=== PATIENT | male | born 1950 | race Caucasian/White ===

== ENCOUNTER 2020-02-20 09:42 | Inpatient (IN) ==
[2020-02-20] MEDS ORDERED: DEXTROSE 50% 50 ML VIAL IV ONE (09:56)
[2020-02-20] MEDS ORDERED: 0.9 % SODIUM CHLORIDE 1,000 ML IV ONE ×2 (10:05→14:09)
--- NOTE | 2020-02-20 10:20 | Emergency Department Note ---
Weakness HPI General Chief complaint: Weakness Stated complaint: Low bp, not eating or drinking Time Seen by Provider: 02/20/20 10:04 Source: EMS Mode of arrival: EMS Limitations: physical limitation History of Present Illness HPI Narrative: Narrative: This 69-year-old gentleman is here accompanied by his , Meli, and was transported by EMS who found him to have a blood pressure 82/55 and a low blood sugar of 35 in route. Patient has had poor oral intake for several days, no appetite, and reports she was trying to get him to eat something. He has not really even drank. She did not believe he urinated at all yesterday and then became incontinent this morning. He was too weak to get out of his chair. He has been in the chair, recliner, for several days. His is the one who called EMS. He has had some chills and sweats beginning yesterday. He reports "I feel like crap" x2 to 3 days and this includes weakness, tiredness and some discomfort in his back and neck areas which are chronic as well. She reports that he last truly 8 5 days ago. She reports that he did some mcghee ucinating. He does not use oxygen at home. He has not had alcohol for a couple of days. He usually drinks 3-4 drinks of vodka per day. He has not had a history of withdrawals. No new shakiness. He always has a slight tremor. No previous low blood sugars. Has had some leg swelling but his legs have been down because of the reclining sitting position. Related Data Previous Rx's Medication Instructions Recorded acetaminophen 240 mg-codeine 24 7.5 ml PO QID PRN #120 ml 03/14/19 mg/10 mL (10 mL) oral solution doxycycline hyclate 100 mg tablet 100 mg PO BID #20 tab 03/14/19 amoxicillin 875 mg-potassium 1 tab PO BID 10 Days #20 tab 05/12/19 clavulanate 125 mg tablet amlodipine 10 mg tablet 10 mg PO QDAY #90 tab 08/15/19 atorvastatin 40 mg tablet 40 mg PO QDAY #90 tab 08/15/19 lansoprazole 30 mg capsule,delayed 30 mg PO QDAY #90 cap 08/15/19 release losartan 100 1 tab PO QDAY #90 tab 03/30/20 mg-hydrochlorothiazide 25 mg tablet nadolol 40 mg tablet 40 mg PO QDAY #90 tab 08/15/19 sertraline 50 mg tablet 50 mg PO QDAY #90 tab 08/15/19 Allergies Allergy/AdvReac Type Severity Reaction Status Date / Time No Known Drug Allergies Allergy Verified 02/20/20 09:42 Review of Systems ROS ROS Narrative: Narrative: No fevers at home but has had the chills and sweats yesterday Has had a little blurry vision no sore throat. Has some chronic runny nose. Has a mild no cough. Has some chronic phlegm. No abdominal pain, nausea, vomiting, diarrhea, constipation, hematochezia. No dysuria. Has the incontinence this morning. No headaches. Does feel generally quite weak. No anxiety or depression. Has some recent grief due to the loss of the past several days. Feels quite fatigued. He does feel cold quite a bit of the time but is not reactive. No bruising. PFS Narrative Patient History Narrative: Narrative: DENIES: Diabetes, coronary artery disease, [place], renal disease, COPD, DVT, PE, BAILEE, pneumonia, chronic narcotics (had been previously but off for 3 or 4 year s), CVA, TIA, anxiety, depression. Medical/Surgical/Family History All Active Problems (Updated 02/20/20 @ 15:09 by Frank Arrieta DO) Acute dehydration (Acute) Rhabdomyolysis (Acute) Acute renal failure (ARF) (Acute) Hypotension (Acute) Hyponatremia (Acute) Elevated brain natriuretic peptide (BNP) level (Acute) Hypocalcemia (Acute) Alcoholism, chronic (Acute) Hypoglycemia (Acute) High anion gap metabolic acidosis (Acute) Thrombocytopenia (Acute) Alcohol abuse, daily use (Chronic) Chronic low back pain without sciatica (Chronic) Arthritis of right acromioclavicular joint (Chronic) Essential (primary) hypertension (Chronic) Depression (Chronic) Joint pain (Chronic) Insomnia (Chronic) High cholesterol (Chronic) High blood pressure (Chronic) Arthritis (Chronic) Acid reflux (Chronic) Medical History (Updated 02/20/20 @ 15:09 by Frank Arrieta DO) Acid reflux (Chronic) Alcohol abuse, daily use (Chronic) Arthritis (Chronic) High blood pressure (Chronic) High cholesterol (Chronic) Insomnia (Chronic) Joint pain (Chronic) Surgical History (Updated 02/20/20 @ 10:13 by Frank Arrieta DO) History of colonoscopy (Chronic) No history of previous surgery (Inactive) Family History Migraines Mother Social History Smoking Status: Never smoker Alcohol Intake Frequency: 2+ drinks per day Substance Use: does not use Exam Narrative Narrative: Narrative: General Limitations: physical limitation General appearance: Present alert, anxious (And his general appearance/countenance although not acting so much.), in no apparent distress, nontoxic, obese and other (Wide-awake.) Head Head: Present atraumatic and normocephalic Eye Eye: Present normal appearance, PERRL (2-1/2 mm constricting mildly bilaterally.) and EOMI ENT ENT: Present mucous membranes dry (Very dry) and other (Midline tongue and uvula.) Neck Neck: Present trachea midline; Absent lymphadenopathy and thyromegaly Chest Chest: Present symmetric chest wall rise Respiratory Respiratory: Present wheezes (Rare), accessory muscle use (Slight), decreased breath sounds and other (Oximetry keeps dipping down to as low as 86% with good tracking on the pleth; oxygen added.); Absent respiratory distress, rales/crackles, stridor and prolonged expiratory phase Cardiovascular Cardiovascular: Present regular rate, normal rhythm and other (Quite distant.); Absent systolic murmur and diastolic murmur Adbominal Abdominal: Present soft, tenderness (Mild-moderate diffuse.) and other (Quite abdominally obese. Moderately tympanitic in the upper abdomen.); Absent distention, guarding, rebound, rigidity, organomegaly and mass Extremities Extremities: Present pedal edema (Trace bilateral), pretibial edema (Mild bilateral pitting. 1/4 in the ankles.) and other (Moderately cool in his hands.); Absent calf tenderness and cyanosis Back Back: Present tenderness (Generalized in the low back.); Absent CVA tenderness (R), CVA tenderness (L) and spinous process tenderness Neurological Neurological: Present alert, oriented X3 and other (Speech is a little slow.) Psychiatric Psychiatric: Present flat affect and serious; Absent depressed, agitated, anxious and poor eye contact Skin Skin: Present cool, dry and pallor (Mild.); Absent cyanosis Course Vital Signs Vital signs: Vital Signs Temperature 97.6 F 02/20/20 09:43 Pulse Rate 73 02/20/20 09:43 Respiratory Rate 20 02/20/20 09:43 Blood Pressure 124/105 02/20/20 09:43 Pulse Oximetry (%) 96 02/20/20 09:43 Temperature 97.6 F 02/20/20 09:43 Pulse Rate 80 02/20/20 14:58 Respiratory Rate 20 02/20/20 14:58 Blood Pressure 104/57 02/20/20 14:50 Pulse Oximetry (%) 99 02/20/20 14:58 MDM MDM Narrative Medical decision making narrative: No available old EKG.Narrative: 9:52 AM interviewed and examined. Weakness times several days. Poor oral intake x5 days. History of alcoholism chronic daily. We will do multiple labs and work-ups. With the hypoxia I am choosing to do an ABG and lactate. Will do alcohol level and chest x-ray as well. 10:21 AM - EKG demonstrates repolarization abnormality consider ischemia in the anterior leads. This per the interpretation. There is 1 mm to 1.5 mm depression in V3-V5. Flattening in 2 3 and aVF. Rate is somewhat irregular. Probable A. fib with some premature contractions. Repeat blood sugar initially was 95 or thereabouts. A follow-up 1 was 65. D10 NS ordered. 10:55 AM - ABG with a pH of 7.27, PCO2 of 29, PO2 of 75. Base excess low at - 12.2. Bicarb quite low also at 13.3. Plus a rather significant acidosis, metabolic, partially compensated. Lactic acid on the ABG 1.7. 11:26 AM chest x-ray borderline cardiomegaly but no evidence of CHF or infilt rate. Because of patient's significant metabolic acidosis, starvation related probably, recurring low blood sugars, likely will need to be admitted. Multiple labs still pending. 12:10 PM patient's blood pressures have crept downward even into the 70s. Additional fluids were given. Blood sugar at 122. Blood pressures did seem to come up with this but later crept back down. Additional history includes that he has had several episodes of diarrhea today. CBC comes back with 13.0/37.7 and this is not unusual for him it does not appear that as far as I can tell. Platelets low at 102. Alcohol level 0.010. CK elevated at 1967. Patient's blood sugars required additional D5 normal saline to be infused. He is given an additional liter of combination of D5 NS and NS due to persisting low blood pressures. And with this levo fed ordered. Blood pressures came up to 90s, map of 67. Levophed held but if it persists going well will be started. 2:54 PM I spoke with Dr. Nava regarding patient's metabolic acidosis with anion gap and his acute renal failure. He asks about if patient has ingested anything such as antifreeze. He is willing to follow-up on patient. 3:00 Call out to hospitalist for admission. 3:18 PM - I spoke with hospitalist, Dr. Bogdan Julien, and reviewed patient's circumstances and issues, and he is willing to accept patient's care. I believe patient will be going to ICU. Lab Data Result diagrams: 02/20/20 10:17 02/20/20 10:17 Labs: Lab Results 02/20/20 02/20/20 02/20/20 Range/Units 10:17 10:17 10:17 WBC 8.5 (4.5-11.0) K/mcL RBC 3.58 L (4.50-5.90) M/mcL Hgb 13.0 L (13.5-16.5) g/dL Hct 37.7 L (41.0-55.0) % MCV 105.3 H (80.0-100.0) fL MCH 36.3 H (26.0-34.0) pg MCHC 34.5 (31.0-36.0) g/dL RDW 13.2 (11.5-14.5) % Plt Count 102 L (140-440) K/mcL MPV 10.4 (7.4-10.4) fL Neut % (Auto) 87.8 H (38.0-78.0) % Lymph % (Auto) 3.5 L (15.0-49.0) % [place] % (Auto) 6.1 (1.0-12.0) % Eos % (Auto) 2.5 (0.0-7.0) % Baso % (Auto) 0.1 (0.0-2.0) % Lymph # (Auto) 0.30 L (1.50-4.80) K/mcL [place] # (Auto) 0.52 (0.10-0.90) K/mcL Eos # (Auto) 0.21 (0.00-0.70) K/mcL Baso # (Auto) 0.01 (0.00-0.20) K/mcL Sodium 129 L (133-145) mmol/L Potassium 3.3 (3.3-5.1) mmol/L Chloride 83 L (96-108) mmol/L Carbon Dioxide 11 L (22-30) mmol/L Anion Gap 35.0 H (8.0-16.0) BUN 44 H (8-23) mg/dL Creatinine 3.6 H (0.7-1.2) mg/dL GFR Calculation 16 Glucose 84 (70-105) mg/dL Calcium 8.0 L (8.6-10.4) mg/dL Magnesium 1.6 (1.6-2.5) mg/dL Total Bilirubin 1.4 H (0.1-1.0) mg/dL AST 167 H (<40) U/L ALT 107 H (<40) U/L Alkaline Phosphatase 130 H (39-117) U/L Total Creatine Kinase (24-195) U/L Troponin T 0.01 (<0.03) ng/mL NT-Pro-B Natriuret Pep 1596.0 H (<125.0) pg/mL Total Protein 6.2 (5.9-8.4) gm/dL Albumin 3.2 (3.2-5.2) gm/dL Globulin 3.0 (2.2-3.7) gm/dL Albumin/Globulin Ratio 1.1 (1.0-2.3) TSH 0.56 (0.27-5.01) uIU/mL Ethyl Alcohol (<0.010) gm/dL Abs Neutrophil Control 7.44 (1.80-8.00) K/mcL 02/20/20 02/20/20 Range/Units 10:17 10:17 WBC (4.5-11.0) K/mcL RBC (4.50-5.90) M/mcL Hgb (13.5-16.5) g/dL Hct (41.0-55.0) % MCV (80.0-100.0) fL MCH (26.0-34.0) pg MCHC (31.0-36.0) g/dL RDW (11.5-14.5) % Plt Count (140-440) K/mcL MPV (7.4-10.4) fL Neut % (Auto) (38.0-78.0) % Lymph % (Auto) (15.0-49.0) % Carroll % (Auto) (1.0-12.0) % Eos % (Auto) (0.0-7.0) % Baso % (Auto) (0.0-2.0) % Lymph # (Auto) (1.50-4.80) K/mcL [place] # (Auto) (0.10-0.90) K/mcL Eos # (Auto) (0.00-0.70) K/mcL Baso # (Auto) (0.00-0.20) K/mcL Sodium (133-145) mmol/L Potassium (3.3-5.1) mmol/L Chloride (96-108) mmol/L Carbon Dioxide (22-30) mmol/L Anion Gap (8.0-16.0) BUN (8-23) mg/dL Creatinine (0.7-1.2) mg/dL GFR Calculation Glucose (70-105) mg/dL Calcium (8.6-10.4) mg/dL Magnesium (1.6-2.5) mg/dL Total Bilirubin (0.1-1.0) mg/dL AST (<40) U/L ALT (<40) U/L Alkaline Phosphatase (39-117) U/L Total Creatine Kinase 1967 H (24-195) U/L Troponin T (<0.03) ng/mL NT-Pro-B Natriuret Pep (<125.0) pg/mL Total Protein (5.9-8.4) gm/dL Albumin (3.2-5.2) gm/dL Globulin (2.2-3.7) gm/dL Albumin/Globulin Ratio (1.0-2.3) TSH (0.27-5.01) uIU/mL Ethyl Alcohol 0.010 H (<0.010) gm/dL Abs Neutrophil Control (1.80-8.00) K/mcL Discharge Plan Patient/Caregiver Discharge Instructions Pt seen by CLINICAL RESEARCH DIRECTOR/PA only: No Clinical Impression: Acute dehydration, Rhabdomyolysis, Acute renal failure (ARF), Hypotension, Hyponatremia, Elevated brain natriuretic peptide (BNP) level, Hypocalcemia, Alcoholism, chronic, Hypoglycemia, High anion gap metabolic acidosis, Thrombocytopenia Patient Disposition: Xfer As Inpt ([facility]) Follow up with: Scott Jasso DO [Primary Care Provider] - Prescriptions: No Action amoxicillin-pot clavulanate [Augmentin] 875-125 mg tablet 1 tab PO BID 10 Days Qty: 20 RF: 0 amlodipine 10 mg tablet 10 mg PO QDAY Qty: 90 RF: 3 atorvastatin 40 mg tablet 40 mg PO QDAY Qty: 90 RF: 3 lansoprazole 30 mg capsule,delayed release(DR/EC) 30 mg PO QDAY Qty: 90 RF: 3 losartan-hydrochlorothiazide 100-25 mg tablet 1 tab PO QDAY Qty: 90 RF: 3 nadolol 40 mg tablet 40 mg PO QDAY Qty: 90 RF: 3 sertraline 50 mg tablet 50 mg PO QDAY Qty: 90 RF: 3 doxycycline hyclate 100 mg tablet 100 mg PO BID Qty: 20 RF: 0 acetaminophen 240 mg-codeine 24 mg/10 mL (10 mL) oral solution 240 mg-24 mg /1 0 mL (10 mL) solution 7.5 ml PO QID PRN (Reason: shortness of breath or wheezing) Qty: 120 RF: 0
--- NOTE | 2020-02-20 11:05 | XRay Report ---
HISTORY: Hypoxia, low blood pressure, weakness and cough FINDINGS: Heart appears mildly enlarged and is larger than it was on a prior two-view chest x-ray done on 03/14/19. However, current study was done portably which magnifies the heart size. There is no congestive heart failure or pleural effusion. The lungs are clear. The mediastinum and hilar normal. IMPRESSION: Borderline Cardiomegaly and no evidence of pneumonia or congestive heart failure Interpreted and Authenticated by: Tan Varghese 02/20/20
[2020-02-20] MEDS ORDERED: DEXTROSE 5%-NS 1,000 ML IV ONE (11:37)
[2020-02-20 12:19] LABS: Basophils # (Auto) 0.01 K/mcL (0.00-0.20); Basophils % (Auto) 0.1 % (0.0-2.0); Eosinophils # (Auto) 0.21 K/mcL (0.00-0.70); Eosinophils % (Auto) 2.5 % (0.0-7.0); Hematocrit 37.7 % (41.0-55.0); Lymphocytes % (Auto) 3.5 % (15.0-49.0); Mean Cell Volume 105.3 fL (80.0-100.0); Mean Corpuscular HGB Conc 34.5 g/dL (31.0-36.0); Mean Platelet Volume 10.4 fL (7.4-10.4); Monocytes # (Auto) 0.52 K/mcL (0.10-0.90); Monocytes % (Auto) 6.1 % (1.0-12.0); Neutrophils % (Auto) 87.8 % (38.0-78.0); Platelet Count 102 K/mcL (140-440); RBC 3.58 M/mcL (4.50-5.90); Red Cell Distribution Width 13.2 % (11.5-14.5); WBC 8.5 K/mcL (4.5-11.0)
[2020-02-20 12:27] LABS: Alcohol, Blood < 10.0 mg/dL
[2020-02-20 12:32] LABS: Creatine Kinase 1967 U/L (24-195)
[2020-02-20 14:44] LABS: ALT/SGPT 107 U/L (<40); AST/SGOT 167 U/L (<40); Albumin 3.2 gm/dL (3.2-5.2); Albumin/Globulin Ratio 1.1 (1.0-2.3); Alkaline Phosphatase 130 U/L (39-117); Bilirubin,Total 1.4 mg/dL (0.1-1.0); Blood Urea Nitrogen 44 mg/dL (8-23); Carbon Dioxide 11 mmol/L (22-30); Chloride 83 mmol/L (96-108); Glomerular Filtration Rate 16; Glucose 84 mg/dL (70-105)
[2020-02-20] MEDS ORDERED: NOREPINEPHRINE BITARTRATE 8 MG in 0.9 % SODIUM CHLORIDE 242 ML IV SCH (14:45)
[2020-02-20] MEDS ORDERED: 0.9 % SODIUM CHLORIDE 250 ML IV SCH (14:45)
[2020-02-20 14:46] LABS: Thyroid Stimulating Hormone 0.56 uIU/mL (0.27-5.01)
[2020-02-20] MEDS ORDERED: THIAMINE 100 MG in 0.9 % SODIUM CHLORIDE 50 ML IV ONE ×2 (15:15→16:32)
--- NOTE | 2020-02-20 15:27 | Nephrology Consult Note ---
HPI Data of Consult Primary Care Provider: Scott Jasso DO Consult Narrative Patient Information: Note initiated : 02/20/20 at 3:22 pm Service Date, if different from initiated Date: [] Patient: Sindhu Delgado 69 y/o M admitted on for Low BP, Not Eating/Drinking. Chief Complaint: [Sick] cc:: CC: I was asked to provide renal consultation on this 69-year-old woman who prese nted to the ER with multiple fluid and electrolyte abnormalities, hypotension refractory to 2-1/2 L of IV fluids, metabolic acidosis, elevated alcohol level, acute renal failure with prior serum creatinine normal in 2019. She also had some hypoglycemia requiring IV dextrose. While she is hypotensive now he has a history of hypertension being treated with a combination of calcium channel xavier, beta-xavier, NOLA inhibitors. Additional history provided by the patient's who is at the bedside includes that he has been retired for a number of years, consumes 4 or so alcoholic beverages a day, has no history of previous renal dysfunction, congestive heart failure, etc. No recent nausea or vomiting but he does report some diarrhea this morning. Not been eating or drinking much for over a week but has continued to take his medications which included amlodipine 10mg, losartan HCT 100/25, nadalol 40 mg. Laboratory Results - last 48 hr 02/20/20 02/20/20 02/20/20 10:17 10:17 10:17 WBC 8.5 RBC 3.58 L Hgb 13.0 L Hct 37.7 L MCV 105.3 H MCH 36.3 H MCHC 34.5 RDW 13.2 Plt Count 102 L MPV 10.4 Neut % (Auto) 87.8 H Lymph % (Auto) 3.5 L [place] % (Auto) 6.1 Eos % (Auto) 2.5 Baso % (Auto) 0.1 Lymph # (Auto) 0.30 L [place] # (Auto) 0.52 Eos # (Auto) 0.21 Baso # (Auto) 0.01 Sodium 129 L Potassium 3.3 Chloride 83 L Carbon Dioxide 11 L Anion Gap 35.0 H BUN 44 H Creatinine 3.6 H GFR Calculation 16 Glucose 84 Calcium 8.0 L Magnesium 1.6 Total Bilirubin 1.4 H AST 167 H ALT 107 H Alkaline Phosphatase 130 H Total Creatine Kinase 1967 Troponin T 0.01 NT-Pro-B Natriuret Pep 1596.0 H Total Protein 6.2 Albumin 3.2 Globulin 3.0 Albumin/Globulin Ratio 1.1 TSH 0.56 Ethyl Alcohol 0.1 Abs Neutrophil Control 7.44 Do not correct the acidosis until the potassium has improved as this will further decrease the serum K level. We need to see the PO4 level before giving much in the way of IV glucose to prevent rhabdomyolysis. Once ethylene glycol intoxication has been ruled out, the next best explanation for this constellation of lab abnormalities would be alcoholic ketoacidosis or sepsis with a huge lactic acidosis. Obstruction needs to be ruled out as well. The lisinopril effect could take 72 hrs to wear off but there is no acute need for dialysis at this juncture. Constitutional Constitutional: Present as per HPI, anorexia, fatigue, lethargy, malaise and we akness; Absent fever(s) EENT Eyes: Present as per HPI Cardiovascular Cardiovascular: Present as per HPI, dyspnea and edema Respiratory Respiratory: Present cough, dyspnea, wheezing and excessive phlegm production Gastrointestinal Gastrointestinal: Present diarrhea Musculoskeletal Musculoskeletal: Present other Additional comments: No walking for about the past week Integumentary Integumentary: Present as per HPI and other Additional comments: . Neurological Neurological: Present abnormal gait, confusion, disequilibrium, tremor(s) and weakness Psychiatric Psychiatric: Present as per HPI and behavioral changes Additional comments: Prescribed SSRI Endocrine Endocrine: Present fatigue Hematologic/Lymphatic Hematologic/Lymphatic: Present easy bruising Allergic/Immunologic Allergic/Immunologic: Present as per HPI PFSH PFSH All Active Problems (Updated 02/20/20 @ 17:01 by Stephane Nava MD) Electrolyte abnormality (Acute) Acute dehydration (Acute) Rhabdomyolysis (Acute) Acute renal failure (ARF) (Acute) Hypotension (Acute) Hyponatremia (Acute) Elevated brain natriuretic peptide (BNP) level (Acute) Hypocalcemia (Acute) Alcoholism, chronic (Acute) Hypoglycemia (Acute) High anion gap metabolic acidosis (Acute) Thrombocytopenia (Acute) Alcohol abuse, daily use (Chronic) Chronic low back pain without sciatica (Chronic) Arthritis of right acromioclavicular joint (Chronic) Essential (primary) hypertension (Chronic) Depression (Chronic) Joint pain (Chronic) Insomnia (Chronic) High cholesterol (Chronic) High blood pressure (Chronic) Arthritis (Chronic) Acid reflux (Chronic) Medical History (Updated 02/20/20 @ 17:01 by Stephane Nava MD) Acid reflux (Chronic) Alcohol abuse, daily use (Chronic) Arthritis (Chronic) High blood pressure (Chronic) High cholesterol (Chronic) Insomnia (Chronic) Joint pain (Chronic) Surgical History (Updated 02/20/20 @ 10:13 by Frank Arrieta DO) History of colonoscopy (Chronic) No history of previous surgery (Inactive) Family History Mother Migraines Social History (Updated 02/20/20 @ 15:56 by Bogdan Julien DO) marital status: occupational status: retired smoking status: Never smoker alcohol intake frequency: 2+ drinks per day substance use type: does not use additional history: States 3-4 drinks of vodka per day MEDS/ALLERGIES Home Medications and Allergies Home Medications Medication Instructions Recorded Confirmed Type amlodipine 10 mg tablet 10 mg PO QDAY #90 tab 08/15/19 02/20/20 Rx atorvastatin 40 mg tablet 40 mg PO QDAY #90 tab 08/15/19 02/20/20 Rx lansoprazole 30 mg capsule,delayed 30 mg PO QDAY #90 cap 08/15/19 02/20/20 Rx release losartan 100 1 tab PO QDAY #90 tab 08/15/19 02/20/20 Rx mg-hydrochlorothiazide 25 mg tablet nadolol 40 mg tablet 40 mg PO QDAY #90 tab 08/15/19 02/20/20 Rx sertraline 50 mg tablet 50 mg PO QDAY #90 tab 08/15/19 02/20/20 Rx Allergies Allergy/AdvReac Type Severity Reaction Status Date / Time No Known Drug Allergies Allergy Verified 02/20/20 09:42 Physical Examination Vital Signs Vital signs: Temp Pulse Resp BP Pulse Ox 36.4 C 80 20 104/57 99 02/20/20 09:43 02/20/20 14:58 02/20/20 14:58 02/20/20 14:50 02/20/20 14:58 General Appearance General appearance: obese and chronically ill Exam Narrative: Disheveled EENT EENT: ATNC, PERRL and mucous membranes dry Neck Neck: no JVD, no carotid bruit and supple Respiratory Respiratory: no kyphosis, scoliosis, wheezing, course breath sounds and rhonchi Cardiovascular Cardiology: no murmurs, no gallops, edema, regular rate and regular rhythm Gastrointestinal Gastrointestinal: normoactive bowel sounds, no tenderness and no guarding Integumentary Integumentary: no rash and cool/clammy Neurologic Neurologic: no focal deficit, asterixis, strength 5/5 (4 out of 5 strength bilaterally) and CN 3-12 intact (No lateral rectus weakness) Musculoskeletal Musculoskeletal: no erythema, no cyanosis and no clubbing Psychiatric Psychiatric: mood/affect appropriate (Flat affect, answers appropriately) Results Lab Results Result Diagrams: 02/20/20 10:17 02/20/20 10:17 Lab results: Most recent lab results Calcium 8.0 mg/dL (8.6-10.4) L 02/20/20 10:17 Magnesium 1.6 mg/dL (1.6-2.5) 02/20/20 10:17 A/P Assessment and plan (1) Acute renal failure (ARF): Assessment and plan: Easiest explanation would be dehydration in the setting of hypotension and continued NOLA inhibitor administration Unfortunately that will not explain the bulk of the electrolyte abnormalities nor will I did explain the metabolic acidosis Rhabdomyolysis is present but seems to be low-grade I suspect part of what is going on is alcoholic ketoacidosis Must rule out ethylene glycol intoxication given the large metabolic acidosis We will need to calculate his serum osmolar gap, fractional excretion of sodium, look for granular casts as well as calcium oxalate crystals as soon as the urine becomes available. Continue hydration with methodist of systolic blood pressure around 100 Status: Acute Comment: Last creatinine in 2019 was normal Qualifiers: Acute renal failure type: unspecified Qualified Code(s): N17.9 - Acute kidney failure, unspecified (2) High anion gap metabolic acidosis: Assessment and plan: Alcoholic ketoacidosis is my #1 choice With or without a component of lactic acidosis Need to rule out any need to rule out any methanol or ethylene glycol contributing though he denies drinking either of these Status: Acute (3) Alcoholism, chronic: Status: Acute Comment: reports 4-5 alcoholic beverages daily and he had a detectable alcohol level of 0.01 on admission. He has other hematologic signs of chronic alcohol use including high MCV and low platelet count (4) Hypotension: Status: Acute Comment: says his blood pressures been running running on the low side recently so could be due to his medications Qualifiers: Hypotension type: hypotension due to drug Qualified Code(s): I95.2 - Hypotension due to drugs (5) Electrolyte abnormality: Status: Acute Comment: Suspect alcohol related electrolyte abnormalities as acute renal failure from just dehydration and NOLA inhibitors tends to have a high potassium not low (6) Rhabdomyolysis: Assessment and plan: Suspect this is alcohol induced rhabdomyolysis need to check his phosphorus Status: Acute Comment: Suspect alcohol related Qualifiers: Encounter type: initial encounter Time Spent With Patient Time: Total time spent is greater than 50% in coordination of care (as documented) at patient's floor/unit and/or counseling patient:
[2020-02-20] MEDS ORDERED: [UNRECOGNIZED DRUG - REMARK] IV SCH (15:30)
[2020-02-20] MEDS ORDERED: [UNRECOGNIZED DRUG - REMARK] IV SCH (15:30)
--- NOTE | 2020-02-20 16:09 | Internal Med History&Physical ---
HPI History of Present Illness Patient information: Note initiated : 02/20/20 at 3:53 pm Service Date, if different from initiated Date: [] Patient: Sindhu Delgado a 69 y/o M admitted on for Low BP, Not Eating/Drinking. Chief Complaint: [] History of present illness: Mr. Delgado is a 69 year old M Presents the ED with weakness. History obtained from the patient as well as patient's . Patient is quite sedentary, sitting in chair most of the day, and does not eat very much typically a meal per day per his . About 5 days ago with adequate down their dog who is emotionally attached to and is quite devastating for him. That time he lost interest in eating. He has continued to drink for which he drinks 3-4 drinks of liquor per day although says he did have is much yesterday. Per the he acted a little confused this morning. Did have one episode of diarrhea in the ED. Denies chest pain or shortness of breath or abdominal pain. Denies headache fevers. Per he is always slightly tremulous but he seemed more shaky this morning. She called EMS who arrived and found that he was hypotensive and he had hypoglycemia and was given fluids and glucose. ED he was given almost 3 L of IV fluid. His says he looks better than when he arrived. Review of Systems: Pertinent positives as above. Denies headache/fevers/nausea/vomiting/chest or abdominal pain/cough/dyspnea. Remaining 10 point review of system reviewed negative PFSH PFSH All Active Problems (Updated 02/20/20 @ 15:09 by Frank Arrieta DO) Acute dehydration (Acute) Rhabdomyolysis (Acute) Acute renal failure (ARF) (Acute) Hypotension (Acute) Hyponatremia (Acute) Elevated brain natriuretic peptide (BNP) level (Acute) Hypocalcemia (Acute) Alcoholism, chronic (Acute) Hypoglycemia (Acute) High anion gap metabolic acidosis (Acute) Thrombocytopenia (Acute) Alcohol abuse, daily use (Chronic) Chronic low back pain without sciatica (Chronic) Arthritis of right acromioclavicular joint (Chronic) Essential (primary) hypertension (Chronic) Depression (Chronic) Joint pain (Chronic) Insomnia (Chronic) High cholesterol (Chronic) High blood pressure (Chronic) Arthritis (Chronic) Acid reflux (Chronic) Medical History (Updated 02/20/20 @ 15:09 by Frank Arrieta DO) Acid reflux (Chronic) Alcohol abuse, daily use (Chronic) Arthritis (Chronic) High blood pressure (Chronic) High cholesterol (Chronic) Insomnia (Chronic) Joint pain (Chronic) Surgical History (Updated 02/20/20 @ 10:13 by Frank Arrieta DO) History of colonoscopy (Chronic) No history of previous surgery (Inactive) Family History Mother Migraines Social History (Updated 02/20/20 @ 15:56 by Bogdan Julien DO) marital status: occupational status: retired smoking status: Never smoker alcohol intake frequency: 2+ drinks per day substance use type: does not use additional history: States 3-4 drinks of vodka per day MEDS/ALLERGIES Home Medications and Allergies Home Medications Medication Instructions Recorded Confirmed Type acetaminophen 240 mg-codeine 24 7.5 ml PO QID PRN #120 ml 03/14/19 05/09/19 Rx mg/10 mL (10 mL) oral solution doxycycline hyclate 100 mg tablet 100 mg PO BID #20 tab 03/14/19 05/09/19 Rx amoxicillin 875 mg-potassium 1 tab PO BID 10 Days #20 tab 05/12/19 Rx clavulanate 125 mg tablet amlodipine 10 mg tablet 10 mg PO QDAY #90 tab 08/15/19 Rx atorvastatin 40 mg tablet 40 mg PO QDAY #90 tab 08/15/19 Rx lansoprazole 30 mg capsule,delayed 30 mg PO QDAY #90 cap 08/15/19 Rx release losartan 100 1 tab PO QDAY #90 tab 08/15/19 Rx mg-hydrochlorothiazide 25 mg tablet nadolol 40 mg tablet 40 mg PO QDAY #90 tab 08/15/19 Rx sertraline 50 mg tablet 50 mg PO QDAY #90 tab 08/15/19 Rx Allergies Allergy/AdvReac Type Severity Reaction Status Date / Time No Known Drug Allergies Allergy Verified 02/20/20 09:42 EXAM Constitutional Vitals: Temp Pulse Resp BP Pulse Ox 97.6 F 80 20 104/57 99 02/20/20 09:43 02/20/20 14:58 02/20/20 14:58 02/20/20 14:50 02/20/20 14:58 Exam: General: Alert, Awake, No acute Distress Eyes/N/T: EOMI, PERRL, dry MM Head/Neck: neck supple, normocephalic atraumatic CV: RRR, No murmurs, normal s1/s2 Pulm: Mild expiratory wheeze b/l, no rhonchi Abd: soft, nontender, +BS x4 Ext: no clubbing/cyanosis 2+ b/l LE edema Neuro: Alert, no focal deficits, moves all extremities, CN 2-12 grossly intact, symmetrical strength b/l upper/lower, sensations intact b/l upper/lower Skin: warm/dry DATA Data Completed and Pending Labs: Labs from last 24 hours 02/20/20 02/20/20 02/20/20 10:17 10:17 10:17 WBC RBC Hgb Hct MCV MCH MCHC RDW Plt Count MPV Neut % (Auto) Lymph % (Auto) Mchenry % (Auto) Eos % (Auto) Baso % (Auto) Lymph # (Auto) Mchenry # (Auto) Eos # (Auto) Baso # (Auto) Sodium Potassium Chloride Carbon Dioxide Anion Gap BUN Creatinine GFR Calculation Glucose Osmolality Pending Calcium Phosphorus Magnesium Pending Total Bilirubin AST ALT Alkaline Phosphatase Total Creatine Kinase Troponin T NT-Pro-B Natriuret Pep Total Protein Albumin Globulin Albumin/Globulin Ratio TSH Salicylates Pending Ethylene Glycol Pending Ethyl Alcohol Abs Neutrophil Control 02/20/20 02/20/20 02/20/20 10:17 10:17 10:17 WBC RBC Hgb Hct MCV MCH MCHC RDW Plt Count MPV Neut % (Auto) Lymph % (Auto) Mchenry % (Auto) Eos % (Auto) Baso % (Auto) Lymph # (Auto) Mchenry # (Auto) Eos # (Auto) Baso # (Auto) Sodium Potassium Chloride Carbon Dioxide Anion Gap BUN Creatinine GFR Calculation Glucose Osmolality Calcium Phosphorus Pending Magnesium Total Bilirubin AST ALT Alkaline Phosphatase Total Creatine Kinase 1967 H Troponin T NT-Pro-B Natriuret Pep Total Protein Albumin Globulin Albumin/Globulin Ratio TSH Salicylates Ethylene Glycol Ethyl Alcohol 0.010 H Abs Neutrophil Control 02/20/20 02/20/20 02/20/20 10:17 10:17 10:17 WBC 8.5 RBC 3.58 L Hgb 13.0 L Hct 37.7 L MCV 105.3 H MCH 36.3 H MCHC 34.5 RDW 13.2 Plt Count 102 L MPV 10.4 Neut % (Auto) 87.8 H Lymph % (Auto) 3.5 L Mchenry % (Auto) 6.1 Eos % (Auto) 2.5 Baso % (Auto) 0.1 Lymph # (Auto) 0.30 L Mchenry # (Auto) 0.52 Eos # (Auto) 0.21 Baso # (Auto) 0.01 Sodium 129 L Potassium 3.3 Chloride 83 L Carbon Dioxide 11 L Anion Gap 35.0 H BUN 44 H Creatinine 3.6 H GFR Calculation 16 Glucose 84 Osmolality Calcium 8.0 L Phosphorus Magnesium 1.6 Total Bilirubin 1.4 H AST 167 H ALT 107 H Alkaline Phosphatase 130 H Total Creatine Kinase Troponin T 0.01 NT-Pro-B Natriuret Pep 1596.0 H Total Protein 6.2 Albumin 3.2 Globulin 3.0 Albumin/Globulin Ratio 1.1 TSH 0.56 Salicylates Ethylene Glycol Ethyl Alcohol Abs Neutrophil Control 7.44 A/P Narrative A/P Narrative: A: *Hypovolemic shock: *SULLY on likely CKD II: prerenal + possible ATN from above, doubt rhabdo *AG Met acidosis: 2/2 above + starvation ketosis + etoh *ETOH abuse with mild w/d: *Hypoglycemia: 2/2 poor diet + chronic etoh *Volume Depletion: *Hyponatremia/chloride: 2/2 beer potomania *Elevated CPK: 2/2 immobilization/etoh *Transaminitis, mild: 2/2 hypotension/?etoh component *HTN/HLD: *GERD: *FTT: 2/2 chronic alcoholism + recent life event P: -IVF, wean off vasopressors -monitor UOP, i/o -CIWA, prn Benzo, MVI/Thiamine/Folate -monitor BG -pending UA for casts and other metabolic studies -f/u CPK -Nephrology Consulted, further studies pending -check prealbumin -clarify home meds -hold home ARB/BB/CCB -cont home SSRI -pt/ot -ppx: heparin/home ppi DNR Time Spent With Patient Time: Total time spent is greater than 50% in coordination of care (as documented) at patient's floor/unit and/or counseling patient:
[2020-02-20] MEDS ORDERED: ACETAMINOPHEN 325 MG TABLET PO PRN (16:32)
[2020-02-20] MEDS ORDERED: ONDANSETRON 4 MG/2 ML VIAL IV PRN (16:32)
[2020-02-20] MEDS ORDERED: IPRATROPIUM/ALBUTEROL 3 ML AMPUL.NEB NEB PRN (16:32)
[2020-02-20] MEDS: 0.9 % SODIUM CHLORIDE 250 ML IV SCH (16:39)
[2020-02-20] MEDS: LACTATED RINGERS 1,000 ML IV SCH (16:46)
[2020-02-20 18:51] LABS: INR 1.1 (0.9-1.1); Prothrombin Time 14.3 sec (11.9-14.5)
[2020-02-20 19:18] LABS: Sodium, Urine Random 17 mmol/L
[2020-02-20 19:23] LABS: Appearance,Urine CLEAR (Clear); Bilirubin,Urine Negative (Negative); Color,Urine YELLOW; Culture Indicated,Urine No; Glucose,Urine (UA) Negative (Negative); Ketones,Urine 20 mg/dL (Negative); Leukocyte Esterase,Urine Negative /ug (Negative); Mucus,Urine FEW /hpf; Nitrate,Urine Negative (Negative); Protein,Urine 100 mg/dL (Negative); Specific Gravity,Urine 1.016 (1.000-1.035); Urine Blood >=1.0 mg/dL (Negative); Urine Hyaline Cast 3 /lph (0-2); Urine RBC 15 /hpf (0-1); Urine Squamous Epithelial Cell 1 /hpf (0-4); Urine WBC 2 /hpf (0-4)
[2020-02-20] MEDS: FAMOTIDINE/PF 20 MG/2 ML VIAL IV SCH (20:46)
[2020-02-20] MEDS: HEPARIN 5,000 UNIT/ML VIAL SQ SCH (20:46)
[2020-02-20] MEDS: 0.9 % SODIUM CHLORIDE 10 ML SYRINGE IV SCH (20:46)
[2020-02-20 23:00] LABS: Osmolality,Urine 370 mOSM/kg (80-1000)
[2020-02-21] MEDS: METOPROLOL TARTRATE 5 MG/5 ML VIAL IV SCH (00:55)
[2020-02-21] MEDS: LACTATED RINGERS 1,000 ML IV SCH ×3 (02:18→13:44)
[2020-02-21 03:26] LABS: Albumin 2.9 gm/dL (3.2-5.2); Blood Urea Nitrogen 38 mg/dL (8-23); Calcium 7.5 mg/dL (8.6-10.4); Carbon Dioxide 11 mmol/L (22-30); Chloride 93 mmol/L (96-108); Glomerular Filtration Rate 24; Glucose 75 mg/dL (70-105); Phosphorous 2.6 mg/dL (2.5-4.5)
[2020-02-21] MEDS: NOREPINEPHRINE BITARTRATE 8 MG in 0.9 % SODIUM CHLORIDE 242 ML IV SCH ×2 (05:42→16:58)
[2020-02-21] MEDS: 0.9 % SODIUM CHLORIDE 250 ML IV SCH ×2 (05:42→15:39)
[2020-02-21] MEDS: 0.9 % SODIUM CHLORIDE 10 ML SYRINGE IV SCH ×3 (05:43→20:14)
--- NOTE | 2020-02-21 07:16 | Internal Med Progress Note ---
SUBJECTIVE Subjective Patient information: Note initiated : 02/21/20 at 7:05 am Service Date, if different from initiated Date: [] Patient: Sindhu Delgado a 69 y/o M admitted on 02/20/20 for Low BP, Not Eating/Drinking. Chief Complaint: [] Interval history: History of present illness: Mr. Delgado is a 69 year old M Presents the ED with weakness. History obtained from the patient as well as patient's . Patient is quite sedentary, sitting in chair most of the day, and does not eat very much typically a meal per day per his . About 5 days ago with adequate down their dog who is emotionally attached to and is quite devastating for him. That time he lost interest in eating. He has continued to drink for which he drinks 3-4 drinks of liquor per day although says he did have is much yesterday. Per the he acted a little confused this morning. Did have one episode of diarrhea in the ED. Denies chest pain or shortness of breath or abdominal pain. Denies headache fevers. Per he is always slightly tremulous but he seemed more shaky this morning. She called EMS who arrived and found that he was hypotensive and he had hypoglycemia and was given fluids and glucose. ED he was given almost 3 L of IV fluid. His says he looks better than when he arrived. 02/20 Patient states he is feeling better. No overnight issues. However nurse does state that he has lots of oral secretions and appears that he has a hard time clearing them at times. Will get speech therapy evaluating. Vasopressors off last night. Awaiting follow-up labs. Good urine output. Review of Systems: denies headache/fever/chills/nausea/vomiting/chest or abdominal pain/cough/dyspnea/diarrhea. Otherwise see above. Constitutional Vitals: Vital Signs Temp Pulse Resp BP Pulse Ox 97.6 F 81 18 122/74 98 02/21/20 04:01 02/20/20 18:01 02/21/20 07:01 02/21/20 07:01 02/21/20 07:01 Period Temp Pulse Resp BP Sys/Lomeli Pulse Ox Last 24 Hr 97.6 F-99.2 F 63-86 13-28 60-142/37-120 87-100 Intake and Output 02/20/20 02/21/20 02/21/20 21:59 05:59 13:59 Intake Total 2166 2166 Output Total 509 1565 180 Balance 1657 601 -180 Weight 119.777 kg Intake & Output: Intake & Output 02/20/20 02/21/20 02/21/20 21:59 05:59 13:59 Intake Total 2166 2166 Output Total 509 1565 180 Balance 1657 601 -180 Weight 119.777 kg Intake: IV 2153 2166 Sodium Chloride 0.9% 1,000 ml @ 1000 Wide Open IV BOLUS ONE Rx#: [id number] Sodium Chloride 0.9% 250 ml @ 167 20 mls/hr IV .[id number] [facility] Rx#: [id number] Dextrose 5%-Ns IV Solution 1, 1000 000 ml @ 250 mls/hr IV .Q4H ONE Rx#:[id number] Lactated Ringers 1,000 ml @ 100 953 mls/hr IV .Q10H [facility] Rx#: [id number] Levophed 8 mg In Sodium 103 27 Chloride 0.9% 242 ml @ 10 MCG/ MIN 18.75 mls/hr IV Q14H [facility] Rx #:[id number] Potassium Chloride 10 Meq 1019 Magnesium Sulfate 16.24 Meq Infuvite Adult 10 ml In Sodium Chloride 0.9% 1,000 ml @ 250 mls/hr IV .Q4H5M [facility] Rx#: [id number] Vitamin B1 100 mg In Sodium 51 Chloride 0.9% 50 ml @ 50 mls/hr IV ONCE ONE Rx#:[id number] Oral 12 Output: Urine Catheter Amount 509 1565 180 Other: Urine Appearance Clear Clear Clear Uretheral (Sanchez) Clear Clear Urine Color Dark Yellow Light Rosa Dark Yellow Uretheral (Sanchez) Light Rosa Light Rosa Urine Odor Normal Normal Uretheral (Sanchez) Normal Stool Size Large Stool Color Brown Stool Consistency Liquid Watery # Bowel Movements 1 # of times incontinent of 1 Bowels Exam: General: Alert, Awake, No acute Distress Eyes/N/T: EOMI, Head/Neck: neck supple, CV: RRR, No murmurs, Pulm: Mild expiratory wheeze b/l, no rhonchi Abd: soft, nontender, +BS x4 Ext: no clubbing/cyanosis 2+ b/l LE edema imroved with BERYL's Neuro: Alert, no focal deficits, moves all extremities, Skin: warm/dry OBJ DATA Labs CBC & Chem 7: 02/20/20 10:17 02/20/20 22:19 Labs: Abnormal Lab Results 02/20/20 02/20/20 02/20/20 22:19 22:19 17:00 RBC Hgb Hct MCV MCH Plt Count Neut % (Auto) Lymph % (Auto) Lymph # (Auto) Sodium Potassium 3.0 L Chloride 93 L Carbon Dioxide 11 L Anion Gap 29.0 H BUN 38 H Creatinine 2.6 H Calcium 7.5 L Total Bilirubin AST ALT Alkaline Phosphatase Total Creatine Kinase NT-Pro-B Natriuret Pep Albumin 2.9 L Prealbumin Beta-Hydroxybutyrate 6.72 H Urine Protein 100 A Urine Ketones 20 A Urine Occult Blood >=1.0 A Urine Urobilinogen 4.0 A Urine RBC 15 H Hyaline Casts 3 H Urine Mucus Few A Ethyl Alcohol 02/20/20 02/20/20 02/20/20 10:17 10:17 10:17 RBC Hgb Hct MCV MCH Plt Count Neut % (Auto) Lymph % (Auto) Lymph # (Auto) Sodium Potassium Chloride Carbon Dioxide Anion Gap BUN Creatinine Calcium Total Bilirubin AST ALT Alkaline Phosphatase Total Creatine Kinase 1967 H NT-Pro-B Natriuret Pep Albumin Prealbumin 12.4 L Beta-Hydroxybutyrate Urine Protein Urine Ketones Urine Occult Blood Urine Urobilinogen Urine RBC Hyaline Casts Urine Mucus Ethyl Alcohol 0.010 H 02/20/20 02/20/20 10:17 10:17 RBC 3.58 L Hgb 13.0 L Hct 37.7 L MCV 105.3 H MCH 36.3 H Plt Count 102 L Neut % (Auto) 87.8 H Lymph % (Auto) 3.5 L Lymph # (Auto) 0.30 L Sodium 129 L Potassium Chloride 83 L Carbon Dioxide 11 L Anion Gap 35.0 H BUN 44 H Creatinine 3.6 H Calcium 8.0 L Total Bilirubin 1.4 H AST 167 H ALT 107 H Alkaline Phosphatase 130 H Total Creatine Kinase NT-Pro-B Natriuret Pep 1596.0 H Albumin Prealbumin Beta-Hydroxybutyrate Urine Protein Urine Ketones Urine Occult Blood Urine Urobilinogen Urine RBC Hyaline Casts Urine Mucus Ethyl Alcohol Meds: Medications Acetaminophen (Tylenol) 650 mg PO Q4-6HP PRN PRN Reason: PAIN/FEVER > 101 Albuterol/Ipratropium (Duoneb) 3 ml NEB Q4HRT PRN PRN Reason: dysnpea Atorvastatin Calcium (Lipitor) 40 mg PO QDAY [facility] Chlordiazepoxide HCl (Librium) 25 mg PO Q4HP PRN PRN Reason: Alcohol Withdrawal Famotidine (Pepcid) 20 mg IV HS [facility] Last Admin: 02/20/20 20:46 Dose: 20 mg Documented by: Folic Acid (Folic Acid) 1 mg PO DAILY [facility] Heparin Sodium (Porcine) (Heparin) 5,000 unit SQ Q12 [facility] Last Admin: 02/20/20 20:46 Dose: 5,000 unit Documented by: Norepinephrine Bitartrate 8 mg (/ Sodium Chloride) 250 mls @ 18.75 mls/hr IV Q14H [facility]; Protocol Last Admin: 02/21/20 05:42 Dose: Not Given Documented by: Lactated Ringer's (Lactated Ringers) 1,000 mls @ 100 mls/hr IV .Q10H [facility] Last Admin: 02/21/20 02:18 Dose: 100 mls/hr Documented by: Thiamine HCl 100 mg/ Sodium (Chloride) 51 mls @ 50 mls/hr IV DAILY [facility] Sodium Chloride (Sodium Chloride 0.9%) 250 mls @ 20 mls/hr IV .[id number] [facility] Last Admin: 02/21/20 05:42 Dose: Not Given Documented by: Iron Carb/Multivit/Launderette Attendant/Folic Acid (Multivitamin W/Minerals) 1 tab PO DAILY [facility] Lorazepam (Ativan) 0 mg IV Q4HP PRN; Protocol PRN Reason: Alcohol Withdrawal Ondansetron HCl (Zofran) 4 mg IV Q4-6HP PRN PRN Reason: Nausea And Vomiting Sertraline HCl (Zoloft) 50 mg PO QDAY [facility] Sodium Chloride (Saline Flush) 10 ml IV Q8 [facility] Last Admin: 02/21/20 05:43 Dose: 10 ml Documented by: A/P Narrative A/P Narrative: A: *Hypovolemic shock: poor oral intake + BP meds -off levophed *SULLY on likely CKD II: prerenal + possible ATN from above + ACEI, doubt from rhabdo -improving. no granular casts, hyaline present *AG Met acidosis: 2/2 above + starvation/alcohol ketosis *ETOH abuse with mild w/d: *Hypoglycemia: 2/2 poor diet + chronic etoh *Volume Depletion: *Hyponatremia/chloride: 2/2 beer potomania. improving *Elevated CPK: 2/2 immobilization/etoh -no granular *Transaminitis, mild: 2/2 hypotension/?etoh component *HTN/HLD: *GERD: *FTT/Malnutrition: 2/2 chronic alcoholism + recent life event. prealbumin 12 P: -IVF decrease, weaned off vasopressors -monitor UOP, i/o -CIWA, prn Benzo, MVI/Thiamine/Folate -monitor BG -f/u CPK -Nephrology following, further studies pending -hold home ARB/BB/CCB -cont home SSRI -pt/ot -ST -ppx: heparin/home ppi DNR Time Spent With Patient Time: Total time spent is greater than 50% in coordination of care (as documented) at patient's floor/unit and/or counseling patient: QUALITY VTE Deep Vein Thrombosis/Pulmonary Embolism Present on Admission: No
[2020-02-21] MEDS ORDERED: POTASSIUM CHLORIDE 40 MEQ in DEXTROSE 5% IN WATER 500 ML IV PRN (08:24)
[2020-02-21] MEDS ORDERED: POTASSIUM CHLORIDE 20 MEQ TABLET PO PRN ×2 (08:28→08:33)
[2020-02-21] MEDS ORDERED: MAGNESIUM SULFATE 2 GM/50 ML BAG IV PRN (08:35)
[2020-02-21 08:57] LABS: Hematocrit 33.9 % (41.0-55.0); Hemoglobin 11.7 g/dL (13.5-16.5); Mean Corpuscular HGB Conc 34.5 g/dL (31.0-36.0); Mean Platelet Volume 10.7 fL (7.4-10.4); Platelet Count 83 K/mcL (140-440); RBC 3.26 M/mcL (4.50-5.90); Red Cell Distribution Width 13.6 % (11.5-14.5); WBC 5.3 K/mcL (4.5-11.0)
[2020-02-21] MEDS: THIAMINE 100 MG in 0.9 % SODIUM CHLORIDE 50 ML IV SCH (08:58)
[2020-02-21] MEDS: ATORVASTATIN 40 MG TABLET PO SCH (08:59)
[2020-02-21] MEDS: HEPARIN 5,000 UNIT/ML VIAL SQ SCH ×2 (08:59→20:13)
[2020-02-21] MEDS: MULTIVIT,THER IRON,CA,FA & MIN 1 TABLET PO SCH (08:59)
[2020-02-21] MEDS: FOLIC ACID 1 MG TABLET PO SCH (08:59)
[2020-02-21] MEDS: SERTRALINE 50 MG TABLET PO SCH (08:59)
[2020-02-21 09:51] LABS: Creatine Kinase 1297 U/L (24-195)
--- NOTE | 2020-02-21 09:53 | Nephrology Progress Note ---
SUBJECTIVE Subjective Patient information: Note initiated : 02/21/20 at 9:47 am Service Date, if different from initiated Date: [] Patient: Sindhu Delgado 69 y/o M admitted on 02/20/20 for Low BP, Not Eating/Drinking. Chief Complaint: [not eating and weakness] This patient was admitted yesterday after a least a week history of loss of appetite not eating or drinking much, acute renal failure, hyponatremia and hypokalemia with a anion gap positive metabolic acidosis. Previously he had hypertension requiring amlodipine, beta-xavier and RAASI therapy. reports that his blood pressures been on the low side for quite some time but they continued on the 3 drug regimen. He is also a daily consumer of alcohol up to "4 drinks" a day with a concomitant elevated MCV and thrombocytopenia. He received 3-1/2 L of fluids in the emergency room and required norepinephrine overnight to maintain his systolic blood pressure over 100. This morning he is feeling better and the norepinephrine has been weaned off. He is received additional IV fluids thiamine and multivitamins but had no signs or symptoms of acute Wernicke-Korsakoff syndrome. Today's labs are as follows: Laboratory Tests 02/21/20 02/21/20 05:07 05:07 WBC 5.3 Hgb 11.7 L Hct 33.9 L MCV 104.0 H Plt Count 83 L Sodium 134 Potassium 2.8 L* Chloride 93 L Carbon Dioxide 12 L Anion Gap 29.0 H BUN 35 H Creatinine 2.3 H GFR Calculation 28 Glucose 86 Uric Acid 11.2 H Calcium 7.5 L Phosphorus 2.5 Magnesium 1.9 GGT 333 H AST 143 H ALT 20 Alkaline Phosphatase 126 H Lactate Dehydrogenase 10 L Total Creatine Kinase 1297 H Albumin 2.9 L 02/20/20 02/20/20 02/20/20 17:00 17:00 17:00 VBG Lactic Acid Osmolality 297 Total Creatine Kinase 1967 NT-Pro-B Natriuret Pep 1596 Beta-Hydroxybutyrate Urine pH Ur Specific [place] Urine Protein Urine Glucose (UA) Urine Ketones Urine Occult Blood Urine Nitrate Urine Urobilinogen Ur Leukocyte Esterase Urine RBC Urine WBC Hyaline Casts Urine Eosinophils TNP Urine Myoglobin Pending Urine Osmolality 370 Ur Random Creatinine U Random Total Protein 158 Ur Random Sodium 17 Ur Random Potassium 39.0 Salicylates Ethylene Glycol pending Ethyl Alcohol 0.01 02/20/20 02/20/20 02/20/20 17:00 17:00 22:19 VBG Lactic Acid 0.7 Osmolality Total Creatine Kinase NT-Pro-B Natriuret Pep Beta-Hydroxybutyrate 6.72 H Urine pH 6.0 Ur Specific [place] 1.016 Urine Protein 100 A Urine Glucose (UA) Negative Urine Ketones 20 A Urine Occult Blood >=1.0 A Urine Nitrate Negative Urine Urobilinogen 4.0 A Ur Leukocyte Esterase Negative Urine RBC 15 H Urine WBC 2 Hyaline Casts 3 H Urine Eosinophils Urine Myoglobin Urine Osmolality Ur Random Creatinine 181.4 U Random Total Protein Ur Random Sodium Ur Random Potassium Salicylates Ethylene Glycol Ethyl Alcohol Osmolar GAP = 20 Constitutional Vitals: Vital Signs Temp Pulse Resp BP Pulse Ox 36.6 C 81 18 136/61 95 02/21/20 08:01 02/20/20 18:01 02/21/20 09:01 02/21/20 09:01 02/21/20 09:01 Period Temp Pulse Resp BP Sys/Lomeli Pulse Ox Last 24 Hr 36.4 C-37.3 C 63-86 13-28 60-142/37-120 87-100 Intake and Output 02/20/20 02/21/20 02/21/20 21:59 05:59 13:59 Intake Total 2166 2166 635 Output Total 509 1565 448 Balance 1657 601 187 Weight 119.777 kg Intake & Output: Intake & Output 02/20/20 02/21/20 02/21/20 21:59 05:59 13:59 Intake Total 2166 2166 635 Output Total 509 1565 448 Balance 1657 601 187 Weight 119.777 kg Intake: IV 2154 2166 635 Sodium Chloride 0.9% 1,000 ml @ 1000 Wide Open IV [facility] Rx#: [id number] Sodium Chloride 0.9% 250 ml @ 167 20 mls/hr IV .[id number] [facility] Rx#: [id number] Dextrose 5%-Ns IV Solution 1, 1000 000 ml @ 250 mls/hr IV .Q4H ONE Rx#:[id number] Lactated Ringers 1,000 ml @ 100 953 635 mls/hr IV .Q10H [facility] Rx#: [id number] Levophed 8 mg In Sodium 103 27 Chloride 0.9% 242 ml @ 10 MCG/ MIN 18.75 mls/hr IV Q14H [facility] Rx #:[id number] Potassium Chloride 10 Meq 1019 Magnesium Sulfate 16.24 Meq Infuvite Adult 10 ml In Sodium Chloride 0.9% 1,000 ml @ 250 mls/hr IV .Q4H5M [facility] Rx#: [id number] Vitamin B1 100 mg In Sodium 51 Chloride 0.9% 50 ml @ 50 mls/hr IV ONCE ONE Rx#:[id number] Oral 12 Output: Urine Catheter Amount 509 1565 448 Other: Urine Appearance Clear Clear Cloudy Uretheral (Sanchez) Clear Clear Urine Color Dark Yellow Light Rosa Light Rosa Uretheral (Sanchez) Light Rosa Light Rosa Urine Odor Normal Normal Uretheral (Sanchez) Normal Stool Size Large Stool Color Brown Stool Consistency Liquid Watery # Bowel Movements 1 # of times incontinent of 1 Bowels General appearance: cooperative, disheveled and mild distress Head Head exam: Present atraumatic and normocephalic Eye Eye exam: Present EOMI and PERRL Additional comments: No LR paralysis ENT ENT exam: Present mucous membranes dry Neck Neck exam: Present full ROM and normal inspection; Absent meningismus Respiratory Respiratory exam: Present rhonchi; Absent wheezes Cardiovascular Cardiovascular exam: Present normal rate and rhythm, +S1 and +S2; Absent gallop and rubs GI/Abdominal GI/Abdominal exam: Present soft and diminished bowel sounds; Absent bruit and guarding Extremities Exam Extremities exam: Present full ROM and pedal edema (trace); Absent calf tenderness Back Exam Back exam: Absent CVA tenderness (L) and CVA tenderness (R) Neurological Exam Neurological exam: Present alert, CN II-XII intact and oriented X3 Additional comments: Improved versus yesterday Psychiatric Psychiatric exam: Present normal affect; Absent manic Additional comments: No signs of impending DT's Skin Skin exam: Present abrasion and dry Additional comments: Scattered ecchymosis A/P Assessment and plan (1) Acute renal failure (ARF): Assessment and plan: Easiest explanation would be dehydration in the setting of hypotension and continued NOLA inhibitor administration Unfortunately that will not explain the bulk of the electrolyte abnormalities nor will I did explain the metabolic acidosis Rhabdomyolysis is present but seems to be low-grade I suspect part of what is going on is alcoholic ketoacidosis Must rule out ethylene glycol intoxication given the large metabolic acidosis We will need to calculate his serum osmolar gap, fractional excretion of sodium, look for granular casts as well as calcium oxalate crystals as soon as the urine becomes available. Continue hydration with adventism of systolic blood pressure around 100 Status: Acute Comment: Last creatinine in 2019 was normal Qualifiers: Acute renal failure type: unspecified Qualified Code(s): N17.9 - Acute kidney failure, unspecified (2) High anion gap metabolic acidosis: Assessment and plan: Alcoholic ketoacidosis is my #1 choice With or without a component of lactic acidosis Need to rule out any need to rule out any methanol or ethylene glycol contributing though he denies drinking either of these Status: Acute (3) Alcoholism, chronic: Status: Acute Comment: reports 4-5 alcoholic beverages daily and he had a detectable alcohol level of 0.01 on admission. He has other hematologic signs of chronic alcohol use including high MCV and low platelet count (4) Hypotension: Status: Acute Comment: says his blood pressures been running running on the low side recently so could be due to his medications Qualifiers: Hypotension type: hypotension due to drug Qualified Code(s): I95.2 - Hypotension due to drugs (5) Electrolyte abnormality: Status: Acute Comment: Suspect alcohol related electrolyte abnormalities as acute renal failure from just dehydration and NOLA inhibitors tends to have a high potassium not low (6) Rhabdomyolysis: Assessment and plan: Suspect this is alcohol induced rhabdomyolysis need to check his phosphorus Status: Acute Comment: Suspect alcohol related Qualifiers: Encounter type: subsequent encounter Narrative A/P Narrative: 1. So far, nothing to argue against alcoholic ketoacidosis with anion gap positive acidosis (elevated blood and urine ketones) and no elevation in lactate or salicilate. Had this been ethylene glycol intoxication, his GFR and acidosis would be worsening as the EtOH level declines allowing ADH to freely concert ethylene glycol to glycolic acid. 2. BP improved with volume 3. GFR improving with volume, better hemodynamics and as lisinopril wears off. 4. Replace KCl 5. Acidosis will self correct as ketone bodies are metabolized by his liver using up H+ and correcting acidosis without the rebound alkalosis and worsening K balance. 6. Monitor for refeeding hypokalemia, hypophosphatemia and hypomagnesemia seen in re-feed alcoholic patients 7. Continue thiamine and EtOH MVTs 8. Serial labs. Time Spent With Patient Time: Total time spent is greater than 50% in coordination of care (as documented) at patient's floor/unit and/or counseling patient: Total time spent with greater than 50% in coordination of care (as documented) at patient's floor/unit and/or counseling patient:: Greater than 35 minutes
--- NOTE | 2020-02-21 12:48 | Ultrasound Report ---
History: Acute renal failure, evaluate for hydronephrosis FINDINGS: Right kidney measures 6.6 x 7.3 x 14.6 cm and the left measures 6.3 x 6.5 x 14.0 cm. The cortex is normal in thickness and echogenicity bilaterally. There is no hydronephrosis. No cyst, mass or calculus are present. The urinary bladder is empty, except for a Sanchez catheter. Therefore we are unable to document flow of urine through either ureter into the bladder. IMPRESSION: Anatomically normal kidneys without evidence of obstruction Interpreted and Authenticated by: Tan Varghese 02/21/20
[2020-02-21 14:57] LABS: ALT/SGPT 20 U/L (<40); AST/SGOT 143 U/L (<40); Albumin 2.9 gm/dL (3.2-5.2); Albumin/Globulin Ratio 0 (1.0-2.3); Alkaline Phosphatase 126 U/L (39-117); Bilirubin,Direct < 0.2 mg/dL (<0.3); Bilirubin,Total 1.3 mg/dL (0.1-1.0); Blood Urea Nitrogen 35 mg/dL (8-23); Calcium 7.5 mg/dL (8.6-10.4); Carbon Dioxide 12 mmol/L (22-30); Chloride 93 mmol/L (96-108); Globulin 5.2 gm/dL (2.2-3.7); Glomerular Filtration Rate 28; Glucose 86 mg/dL (70-105); Lactate Dehydrogenase 10 U/L (135-225); Phosphorous 2.5 mg/dL (2.5-4.5); Triglycerides 332 mg/dL (<150); Uric Acid 11.2 mg/dL (2.5-8.0)
[2020-02-21] MEDS: FAMOTIDINE/PF 20 MG/2 ML VIAL IV SCH (20:13)
[2020-02-22] MEDS: METOPROLOL TARTRATE 5 MG/5 ML VIAL IV SCH ×3 (00:40→16:00)
[2020-02-22] MEDS ORDERED: METOPROLOL TARTRATE 5 MG/5 ML VIAL IV ONE ×5 (00:42→03:03)
[2020-02-22] MEDS ORDERED: DILTIAZEM 125 MG/25 ML VIAL IV ONE (01:15)
[2020-02-22] MEDS: DILTIAZEM 125 MG in DEXTROSE 5% IN WATER 100 ML IV SCH ×2 (01:27→13:53)
[2020-02-22] MEDS: 0.9 % SODIUM CHLORIDE 250 ML IV SCH ×3 (01:29→13:53)
[2020-02-22] MEDS: LACTATED RINGERS 1,000 ML IV SCH (01:31)
[2020-02-22] MEDS: 0.9 % SODIUM CHLORIDE 10 ML SYRINGE IV SCH ×3 (05:22→22:34)
[2020-02-22] MEDS: LORazepam 2 MG/ML VIAL IV PRN ×2 (06:32→21:08)
[2020-02-22] MEDS: NOREPINEPHRINE BITARTRATE 8 MG in 0.9 % SODIUM CHLORIDE 242 ML IV SCH ×2 (06:46→23:50)
[2020-02-22] MEDS ORDERED: SCOPOLAMINE 1 PATCH PATCH TOPICAL SCH (07:15)
--- NOTE | 2020-02-22 07:21 | Internal Med Progress Note ---
SUBJECTIVE Subjective Patient information: Note initiated : 02/22/20 at 7:11 am Service Date, if different from initiated Date: [] Patient: Sindhu Delgado a 69 y/o M admitted on 02/20/20 for Low BP, Not Eating/Drinking. Chief Complaint: [] Interval history: History of present illness: Mr. Delgado is a 69 year old M Presents the ED with weakness. History obtained from the patient as well as patient's . Patient is quite sedentary, sitting in chair most of the day, and does not eat very much typically a meal per day per his . About 5 days ago with adequate down their dog who is emotionally attached to and is quite devastating for him. That time he lost interest in eating. He has continued to drink for which he drinks 3-4 drinks of liquor per day although says he did have is much yesterday. Per the he acted a little confused this morning. Did have one episode of diarrhea in the ED. Denies chest pain or shortness of breath or abdominal pain. Denies headache fevers. Per he is always slightly tremulous but he seemed more shaky this morning. She called EMS who arrived and found that he was hypotensive and he had hypoglycemia and was given fluids and glucose. ED he was given almost 3 L of IV fluid. His says he looks better than when he arrived. 02/20 Patient states he is feeling better. No overnight issues. However nurse does state that he has lots of oral secretions and appears that he has a hard time clearing them at times. Will get speech therapy evaluating. Vasopressors off last night. Awaiting follow-up labs. Good urine output. 02/21 Patient seem to have gone and alcohol withdrawal overnight shift. Also went into A. fib RVR and started on diltiazem drip. Additionally patient started the setting and noted to have thick secretions seen like at our time clearing secretions. Patient placed on BiPAP. Patient seems groggy but does awaken and answer questions. Review of Systems: denies headache/fever/chills/nausea/vomiting/chest or abdominal pain/cough/dyspnea/diarrhea. Otherwise see above. Constitutional Vitals: Vital Signs Temp Pulse Resp BP Pulse Ox 98.1 F 112 H 17 125/68 97 02/22/20 04:01 02/22/20 06:21 02/22/20 07:01 02/22/20 07:01 02/22/20 07:01 Period Temp Pulse Resp BP Sys/Lomeli Pulse Ox Last 24 Hr 97.9 F-99.2 F 93-112 12-30 87-149/55-134 82-100 Intake and Output 02/21/20 02/22/20 02/22/20 21:59 05:59 13:59 Intake Total 300 892 Output Total 2094 2200 155 Balance -1795 -1308 -155 Weight 117.679 kg Intake & Output: Intake & Output 02/21/20 02/22/20 02/22/20 21:59 05:59 13:59 Intake Total 300 892 Output Total 5 2200 155 Balance -1795 -1308 -155 Weight 117.679 kg Intake: IV 892 Cardizem 125 mg In Dextrose 5% 8 in Water 100 ml @ 5 MG/HR 5 mls /hr IV Q12H [facility] Rx#:[id number] Lactated Ringers 1,000 ml @ 75 884 mls/hr IV .[id number] [facility] Rx#: [id number] Oral 300 Output: Urine Catheter Amount 2094 2199 155 Other: Meal Dinner Percent of Meal Consumed 50% Feeding Ability Independent Urine Appearance Clear Clear Clear Uretheral (Sanchez) Clear Clear Urine Color Bright Yellow Light Rosa Dark Rosa Blood Tinged Uretheral (Sanchez) Light Rosa Light Rosa Blood Tinged Urine Odor Strong Uretheral (Sanchez) Normal Stool Size Moderate Moderate Stool Color Brown Brown Stool Consistency Liquid Liquid Watery Watery # Bowel Movements 1 # of times incontinent of 1 Bowels Exam: General: Awake, No acute Distress Eyes/N/T: EOMI, Head/Neck: neck supple, CV: irreg irreg, No murmurs, Pulm: Diminished b/l, no wheezing Abd: soft, nontender, +BS x4 Ext: no clubbing/cyanosis, b/l LE edema improved with BERYL's Neuro: Alert, no focal deficits, moves all extremities, Skin: warm/dry OBJ DATA Labs CBC & Chem 7: 02/21/20 05:07 02/21/20 05:07 Labs: Abnormal Lab Results 02/21/20 02/21/20 02/20/20 05:07 05:07 22:19 RBC 3.26 L Hgb 11.7 L Hct 33.9 L MCV 104.0 H MCH 35.9 H Plt Count 83 L MPV 10.7 H Neut % (Auto) Lymph % (Auto) Lymph # (Auto) Sodium Potassium 2.8 L* 3.0 L Chloride 93 L 93 L Carbon Dioxide 12 L 11 L Anion Gap 29.0 H 29.0 H BUN 35 H 38 H Creatinine 2.3 H 2.6 H Uric Acid 11.2 H Calcium 7.5 L 7.5 L Total Bilirubin 1.3 H GGT 333 H AST 143 H ALT Alkaline Phosphatase 126 H Lactate Dehydrogenase 10 L Total Creatine Kinase 1297 H NT-Pro-B Natriuret Pep Total Protein 5.4 L Albumin 2.9 L 2.9 L Globulin 5.2 H Albumin/Globulin Ratio 0 L Prealbumin Triglycerides 332 H Beta-Hydroxybutyrate Urine Protein Urine Ketones Urine Occult Blood Urine Urobilinogen Urine RBC Hyaline Casts Urine Mucus Ethyl Alcohol 02/20/20 02/20/20 02/20/20 22:19 17:00 10:17 RBC Hgb Hct MCV MCH Plt Count MPV Neut % (Auto) Lymph % (Auto) Lymph # (Auto) Sodium Potassium Chloride Carbon Dioxide Anion Gap BUN Creatinine Uric Acid Calcium Total Bilirubin GGT AST ALT Alkaline Phosphatase Lactate Dehydrogenase Total Creatine Kinase NT-Pro-B Natriuret Pep Total Protein Albumin Globulin Albumin/Globulin Ratio Prealbumin 12.4 L Triglycerides Beta-Hydroxybutyrate 6.72 H Urine Protein 100 A Urine Ketones 20 A Urine Occult Blood >=1.0 A Urine Urobilinogen 4.0 A Urine RBC 15 H Hyaline Casts 3 H Urine Mucus Few A Ethyl Alcohol 02/20/20 02/20/20 02/20/20 10:17 10:17 10:17 RBC Hgb Hct MCV MCH Plt Count MPV Neut % (Auto) Lymph % (Auto) Lymph # (Auto) Sodium 129 L Potassium Chloride 83 L Carbon Dioxide 11 L Anion Gap 35.0 H BUN 44 H Creatinine 3.6 H Uric Acid Calcium 8.0 L Total Bilirubin 1.4 H GGT AST 167 H ALT 107 H Alkaline Phosphatase 130 H Lactate Dehydrogenase Total Creatine Kinase 1967 H NT-Pro-B Natriuret Pep 1596.0 H Total Protein Albumin Globulin Albumin/Globulin Ratio Prealbumin Triglycerides Beta-Hydroxybutyrate Urine Protein Urine Ketones Urine Occult Blood Urine Urobilinogen Urine RBC Hyaline Casts Urine Mucus Ethyl Alcohol 0.010 H 02/20/20 10:17 RBC 3.58 L Hgb 13.0 L Hct 37.7 L MCV 105.3 H MCH 36.3 H Plt Count 102 L MPV Neut % (Auto) 87.8 H Lymph % (Auto) 3.5 L Lymph # (Auto) 0.30 L Sodium Potassium Chloride Carbon Dioxide Anion Gap BUN Creatinine Uric Acid Calcium Total Bilirubin GGT AST ALT Alkaline Phosphatase Lactate Dehydrogenase Total Creatine Kinase NT-Pro-B Natriuret Pep Total Protein Albumin Globulin Albumin/Globulin Ratio Prealbumin Triglycerides Beta-Hydroxybutyrate Urine Protein Urine Ketones Urine Occult Blood Urine Urobilinogen Urine RBC Hyaline Casts Urine Mucus Ethyl Alcohol Meds: Medications Acetaminophen (Tylenol) 650 mg PO Q4-6HP PRN PRN Reason: PAIN/FEVER > 101 Albuterol/Ipratropium (Duoneb) 3 ml NEB Q4HRT PRN PRN Reason: dysnpea Last Admin: 02/22/20 02:26 Dose: 3 ml Documented by: Atorvastatin Calcium (Lipitor) 40 mg PO QDAY [facility] Last Admin: 02/21/20 08:59 Dose: 40 mg Documented by: Chlordiazepoxide HCl (Librium) 25 mg PO Q4HP PRN PRN Reason: Alcohol Withdrawal Diagnostic Test (Pha) (Accu-Chek) 1 each FS Q4H [facility] Last Admin: 02/22/20 05:22 Dose: 1 each Documented by: Famotidine (Pepcid) 20 mg IV HS [facility] Last Admin: 02/21/20 20:13 Dose: 20 mg Documented by: Folic Acid (Folic Acid) 1 mg PO DAILY [facility] Last Admin: 02/21/20 08:59 Dose: 1 mg Documented by: Heparin Sodium (Porcine) (Heparin) 5,000 unit SQ Q12 [facility] Last Admin: 02/21/20 20:13 Dose: 5,000 unit Documented by: Norepinephrine Bitartrate 8 mg (/ Sodium Chloride) 250 mls @ 18.75 mls/hr IV Q14H [facility]; Protocol Last Admin: 02/22/20 06:46 Dose: Not Given Documented by: Thiamine HCl 100 mg/ Sodium (Chloride) 51 mls @ 50 mls/hr IV DAILY [facility] Last Infusion: 02/21/20 10:24 Dose: Infused Documented by: Sodium Chloride (Sodium Chloride 0.9%) 250 mls @ 20 mls/hr IV .[id number] [facility] Last Admin: 02/22/20 05:23 Dose: Not Given Documented by: Lactated Ringer's (Lactated Ringers) 1,000 mls @ 75 mls/hr IV .[id number] [facility] Last Admin: 02/22/20 01:31 Dose: 75 mls/hr Documented by: Potassium Chloride 40 meq/ (Dextrose) 520 mls @ 130 mls/hr IV PRN PRN PRN Reason: potassium less than 3.0 Magnesium Sulfate (Magnesium Sulfate) 2 gm in 50 mls @ 25 mls/hr IV PRN PRN PRN Reason: Magnesium < Or = 1.6 Diltiazem HCl 125 mg/ Dextrose 125 mls @ 5 mls/hr IV Q12H [facility]; Protocol Last Titration: 02/22/20 02:30 Dose: 15 mg/hr, 15 mls/hr Documented by: Sodium Chloride (Sodium Chloride 0.9%) 250 mls @ 20 mls/hr IV .[id number] [facility] Last Admin: 02/22/20 01:29 Dose: 20 mls/hr Documented by: Iron Carb/Multivit/Fire Equipment Inspector/Folic Acid (Multivitamin W/Minerals) 1 tab PO DAILY [facility] Last Admin: 02/21/20 08:59 Dose: 1 tab Documented by: Lorazepam (Ativan) 0 mg IV Q4HP PRN; Protocol PRN Reason: Alcohol Withdrawal Last Admin: 02/22/20 06:32 Dose: 2 mg Documented by: Ondansetron HCl (Zofran) 4 mg IV Q4-6HP PRN PRN Reason: Nausea And Vomiting Potassium Chloride (Kdur) 40 meq PO UD PRN PRN Reason: Potassium 3-3.5 Last Admin: 02/21/20 15:02 Dose: 40 meq Documented by: Potassium Chloride (Kdur) 40 meq PO UD PRN PRN Reason: Potassium less than 3.0 Sertraline HCl (Zoloft) 50 mg PO QDAY [facility] Last Admin: 02/21/20 08:59 Dose: 50 mg Documented by: Sodium Chloride (Saline Flush) 10 ml IV Q8 [facility] Last Admin: 02/22/20 05:22 Dose: 10 ml Documented by: A/P Narrative A/P Narrative: A: *Hypovolemic shock: poor oral intake + BP meds -off levophed *SULLY on likely CKD II: prerenal + possible ATN from above + ACEI, doubt from rhabdo -improving. no granular casts, hyaline present *AG Met acidosis: 2/2 above + starvation/alcohol ketosis *Acute hypoxic respite failure: 2/2 etoh w/d, thick oral secretions with diffi culty clearing *Aspiration: pt likely aspirating on his excessive mucus production. scopolomine patch *ETOH abuse with W/D: *thrombocytopenia: 2/2 etoh *Hypoglycemia: 2/2 poor diet + chronic etoh *Volume Depletion: resolved *Hyponatremia/chloride: 2/2 beer potomania. improving *hypomag/phos/potassium: *Elevated CPK: 2/2 immobilization/etoh -no granular *Transaminitis, mild: 2/2 hypotension/?etoh component *HTN/HLD: *GERD: *FTT/Malnutrition: 2/2 chronic alcoholism + recent life event. prealbumin 12 *Afib RVR: started last night. likely precipitated by etoh w/d and acute illness/metabolic derangements -chadsvasc=2 *ICU Delerium: given chronic alcoholism I suspect there is some underlying c erebral damage *Poor long-term prognosis in chronic etoh P: -awaiting AM labs -wean off Dilt gtt to PO BB, echo pending, -monitor UOP, i/o -CIWA, prn Benzo, MVI/Thiamine/Folate -monitor BG -f/u CPK -Electrolyte replacement -Nephrology following, -hold home ARB/CCB -cont home SSRI -pt/ot -ST -ppx: heparin/home ppi DNR Time Spent With Patient Time: Total time spent is greater than 50% in coordination of care (as grzegorz pickering) at patient's floor/unit and/or counseling patient: QUALITY VTE Deep Vein Thrombosis/Pulmonary Embolism Present on Admission: No
[2020-02-22 07:26] LABS: Beta Hydroxybutyrate 3.64 mmol/L (<0.27); Phosphorous 0.8 mg/dL (2.5-4.5)
[2020-02-22] MEDS ORDERED: LACTATED RINGERS 1,000 ML IV SCH (07:30)
--- NOTE | 2020-02-22 08:26 | Nephrology Progress Note ---
SUBJECTIVE Subjective Patient information: Note initiated : 02/22/20 at 8:24 am Service Date, if different from initiated Date: [] Patient: Sindhu Delgado 69 y/o M admitted on 02/20/20 for Low BP, Not Eating/Drinking. Chief Complaint: [Weakness loss of appetite] Patient was seen and evaluated on morning rounds. He is resting comfortably on BiPAP 02/19. He still has peripheral edema with BERYL hose. He is on 15 mg/h of IV diltiazem for A. fib with RVR Lactated Ringer's at 75 cc an hour. RUPESH's have been negative for the past 24 hours which I find hard to believe Chest x-ray February 22, 2020 Laboratory Tests 02/22/20 05:06 Phosphorus 0.8 L Magnesium 1.3 L Beta-Hydroxybutyrate 3.64 H Slowly improving ketoacidosis, will add D5 to his IV fluids to accelerate ketone body metabolism. As feared he is developed significant hypophosphatemia in the past 24 hours and will treat with IV K-Phos total of 80 mEq today. Potassium is not back but I am sure that will be low as well so in addition I would give him 1 potassium chloride rider for total of 120 mEq of potassium during the course of the day. Constitutional Vitals: Vital Signs Temp Pulse Resp BP Pulse Ox 36.7 C 112 H 23 H 99/72 96 02/22/20 08:01 02/22/20 06:21 02/22/20 08:01 02/22/20 08:01 02/22/20 08:01 Period Temp Pulse Resp BP Sys/Lomeli Pulse Ox Last 24 Hr 36.7 C-37.3 C 93-112 12-30 87-149/55-134 82-100 Intake and Output 02/21/20 02/22/20 02/22/20 21:59 05:59 13:59 Intake Total 300 892 Output Total 20940 310 Balance -1795 -1308 -310 Weight 117.679 kg Intake & Output: Intake & Output 02/21/20 02/22/20 02/22/20 21:59 05:59 13:59 Intake Total 300 892 Output Total 20940 310 Balance -1795 -1308 -310 Weight 117.679 kg Intake: IV 892 Cardizem 125 mg In Dextrose 5% 8 in Water 100 ml @ 5 MG/HR 5 mls /hr IV Q12H [facility] Rx#:[id number] Lactated Ringers 1,000 ml @ 75 884 mls/hr IV .[id number] [facility] Rx#: [id number] Oral 300 Output: Urine Catheter Amount 2094 2199 310 Other: Meal Dinner Percent of Meal Consumed 50% Feeding Ability Independent Urine Appearance Clear Clear Clear Uretheral (Sanchez) Clear Clear Urine Color Bright Yellow Light Rosa Dark Rosa Blood Tinged Uretheral (Sanchez) Light Rosa Light Rosa Blood Tinged Urine Odor Strong Normal Uretheral (Sanchez) Normal Stool Size Moderate Moderate Stool Color Brown Brown Stool Consistency Liquid Liquid Watery Watery # Bowel Movements 1 # of times incontinent of 1 Bowels Physical Exam: General appearance: Sleeping, on BiPAP, diltiazem drip, disheveled and no distress Head exam: Present atraumatic and normocephalic Eye exam: Present EOMI and PERRL Additional comments: No LR paralysis ENT exam: Present mucous membranes dry Neck exam: Present full ROM and normal inspection; Absent meningismus Respiratory exam: Present rhonchi; Absent wheezes Cardiovascular exam: Present normal rate and irregularly irregular rhythm, +S1 and +S2; Absent gallop and rubs GI/Abdominal exam: Present soft and diminished bowel sounds; Absent bruit and guarding Extremities exam: Present full ROM and pedal edema (trace); Absent calf tenderness Back exam: Absent CVA tenderness (L) and CVA tenderness (R) Neurological exam: Present alert, CN II-XII intact and oriented X3 Additional comments: Improved versus yesterday Psychiatric exam: Present normal affect; Absent manic Additional comments: No signs of impending DT's Skin exam: Present abrasion and dry Additional comments: Scattered ecchymosis A/P Narrative A/P Narrative: 1) Acute renal failure (ARF): Assessment and plan: Easiest explanation would be dehydration in the setting of hypotension and continued NOLA inhibitor administration Unfortunately that will not explain the bulk of the electrolyte abnormalities nor will I did explain the metabolic acidosis Rhabdomyolysis is present but seems to be low-grade I suspect part of what is going on is alcoholic ketoacidosis Must rule out ethylene glycol intoxication given the large metabolic acidosis Calculate his serum osmolar gap was 2X nl at 20, fractional excretion of sodium, look for granular casts as well as calcium oxalate crystals -none reported Continue hydration with yazdanism of systolic blood pressure around 100 (2) High anion gap metabolic acidosis: Assessment and plan: Alcoholic ketoacidosis is my #1 choice Without a component of lactic acidosis Need to rule out any need to rule out any methanol or ethylene glycol contributing though he denies drinking either of these (3) Alcoholism, chronic: (4) Hypotension: (5) Electrolyte abnormality: (6) Rhabdomyolysis: Assessment and plan: Suspect this is alcohol induced rhabdomyolysis need to check his phosphorus -refeeding hypophosphatemia is present Potassium phosphate 80 mmol ordered for today (7) A. fib with RVR on diltiazem Sir Sg Preston would predict alcoholic cardiomyopathy echocardiogram pending Replace electrolytes Diltiazem blood pressure permitting Time Spent With Patient Time: Total time spent is greater than 50% in coordination of care (as docume nted) at patient's floor/unit and/or counseling patient: Total time spent with greater than 50% in coordination of care (as documented) at patient's floor/unit and/or counseling patient:: Greater than 35 minutes
[2020-02-22] MEDS ORDERED: MAGNESIUM SULFATE 2 GM/50 ML BAG IV PRN (08:34)
[2020-02-22] MEDS ORDERED: METOPROLOL TARTRATE 25 MG TABLET PO SCH ×2 (09:00→21:00)
[2020-02-22] MEDS: ATORVASTATIN 40 MG TABLET PO SCH (09:00)
[2020-02-22] MEDS ORDERED: NEUTRA PHOS 1 PACKET PO ONE (09:00)
[2020-02-22] MEDS: chlordiazePOXIDE 25 MG CAPSULE PO PRN ×2 (09:00→20:08)
[2020-02-22] MEDS: FOLIC ACID 1 MG TABLET PO SCH (09:00)
[2020-02-22] MEDS: HEPARIN 5,000 UNIT/ML VIAL SQ SCH ×2 (09:00→20:08)
[2020-02-22] MEDS: SERTRALINE 50 MG TABLET PO SCH (09:00)
[2020-02-22] MEDS: MULTIVIT,THER IRON,CA,FA & MIN 1 TABLET PO SCH (09:00)
[2020-02-22] MEDS: THIAMINE 100 MG in 0.9 % SODIUM CHLORIDE 50 ML IV SCH (09:01)
[2020-02-22] MEDS: DEXTROSE 5%-LR 1,000 ML IV SCH (09:11)
[2020-02-22] MEDS: POTASSIUM PHOSPHATE 40 MEQ in DEXTROSE 5% IN WATER 500 ML IV SCH ×2 (09:14→20:11)
[2020-02-22 09:16] LABS: ALT/SGPT 101 U/L (<40); AST/SGOT 120 U/L (<40); Albumin 2.9 gm/dL (3.2-5.2); Albumin/Globulin Ratio 1.1 (1.0-2.3); Alkaline Phosphatase 146 U/L (39-117); Bilirubin,Direct 0.8 mg/dL (<0.3); Bilirubin,Total 1.1 mg/dL (0.1-1.0); Blood Urea Nitrogen 20 mg/dL (8-23); Calcium 8.2 mg/dL (8.6-10.4); Carbon Dioxide 21 mmol/L (22-30); Chloride 97 mmol/L (96-108); Globulin 2.6 gm/dL (2.2-3.7); Glomerular Filtration Rate 51; Glucose 119 mg/dL (70-105); Lactate Dehydrogenase 1130 U/L (135-225); Phosphorous 0.9 mg/dL (2.5-4.5); Triglycerides 132 mg/dL (<150); Uric Acid 10.8 mg/dL (2.5-8.0)
[2020-02-22 09:16] LABS: POC Blood Urea Nitrogen 18 mg/dL (6-20); POC CO2 22 mmol/L (22-30); POC Chloride 97 mEq/L (96-108); POC Creatinine 1.2 mg/dL (0.6-1.2); POC Glucose, Random 128 mg/dL (70-105); POC Hematocrit 38 % (41-55); POC Potassium 2.5 mEql/L (3.3-5.1); POC Sodium 139 mEq/L (133-145)
--- NOTE | 2020-02-22 09:24 | XRay Report ---
HISTORY: Hypertension, possible aspiration FINDINGS: There is an ill-defined opacity around the left central and lower hilum. The remainder of the lung pagan are clear and normally expanded. The heart size is normal. Aorta is mildly tortuous. Comparison with the prior exam from 02/20/20 shows the vague opacity around the left hilum is new. IMPRESSION: Small left perihilar infiltrate which could be pneumonia or aspiration Interpreted and Authenticated by: Tan Varghese 02/22/20
[2020-02-22] MEDS ORDERED: MAGNESIUM SULFATE 2 GM/50 ML BAG IV ONE (13:00)
[2020-02-22] MEDS ORDERED: POTASSIUM CHLORIDE 40 MEQ in DEXTROSE 5% IN WATER 500 ML IV ONE (14:00)
[2020-02-22] MEDS ORDERED: METOPROLOL TARTRATE 25 MG TABLET PO ONE (15:15)
[2020-02-22] MEDS ORDERED: METOPROLOL TARTRATE 5 MG/5 ML VIAL IV PRN ×2 (15:56→15:59)
[2020-02-22] MEDS: FAMOTIDINE/PF 20 MG/2 ML VIAL IV SCH (20:08)
[2020-02-22] MEDS: METOPROLOL TARTRATE 5 MG/5 ML VIAL IV PRN (22:35)
[2020-02-23] MEDS: DILTIAZEM 125 MG in DEXTROSE 5% IN WATER 100 ML IV SCH (03:30)
[2020-02-23] MEDS: 0.9 % SODIUM CHLORIDE 250 ML IV SCH (03:30)
[2020-02-23] MEDS: DEXTROSE 5%-LR 1,000 ML IV SCH (04:37)
[2020-02-23] MEDS: METOPROLOL TARTRATE 5 MG/5 ML VIAL IV PRN ×5 (05:07→17:19)
[2020-02-23] MEDS: 0.9 % SODIUM CHLORIDE 10 ML SYRINGE IV SCH ×3 (05:39→22:48)
[2020-02-23 06:39] LABS: Basophils # (Auto) 0.02 K/mcL (0.00-0.20); Basophils % (Auto) 0.2 % (0.0-2.0); Eosinophils # (Auto) 0.08 K/mcL (0.00-0.70); Eosinophils % (Auto) 0.9 % (0.0-7.0); Hematocrit 33.3 % (41.0-55.0); Hemoglobin 11.8 g/dL (13.5-16.5); Lymphocytes # (Auto) 0.71 K/mcL (1.50-4.80); Lymphocytes % (Auto) 8.4 % (15.0-49.0); Mean Cell Volume 100.6 fL (80.0-100.0); Mean Corpuscular HGB Conc 35.4 g/dL (31.0-36.0); Mean Platelet Volume 10.3 fL (7.4-10.4); Monocytes # (Auto) 1.11 K/mcL (0.10-0.90); Monocytes % (Auto) 13.1 % (1.0-12.0); Neutrophils % (Auto) 77.4 % (38.0-78.0); Platelet Count 109 K/mcL (140-440); RBC 3.31 M/mcL (4.50-5.90); Red Cell Distribution Width 13.6 % (11.5-14.5); WBC 8.5 K/mcL (4.5-11.0)
[2020-02-23] MEDS: ATORVASTATIN 40 MG TABLET PO SCH (07:50)
[2020-02-23] MEDS: MULTIVIT,THER IRON,CA,FA & MIN 1 TABLET PO SCH (07:50)
[2020-02-23] MEDS: FOLIC ACID 1 MG TABLET PO SCH (07:50)
[2020-02-23] MEDS: METOPROLOL TARTRATE 25 MG TABLET PO SCH ×2 (07:50→21:06)
[2020-02-23] MEDS: SERTRALINE 50 MG TABLET PO SCH (07:50)
[2020-02-23] MEDS: chlordiazePOXIDE 25 MG CAPSULE PO PRN (08:26)
[2020-02-23] MEDS ORDERED: THIAMINE 100 MG in 0.9 % SODIUM CHLORIDE 50 ML IV SCH (09:00)
[2020-02-23 09:56] LABS: ALT/SGPT 104 U/L (<40); AST/SGOT 110 U/L (<40); Albumin 2.7 gm/dL (3.2-5.2); Albumin/Globulin Ratio 0.9 (1.0-2.3); Alkaline Phosphatase 162 U/L (39-117); Bilirubin,Direct 0.8 mg/dL (<0.3); Bilirubin,Total 1.2 mg/dL (0.1-1.0); Blood Urea Nitrogen 12 mg/dL (8-23); Calcium 8.2 mg/dL (8.6-10.4); Carbon Dioxide 28 mmol/L (22-30); Chloride 97 mmol/L (96-108); Globulin 2.9 gm/dL (2.2-3.7); Glomerular Filtration Rate 61; Glucose 137 mg/dL (70-105); Lactate Dehydrogenase 1096 U/L (135-225); Phosphorous 2.6 mg/dL (2.5-4.5); Triglycerides 128 mg/dL (<150); Uric Acid 8.9 mg/dL (2.5-8.0)
[2020-02-23] MEDS ORDERED: ESMOLOL 2,500 MG in PREMIX 1 BAG IV SCH (10:30)
[2020-02-23] MEDS ORDERED: 0.9 % SODIUM CHLORIDE 250 ML IV SCH (10:30)
[2020-02-23] MEDS ORDERED: 0.9 % SODIUM CHLORIDE 1,000 ML BAG IV SCH (10:30)
[2020-02-23] MEDS ORDERED: MAGNESIUM SULFATE 8.12 MEQ in DEXTROSE 5% IN WATER 50 ML IV ONE (11:00)
[2020-02-23] MEDS ORDERED: 0.9 % SODIUM CHLORIDE 200 ML IV ONE (11:00)
[2020-02-23] MEDS: HEPARIN 5,000 UNIT/ML VIAL SQ SCH ×2 (11:51→21:08)
[2020-02-23] MEDS: MIDODRINE 5 MG TABLET PO PRN ×2 (12:16→17:51)
--- NOTE | 2020-02-23 13:22 | Nephrology Progress Note ---
SUBJECTIVE Subjective Patient information: Note initiated : 02/23/20 at 1:15 pm Service Date, if different from initiated Date: [] Patient: Sindhu Delgado 69 y/o M admitted on 02/20/20 for Low BP, Not Eating/Drinking. Chief Complaint: [No appetite, dehydration, low blood pressure, acute renal failure] This patient has history of normal renal function and daily alcohol consumption (minimum of 4 drinks a day) who presented with at least a week history of no appetite minimal p.o. intake continued consumption of his antihypertensive medications and when examined in the emergency room was noted to have a metabolic acidosis, hypokalemia, and acute renal failure. He was treated as if he had alcoholic ketoacidosis and over the course of 3 days his acidosis and ketone bodies have abated, he has had the development of hypo-phosphatemia (refeeding) which has improved. His renal function has normalized. He remains hypokalemic and hypomagnesemic. Had some A. fib that required IV diltiazem, had appears that he has a decrement in his LVEF. Putting it altogether I did say this is chronic alcohol use, alcoholic cardiomyopathy, alcoholic ketoacidosis and multiple electrolyte abnormalities due to poor nutrition secondary to alcohol and refeeding hypophosphatemia and hypokalemia. From a renal and electrolyte point of view he is improving but he continues to have some obtundation but no impending DTs as far as I can tell. Labs for today are as follows 02/20/20 02/23/20 02/23/20 22:19 05:29 05:29 WBC 8.5 Hgb 11.8 L Hct 33.3 L MCV 100.6 H Plt Count 109 L VBG Lactic Acid 0.7 Sodium 136 Potassium 3.1 L Chloride 97 Carbon Dioxide 28 Anion Gap 11.0 BUN 12 Creatinine 1.2 GFR Calculation 61 Glucose 137 H Uric Acid 8.9 H Calcium 8.2 L Phosphorus 2.6 Magnesium 1.7 Total Bilirubin 1.2 H AST 110 H ALT 104 H Alkaline Phosphatase 162 H Lactate Dehydrogenase 1096 H Albumin 2.7 L Albumin/Globulin Ratio 0.9 L Salicylates Ethylene Glycol Ethyl Alcohol Laboratory Tests 02/20/20 02/20/20 02/20/20 10:17 10:17 10:17 NT-Pro-B Natriuret Pep 1596.0 H Salicylates <0.3 Ethylene Glycol Pending Ethyl Alcohol 0.010 H Constitutional Vitals: Vital Signs Temp Pulse Resp BP Pulse Ox 36.7 C 112 H 22 84/60 93 02/23/20 12:16 02/22/20 06:21 02/23/20 13:03 02/23/20 13:01 02/23/20 13:03 Period Temp Pulse Resp BP Sys/Lomeli Pulse Ox Last 24 Hr 36.2 C-36.7 C 16- 71-152/47-133 84-99 Intake and Output 02/22/20 02/23/20 02/23/20 21:59 05:59 13:59 Intake Total 1810 544 783.1852 Output Total 491 635 290 Balance 1319 446 481.7366 Weight 117.553 kg Intake & Output: Intake & Output 02/22/20 02/23/20 02/23/20 21:59 05:59 13:59 Intake Total 1810 489 090.2404 Output Total 491 635 290 Balance 1319 586 803.7860 Weight 117.553 kg Intake: Nourishment/Supplement quantity 240 (ml) IV 570 751 852.8487 Dextrose 5%-Lactated Ringers 1, 972 000 ml @ 50 mls/hr IV .Q20H [facility] Rx#:[id number] Brevibloc 2,500 mg In Premix 1 20 Bag @ 50 MCG/KG/MIN 35.266 mls/ hr IV .[id number] [facility] Rx#:[id number] Lactated Ringers 1,000 ml @ 75 0 mls/hr IV .[id number] [facility] Rx#: [id number] Levophed 8 mg In Sodium 0 Chloride 0.9% 242 ml @ 10 MCG/ MIN 18.75 mls/hr IV Q14H [facility] Rx #:[id number] Potassium Chloride 40 Meq In 520 Dextrose 5% in Water 500 ml @ 130 mls/hr IV ONCE ONE Rx#: [id number] Potassium Phosphate 40 Meq In 509.0909 Dextrose 5% in Water 500 ml @ 127.273 mls/hr IV Q12 [facility] Rx#: [id number] Oral 1000 Output: Urine Catheter Amount 491 635 290 Other: Nourishment/Supplement name nutritional shake Urine Appearance Clear Clear Clear Uretheral (Sanchez) Clear Clear Urine Color Light Rosa Light Rosa Light Rosa [place] Uretheral (Sanchez) Light Rosa Dark Yellow Blood Tinged Urine Odor Normal Normal Uretheral (Sanchez) Normal Stool Size Small Small Stool Color Brown Brown Stool Consistency Watery Watery # Bowel Movements 1 # of times incontinent of 1 Bowels Physical Exam: General appearance: Sleeping, facemask, esmolol drip, disheveled and minimal distress Head exam: Present atraumatic and normocephalic Eye exam: Present EOMI and PERRL Additional comments: No Lateral Rectus Muscle paralysis ENT exam: Present mucous membranes dry Neck exam: Present full ROM and normal inspection; Absent meningismus Respiratory exam: Present rhonchi; Absent wheezes Cardiovascular exam: Present normal rate and irregularly irregular rhythm, +S1 and +S2; Absent gallop and rubs GI/Abdominal exam: Present soft and diminished bowel sounds; Absent bruit and guarding Extremities exam: Present full ROM and pedal edema (trace); Absent calf tenderness Back exam: Absent CVA tenderness (L) and CVA tenderness (R) Neurological exam: Present alert, CN II-XII intact and oriented X3 Additional comments: Improved versus yesterday Psychiatric exam: Present normal affect; Absent manic Additional comments: No signs of impending DT's Skin exam: Present abrasion and dry Additional comments: Scattered ecchymosis General appearance: disheveled, mild distress and obese Exam: Arousable but sedated A/P Assessment and plan (1) Acute renal failure (ARF): Assessment and plan: Easiest explanation would be dehydration in the setting of hypotension and continued NOLA inhibitor administration Unfortunately that will not explain the bulk of the electrolyte abnormalities nor will I did explain the metabolic acidosis Rhabdomyolysis is present but seems to be low-grade I suspect part of what is going on is alcoholic ketoacidosis Must rule out ethylene glycol intoxication given the large metabolic acidosis We will need to calculate his serum osmolar gap, fractional excretion of sodium, look for granular casts as well as calcium oxalate crystals as soon as the urine becomes available. Continue hydration with mormon of systolic blood pressure around 100 Status: Acute Comment: Last creatinine in 2019 was normal Qualifiers: Acute renal failure type: unspecified Qualified Code(s): N17.9 - Acute kidney failure, unspecified (2) High anion gap metabolic acidosis: Assessment and plan: Alcoholic ketoacidosis is my #1 choice With or without a component of lactic acidosis Need to rule out any need to rule out any methanol or ethylene glycol contributing though he denies drinking either of these Status: Acute (3) Alcoholism, chronic: Status: Acute Comment: reports 4-5 alcoholic beverages daily and he had a detectable alcohol level of 0.01 on admission. He has other hematologic signs of chronic alcohol use including high MCV and low platelet count (4) Hypotension: Status: Acute Comment: says his blood pressures been running running on the low side recently so could be due to his medications Qualifiers: Hypotension type: hypotension due to drug Qualified Code(s): I95.2 - Hypotension due to drugs (5) Electrolyte abnormality: Status: Acute Comment: Suspect alcohol related electrolyte abnormalities as acute renal failure from just dehydration and NOLA inhibitors tends to have a high potassium not low (6) Rhabdomyolysis: Assessment and plan: Suspect this is alcohol induced rhabdomyolysis need to check his phosphorus Status: Acute Comment: Suspect alcohol related Qualifiers: Encounter type: subsequent encounter Narrative A/P Narrative: 1) Acute renal failure (ARF): IMPROVED Assessment and plan: Easiest explanation would be dehydration in the setting of hypotension and continued NOLA inhibitor administration Unfortunately that will not explain the bulk of the electrolyte abnormalities nor will I did explain the metabolic acidosis Rhabdomyolysis is present but seems to be low-grade I suspect part of what is going on is alcoholic ketoacidosis Must rule out ethylene glycol intoxication given the large metabolic acidosis Calculate his serum osmolar gap was 2X nl at 20, fractional excretion of sodium, look for granular casts as well as calcium oxalate crystals -none reported Continue hydration with mormon of systolic blood pressure around 100 (2) High anion gap metabolic acidosis: Resolving/resolved Assessment and plan: Alcoholic ketoacidosis is my #1 choice Without a component of lactic acidosis Need to rule out any need to rule out any methanol or ethylene glycol contributing though he denies drinking either of these. Improved without Tx of ethylene glycol so this was not the etiology (3) Alcoholism, chronic: Decrease benzo's due to mental status (4) Hypotension: (5) Electrolyte abnormality: Mg rider and KCl rider x 2 IV today due to poor po intake/obtundation (6) Rhabdomyolysis: Assessment and plan: Suspect this is alcohol induced rhabdomyolysis need to check his phosphorus -refeeding hypophosphatemia is present Potassium phosphate 80 mmol ordered for yesterday (7) A. fib with RVR on diltiazem / esmolol Sir Sg Preston would predict alcoholic cardiomyopathy echocardiogram pending with evidence of decreased EF Replace electrolytes Diltiazem /elmolol blood pressure permitting When awake, switch to po carvedilol and ACEi/ARB +/- furosemide...stop HCTZ Time Spent With Patient Time: Total time spent is greater than 50% in coordination of care (as documented) at patient's floor/unit and/or counseling patient: Total time spent with greater than 50% in coordination of care (as documented) at patient's floor/unit and/or counseling patient:: Greater than 35 minutes
[2020-02-23] MEDS: DEXTROSE 5%-NS W/20MEQ KCL 1,000 ML IV SCH (13:45)
[2020-02-23] MEDS ORDERED: chlordiazePOXIDE 25 MG CAPSULE PO PRN (14:19)
[2020-02-23] MEDS ORDERED: NOREPINEPHRINE BITARTRATE 8 MG in 0.9 % SODIUM CHLORIDE 242 ML IV PRN (15:00)
[2020-02-23] MEDS ORDERED: POTASSIUM CHLORIDE 40 MEQ in DEXTROSE 5% IN WATER 500 ML IV ONE ×2 (15:20→19:30)
[2020-02-23] MEDS: THIAMINE 100 MG TABLET PO SCH (15:44)
--- NOTE | 2020-02-23 15:53 | XRay Report ---
HISTORY: Pneumonia versus aspiration FINDINGS: The vague perihilar infiltrate seen on the left side on yesterday's chest x-ray has resolved. The lungs are now clear and normally expanded. The heart size is normal. There is no pleural effusion. IMPRESSION: Resolved small left perihilar infiltrate Interpreted and Authenticated by: Tan Varghese 02/23/20
[2020-02-23] MEDS: ESMOLOL 2,500 MG in PREMIX 1 BAG IV SCH (16:23)
[2020-02-23] MEDS: METOPROLOL TARTRATE 5 MG/5 ML VIAL IV SCH (16:23)
[2020-02-23] MEDS: THIAMINE 100 MG in 0.9 % SODIUM CHLORIDE 50 ML IV SCH (17:15)
[2020-02-23] MEDS: NOREPINEPHRINE BITARTRATE 8 MG in 0.9 % SODIUM CHLORIDE 242 ML IV SCH (17:15)
[2020-02-23 19:02] LABS: Appearance,Urine CLEAR (Clear); Bilirubin,Urine Negative (Negative); Color,Urine Yellow; Culture Indicated,Urine No; Glucose,Urine (UA) Negative (Negative); Ketones,Urine 5 mg/dL (Negative); Leukocyte Esterase,Urine 25 /ug (Negative); Mucus,Urine FEW /hpf; Nitrate,Urine Negative (Negative); Protein,Urine 30 mg/dL (Negative); Specific Gravity,Urine 1.016 (1.000-1.035); Urine Blood >=1.0 mg/dL (Negative); Urine RBC > 182 /hpf (0-1); Urine Squamous Epithelial Cell 0 /hpf (0-4); Urine WBC 9 /hpf (0-4)
[2020-02-23] MEDS ORDERED: DIAZEPAM 5 MG TABLET PO PRN (21:03)
[2020-02-23] MEDS: FAMOTIDINE/PF 20 MG/2 ML VIAL IV SCH (21:07)
--- NOTE | 2020-02-23 21:23 | Internal Med Progress Note ---
SUBJECTIVE Subjective Patient information: Note initiated : 02/23/20 at 9:08 pm Service Date, if different from initiated Date: [] Patient: Sindhu Delgado a 69 y/o M admitted on 02/20/20 for Low BP, Not Eating/Drinking. Chief Complaint: [] Mr. Delgado is a 69 year old M Presents the ED with weakness. History obtained from the patient as well as patient's . Patient is quite sedentary, sitting in chair most of the day, and does not eat very much typically a meal per day per his . About 5 days ago with adequate down their dog who is emotionally attached to and is quite devastating for him. That time he lost interest in eating. He has continued to drink for which he drinks 3-4 drinks of liquor per day although says he did have is much yesterday. Per the he acted a little confused this morning. Did have one episode of diarrhea in the ED. Denies chest pain or shortness of breath or abdominal pain. Denies headache fevers. Per he is always slightly tremulous but he seemed more shaky this morning. She called EMS who arrived and found that he was hypotensive and he had hypoglycemia and was given fluids and glucose. ED he was given almost 3 L of IV fluid. His says he looks better than when he arrived. 02/20 Patient states he is feeling better. No overnight issues. However nurse does state that he has lots of oral secretions and appears that he has a hard time clearing them at times. Will get speech therapy evaluating. Vasopressors off last night. Awaiting follow-up labs. Good urine output. 02/21 Patient seem to have gone and alcohol withdrawal overnight shift. Also went into A. fib RVR and started on diltiazem drip. Additionally patient started the setting and noted to have thick secretions seen like at our time clearing secretions. Patient placed on BiPAP. Patient seems groggy but does awaken and answer questions. 02/22 Patient does not have any new complaints. Blood pressure at times. Heart rate still not controlled. Metoprolol 2.5 IV push. Esmolol drip (on hold due to hypotension) Patient is on 2 L. Potassium was 3.1 AST 110, ALT 104 Review of Systems: denies headache/fever/chills/nausea/vomiting/chest or abdominal pain/cough/dyspnea/diarrhea. Otherwise see above. Constitutional Vitals: Vital Signs Temp Pulse Resp BP Pulse Ox 97.2 F 112 H 22 94/67 97 02/23/20 16:02 02/22/20 06:21 02/23/20 19:13 02/23/20 19:01 02/23/20 19:13 Period Temp Pulse Resp BP Sys/Lomeli Pulse Ox Last 24 Hr 97.2 F-98.1 F 16-29 71-133/47-117 83-100 Intake and Output 02/23/20 02/23/20 02/23/20 05:59 13:59 21:59 Intake Total 661 506.4078 Output Total 635 290 295 Balance 925 003.8781 -295 Intake & Output: Intake & Output 02/23/20 02/23/20 02/23/20 05:59 13:59 21:59 Intake Total 505 152.4621 Output Total 635 290 295 Balance 070 104.0128 -295 Intake: IV 975 219.1844 Dextrose 5%-Lactated Ringers 1, 972 000 ml @ 50 mls/hr IV .Q20H [facility] Rx#:[id number] Brevibloc 2,500 mg In Premix 1 20 Bag @ 50 MCG/KG/MIN 35.266 mls/ hr IV .Q7H6M [facility] Rx#:[id number] Levophed 8 mg In Sodium 0 Chloride 0.9% 242 ml @ 10 MCG/ MIN 18.75 mls/hr IV Q14H [facility] Rx #:[id number] Potassium Phosphate 40 Meq In 509.0909 Dextrose 5% in Water 500 ml @ 127.273 mls/hr IV Q12 [facility] Rx#: [id number] Output: Urine Catheter Amount 635 290 295 Other: Urine Appearance Clear Clear Clear Uretheral (Sanchez) Clear Clear Clear Urine Color Light Rosa Light Rosa [place] Uretheral (Sanchez) Dark Yellow Dark Yellow Dark Yellow Urine Odor Normal Stool Size Small Stool Color Brown Stool Consistency Watery Additional findings Additional findings: General: Awake, No acute Distress Eyes/N/T: EOMI, Head/Neck: neck supple, CV: irreg irreg, No murmurs, Pulm: Diminished b/l, no wheezing Abd: soft, nontender, +BS x4 Ext: no clubbing/cyanosis, b/l LE edema improved with BERYL's Neuro: Alert, no focal deficits, moves all extremities, Skin: warm/dry OBJ DATA Labs CBC & Chem 7: 02/23/20 05:29 02/23/20 05:29 Labs: Abnormal Lab Results 02/23/20 02/23/20 02/23/20 17:52 05:29 05:29 RBC 3.31 L Hgb 11.8 L Hct 33.3 L POC Hct MCV 100.6 H MCH 35.6 H Plt Count 109 L MPV Lymph % (Auto) 8.4 L [place] % (Auto) 13.1 H Lymph # (Auto) 0.71 L [place] # (Auto) 1.11 H POC Potassium Potassium 3.1 L Chloride Carbon Dioxide Anion Gap BUN Creatinine Glucose 137 H POC Glucose Uric Acid 8.9 H Calcium 8.2 L POC WB Ioniz Calcium Phosphorus Magnesium Total Bilirubin 1.2 H Direct Bilirubin 0.8 H GGT 471 H AST 110 H ALT 104 H Alkaline Phosphatase 162 H Lactate Dehydrogenase 1096 H Total Creatine Kinase Total Protein 5.6 L Albumin 2.7 L Globulin Albumin/Globulin Ratio 0.9 L Prealbumin Triglycerides Beta-Hydroxybutyrate Urine Protein 30 A Urine Ketones 5 A Urine Occult Blood >=1.0 A Urine Urobilinogen 4.0 A Ur Leukocyte Esterase 25 A Urine RBC > 182 H Urine WBC 9 H Urine Mucus Few A 02/22/20 02/22/20 02/22/20 09:03 05:06 05:06 RBC Hgb Hct POC Hct 38 L MCV MCH Plt Count MPV Lymph % (Auto) [place] % (Auto) Lymph # (Auto) [place] # (Auto) POC Potassium 2.5 L* Potassium 2.7 L* Chloride Carbon Dioxide 21 L Anion Gap 20.0 H BUN Creatinine 1.4 H Glucose 119 H POC Glucose 128 H Uric Acid 10.8 H Calcium 8.2 L POC WB Ioniz Calcium 1.10 L Phosphorus 0.8 L 0.9 L Magnesium 1.3 L 1.3 L Total Bilirubin 1.1 H Direct Bilirubin 0.8 H GGT 425 H AST 120 H ALT 101 H Alkaline Phosphatase 146 H Lactate Dehydrogenase 1130 H Total Creatine Kinase Total Protein 5.5 L Albumin 2.9 L Globulin Albumin/Globulin Ratio Prealbumin Triglycerides Beta-Hydroxybutyrate 3.64 H Urine Protein Urine Ketones Urine Occult Blood Urine Urobilinogen Ur Leukocyte Esterase Urine RBC Urine WBC Urine Mucus 02/22/20 02/21/20 02/21/20 05:06 05:07 05:07 RBC 3.26 L Hgb 11.7 L Hct 33.9 L POC Hct MCV 104.0 H MCH 35.9 H Plt Count 83 L MPV 10.7 H Lymph % (Auto) [place] % (Auto) Lymph # (Auto) [place] # (Auto) POC Potassium Potassium 2.8 L* Chloride 93 L Carbon Dioxide 12 L Anion Gap 29.0 H BUN 35 H Creatinine 2.3 H Glucose POC Glucose Uric Acid 11.2 H Calcium 7.5 L POC WB Ioniz Calcium Phosphorus Magnesium Total Bilirubin 1.3 H Direct Bilirubin GGT 333 H AST 143 H ALT Alkaline Phosphatase 126 H Lactate Dehydrogenase 10 L Total Creatine Kinase 632 H 1297 H Total Protein 5.4 L Albumin 2.9 L Globulin 5.2 H Albumin/Globulin Ratio 0 L Prealbumin Triglycerides 332 H Beta-Hydroxybutyrate Urine Protein Urine Ketones Urine Occult Blood Urine Urobilinogen Ur Leukocyte Esterase Urine RBC Urine WBC Urine Mucus 02/20/20 02/20/20 02/20/20 22:19 22:19 10:17 RBC Hgb Hct POC Hct MCV MCH Plt Count MPV Lymph % (Auto) [place] % (Auto) Lymph # (Auto) [place] # (Auto) POC Potassium Potassium 3.0 L Chloride 93 L Carbon Dioxide 11 L Anion Gap 29.0 H BUN 38 H Creatinine 2.6 H Glucose POC Glucose Uric Acid Calcium 7.5 L POC WB Ioniz Calcium Phosphorus Magnesium Total Bilirubin Direct Bilirubin GGT AST ALT Alkaline Phosphatase Lactate Dehydrogenase Total Creatine Kinase Total Protein Albumin 2.9 L Globulin Albumin/Globulin Ratio Prealbumin 12.4 L Triglycerides Beta-Hydroxybutyrate 6.72 H Urine Protein Urine Ketones Urine Occult Blood Urine Urobilinogen Ur Leukocyte Esterase Urine RBC Urine WBC Urine Mucus Meds: Medications Albuterol/Ipratropium (Duoneb) 3 ml NEB Q4HRT PRN PRN Reason: dysnpea Last Admin: 02/22/20 02:26 Dose: 3 ml Documented by: Atorvastatin Calcium (Lipitor) 40 mg PO QDAY [facility] Last Admin: 02/23/20 07:50 Dose: 40 mg Documented by: Diagnostic Test (Pha) (Accu-Chek) 1 each FS Q4H [facility] Last Admin: 02/23/20 17:55 Dose: 1 each Documented by: Diazepam (Valium) 5 mg PO Q8H PRN PRN Reason: Alcohol Withdrawal Famotidine (Pepcid) 20 mg IV HS [facility] Last Admin: 02/22/20 20:08 Dose: 20 mg Documented by: Folic Acid (Folic Acid) 1 mg PO DAILY [facility] Last Admin: 02/23/20 07:50 Dose: 1 mg Documented by: Heparin Sodium (Porcine) (Heparin) 5,000 unit SQ Q12 [facility] Last Admin: 02/23/20 11:51 Dose: 5,000 unit Documented by: Potassium Chloride 40 meq/ (Dextrose) 520 mls @ 130 mls/hr IV PRN PRN PRN Reason: potassium less than 3.0 Magnesium Sulfate (Magnesium Sulfate) 2 gm in 50 mls @ 25 mls/hr IV PRN PRN PRN Reason: Magnesium < Or = 1.8 Potassium Chloride/Dextrose/Sod Cl (Dextrose 5%-Ns W/20meq Kcl) 1,000 mls @ 50 mls/hr IV .Q20H [facility] Last Admin: 02/23/20 13:45 Dose: 50 mls/hr Documented by: Potassium Chloride 40 meq/ (Dextrose) 520 mls @ 130 mls/hr IV ONCE ONE Stop: 02/23/20 23:29 Esmolol HCl 2,500 mg/ Premix 250 mls @ 35.266 mls/hr IV .Q7H6M [facility]; Protocol Last Admin: 02/23/20 16:23 Dose: Not Given Documented by: Iron Carb/Multivit/[place]/Folic Acid (Multivitamin W/Minerals) 1 tab PO DAILY [facility] Last Admin: 02/23/20 07:50 Dose: 1 tab Documented by: Metoprolol Tartrate (Lopressor) 37.5 mg PO BID [facility] Last Admin: 02/23/20 07:50 Dose: 37.5 mg Documented by: Metoprolol Tartrate (Lopressor) 2.5 mg IV Q5M PRN PRN Reason: Tachyarrhythmias Last Admin: 02/23/20 17:19 Dose: 2.5 mg Documented by: Midodrine (Midodrine Hcl) 5 mg PO TID@0800,1200,1700 PRN PRN Reason: Hypotension Last Admin: 02/23/20 17:51 Dose: 5 mg Documented by: Ondansetron HCl (Zofran) 4 mg IV Q4-6HP PRN PRN Reason: Nausea And Vomiting Sertraline HCl (Zoloft) 50 mg PO QDAY [facility] Last Admin: 02/23/20 07:50 Dose: 50 mg Documented by: Sodium Chloride (Saline Flush) 10 ml IV Q8 [facility] Last Admin: 02/23/20 13:45 Dose: 10 ml Documented by: Thiamine HCl (Vitamin B1) 100 mg PO DAILY [facility] Last Admin: 02/23/20 15:44 Dose: 100 mg Documented by: A/P Narrative A/P Narrative: 1. Acute hypoxic respiratory failure -Pulse ox -Oxygen therapy, to keep oxygen saturation greater than 92% 2. Hypovolemic shock - off levophed Hypotension -As per wifer, his blood pressures been running on the low side -Gentle IV fluid -Midodrin as needed 3. SULLY 4. Alcoholic ketoacidosis 5. High anion gap metabolic acidosis 6. Multiple electrolyte abnormalities 7. Hypophosphatemia and hypokalemia - refeeding syndrome Conveyor Installer on board, really appreciate it 8. Aspiration: pt likely aspirating on his excessive mucus production. scopolomine patch 9. ETOH abuse with W/D: MVI/Thiamine/Folate CIWA protocol 10. thrombocytopenia: 2/2 etoh -Repeat CBC in morning 11. Hypoglycemia: 2/2 poor diet + chronic etoh D5+normal saline+ potassium chloride 12. Hyponatremia/chloride: 2/2 beer potomania. improving 13. Elevated CPK: 2/2 immobilization/etoh -no granular 14. Transaminitis, mild: 2/2 hypotension/?etoh component 15. FTT/Malnutrition: 2/2 chronic alcoholism + recent life event. prealbumin 12 16. Afib RVR -chadsvasc=2, I would not like to start anticoagulation at this moment based on his a current condition and hematuria. 17. UTI? Hematuria Ceftriaxone 18. ICU Delerium: given chronic alcoholism I suspect there is some underlying cerebral damage *Poor long-term prognosis in chronic etoh pt/ot/ST ppx: heparin/home ppi Time Spent With Patient Time: Total time spent is greater than 50% in coordination of care (as documented) at patient's floor/unit and/or counseling patient: QUALITY VTE Deep Vein Thrombosis/Pulmonary Embolism Present on Admission: No
[2020-02-23] MEDS: cefTRIAXone 1 GM VIAL IV SCH (22:35)
[2020-02-24] MEDS: ESMOLOL 2,500 MG in PREMIX 1 BAG IV SCH ×4 (02:33→15:45)
[2020-02-24] MEDS ORDERED: LORazepam 2 MG/ML VIAL IV PRN ×2 (02:34→15:15)
[2020-02-24 07:16] LABS: ALT/SGPT 102 U/L (<40); AST/SGOT 94 U/L (<40); Albumin 2.6 gm/dL (3.2-5.2); Albumin/Globulin Ratio 0.9 (1.0-2.3); Alkaline Phosphatase 160 U/L (39-117); Bilirubin,Total 0.8 mg/dL (0.1-1.0); Blood Urea Nitrogen 10 mg/dL (8-23); Calcium 8.3 mg/dL (8.6-10.4); Carbon Dioxide 25 mmol/L (22-30); Chloride 101 mmol/L (96-108); Creatine Kinase 159 U/L (24-195); Glomerular Filtration Rate 76; Glucose 108 mg/dL (70-105)
[2020-02-24] MEDS ORDERED: MAGNESIUM SULFATE 2 GM/50 ML BAG IV ONE (07:39)
[2020-02-24] MEDS: 0.9 % SODIUM CHLORIDE 10 ML SYRINGE IV SCH ×3 (07:45→21:50)
[2020-02-24 07:46] LABS: Basophils # (Auto) 0.02 K/mcL (0.00-0.20); Basophils % (Auto) 0.3 % (0.0-2.0); Eosinophils # (Auto) 0.14 K/mcL (0.00-0.70); Eosinophils % (Auto) 1.8 % (0.0-7.0); Hematocrit 35.3 % (41.0-55.0); Hemoglobin 11.7 g/dL (13.5-16.5); Lymphocytes # (Auto) 0.89 K/mcL (1.50-4.80); Lymphocytes % (Auto) 11.6 % (15.0-49.0); Mean Cell Volume 107.6 fL (80.0-100.0); Mean Corpuscular HGB Conc 33.1 g/dL (31.0-36.0); Mean Platelet Volume 10.1 fL (7.4-10.4); Monocytes # (Auto) 1.64 K/mcL (0.10-0.90); Monocytes % (Auto) 21.3 % (1.0-12.0); Platelet Count 134 K/mcL (140-440); RBC 3.28 M/mcL (4.50-5.90); Red Cell Distribution Width 14.4 % (11.5-14.5); WBC 7.7 K/mcL (4.5-11.0)
[2020-02-24] MEDS ORDERED: DIGOXIN 500 MCG/2 ML AMPUL IV ONE ×2 (07:46→14:00)
[2020-02-24] MEDS: HEPARIN 5,000 UNIT/ML VIAL SQ SCH ×2 (08:13→21:46)
[2020-02-24] MEDS: SERTRALINE 50 MG TABLET PO SCH (08:14)
[2020-02-24] MEDS: FOLIC ACID 1 MG TABLET PO SCH (08:14)
[2020-02-24] MEDS: METOPROLOL TARTRATE 25 MG TABLET PO SCH ×2 (08:14→21:49)
[2020-02-24] MEDS: MULTIVIT,THER IRON,CA,FA & MIN 1 TABLET PO SCH (08:14)
[2020-02-24] MEDS: ATORVASTATIN 40 MG TABLET PO SCH (08:14)
[2020-02-24] MEDS: THIAMINE 100 MG TABLET PO SCH (08:14)
[2020-02-24] MEDS: cefTRIAXone 1 GM VIAL IV SCH (09:51)
--- NOTE | 2020-02-24 10:57 | XRay Report ---
HISTORY: Constipation FINDINGS: There is relatively little air or stool in the colon. Small amount stool is seen in the rectum. Small bowel is decompressed. No mass is identified. Arthritis is present at L5. IMPRESSION: Normal exam, without evidence of fecal impaction Interpreted and Authenticated by: Tan Varghese 02/24/20
--- NOTE | 2020-02-24 13:07 | Nephrology Progress Note ---
SUBJECTIVE Subjective Patient information: Note initiated : 02/24/20 at 1:00 pm Service Date, if different from initiated Date: [] Patient: Sindhu Delgado 69 y/o M admitted on 02/20/20 for Low BP, Not Eating/Drinking. Chief Complaint: [Alcoholic ketoacidosis with electrolyte abnl and ARF] Patient was seen and evaluated on morning rounds. He is exhibited marked improvement in his GFR, metabolic acidosis with alcohol ketoacidosis, multiple electrolyte abnormalities, refeeding hypophosphatemia and low-grade rhabdomyolysis. He denies a history of alcohol withdrawal seizures or DTs and his alteration in mental status may have been related to toxic metabolic encephalopathy with acute renal failure electrolyte abnormalities acid-base disturbances plus the use of some sedatives out of concern for impending alcohol withdrawal syndrome. He remains tachycardic and occasionally hypotensive with an echocardiogram that does suggest a reduced LVEF consistent with an alcoholic cardiomyopathy. He also has low-grade thrombocytopenia and an elevated MCV to go along with chronic alcohol use. He did not exhibit any clinical signs or symptoms of Warnicke's [place] during this stay. On rounds this morning I strongly suggested that he seek a [facility]-based alcohol rehab due to the critical nature of cessation of alcohol intake in this gentleman. Finally displayed rather low blood pressure heart [place] treatment of his paroxysmal atrial fibrillation using digoxin for rate control and using tiny doses of captopril for what I believe is his alcoholic cardiomyopathy. Laboratory Tests 02/24/20 02/24/20 05:30 05:30 Sodium 139 Potassium 3.7 Chloride 101 Carbon Dioxide 25 Anion Gap 13.0 BUN 10 Creatinine 1.0 GFR Calculation 76 Glucose 108 H Calcium 8.3 L Magnesium 1.6 Total Bilirubin 0.8 AST 94 H ALT 102 H Alkaline Phosphatase 160 H Total Creatine Kinase 159 NT-Pro-B Natriuret Pep 3079.0 H Albumin 2.6 L Constitutional Vitals: Vital Signs Temp Pulse Resp BP Pulse Ox 36.6 C 112 H 22 92/62 90 02/24/20 10:02 02/22/20 06:21 02/24/20 11:08 02/24/20 11:08 02/24/20 11:08 Period Temp Pulse Resp BP Sys/Lomeli Pulse Ox Last 24 Hr 36.2 C-36.8 C 16-29 67-131/42-93 83-100 Intake and Output 02/23/20 02/24/20 02/24/20 21:59 05:59 13:59 Intake Total 658 520 340 Output Total 425 770 400 Balance 233 -250 -60 Weight 119 kg 119 kg Patient Weight 02/25/20 05:59 Weight 119 kg Intake & Output: Intake & Output 02/23/20 02/24/20 02/24/20 21:59 05:59 13:59 Intake Total 658 520 340 Output Total 425 770 400 Balance 233 -250 -60 Weight 119 kg 119 kg Intake: Nourishment/Supplement quantity 240 (ml) IV 658 520 Sodium Chloride 0.9% 250 ml @ 138 20 mls/hr IV .[id number] [facility] Rx#: [id number] Potassium Chloride 40 Meq In 520 520 Dextrose 5% in Water 500 ml @ 130 mls/hr IV ONCE ONE Rx#: [id number] Oral 100 Output: Urine Catheter Amount 425 770 400 Other: Meal Breakfast Percent of Meal Consumed Refused Refused Feeding Ability Independent Needs Supervision Nourishment/Supplement name Ensure Urine Appearance Sediment Sediment Clear Uretheral (Sanchez) Clear Sediment Clear Urine Color Ramsey Ramsey Dark Rosa Uretheral (Sanchez) Dark Yellow Ramsey Dark Rosa Urine Odor Normal Stool Size Small Stool Color Brown Stool Consistency Soft # Bowel Movements 1 General appearance: cooperative, disheveled, no acute distress and obese Head Head exam: Present atraumatic and normocephalic Eye Eye exam: Present EOMI and PERRL; Absent nystagmus and scleral icterus Pupils: Present PERRL Additional comments: Both eyes cross the midline ENT ENT exam: Present mucous membranes dry Neck Neck exam: Present full ROM; Absent meningismus Respiratory Respiratory exam: Present rhonchi Cardiovascular Cardiovascular exam: Present JVD, +S1, +S2 and tachycardia; Absent +S3 GI/Abdominal GI/Abdominal exam: Present normal bowel sounds and distended; Absent guarding, organomegaly and tenderness Extremities Exam Extremities exam: Present pedal edema (Trace bilaterally); Absent calf tenderness Back Exam Additional comments: No CVAT Neurological Exam Neurological exam: Present abnormal gait (Not tested), alert (Easily arousable), CN II-XII intact and oriented X3; Absent motor sensory deficit Psychiatric Psychiatric exam: Present flat affect and normal mood Skin Skin exam: Present abrasion Additional comments: Scattered ecchymoses A/P Assessment and plan (1) Acute renal failure (ARF): Assessment and plan: Easiest explanation would be dehydration in the setting of hypotension and continued NOLA inhibitor administration Unfortunately that will not explain the bulk of the electrolyte abnormalities nor will I did explain the metabolic acidosis Rhabdomyolysis is present but seems to be low-grade I suspect part of what is going on is alcoholic ketoacidosis Must rule out ethylene glycol intoxication given the large metabolic acidosis We will need to calculate his serum osmolar gap, fractional excretion of sodium, look for granular casts as well as calcium oxalate crystals as soon as the urine becomes available. Continue hydration with yazdanism of systolic blood pressure around 100 Status: Acute Comment: Last creatinine in 2019 was normal Qualifiers: Acute renal failure type: unspecified Qualified Code(s): N17.9 - Acute kidney failure, unspecified (2) High anion gap metabolic acidosis: Assessment and plan: Alcoholic ketoacidosis is my #1 choice With or without a component of lactic acidosis Need to rule out any need to rule out any methanol or ethylene glycol contributing though he denies drinking either of these Status: Acute (3) Alcoholism, chronic: Status: Acute Comment: reports 4-5 alcoholic beverages daily and he had a detectable alcohol level of 0.01 on admission. He has other hematologic signs of chronic alcohol use including high MCV and low platelet count (4) Hypotension: Status: Acute Comment: says his blood pressures been running running on the low side recently so could be due to his medications Qualifiers: Hypotension type: hypotension due to drug Qualified Code(s): I95.2 - Hypotension due to drugs (5) Electrolyte abnormality: Status: Acute Comment: Suspect alcohol related electrolyte abnormalities as acute renal failure from just dehydration and NOLA inhibitors tends to have a high potassium not low (6) Rhabdomyolysis: Assessment and plan: Suspect this is alcohol induced rhabdomyolysis need to check his phosphorus Status: Acute Comment: Suspect alcohol related. Resolved within 72 hours Qualifiers: Encounter type: subsequent encounter Narrative A/P Narrative: 1) Acute renal failure (ARF): IMPROVED Assessment and plan: Easiest explanation would be dehydration in the setting of hypotension and continued NOLA inhibitor administration Unfortunately that will not explain the bulk of the electrolyte abnormalities nor will I did explain the metabolic acidosis Rhabdomyolysis is present but seems to be low-grade I suspect part of what is going on is alcoholic ketoacidosis Must rule out ethylene glycol intoxication given the large metabolic acidosis Calculate his serum osmolar gap was 2X nl at 20, fractional excretion of sodium, look for granular casts as well as calcium oxalate crystals -none reported Continue hydration with yazdanism of systolic blood pressure around 100 (2) High anion gap metabolic acidosis: Resolving/resolved Assessment and plan: Alcoholic ketoacidosis is my #1 choice Without a component of lactic acidosis Need to rule out any need to rule out any methanol or ethylene glycol contributing though he denies drinking either of these. Improved without Tx of ethylene glycol so this was not the etiology (3) Alcoholism, chronic: Decrease benzo's due to mental status (4) Hypotension: (5) Electrolyte abnormality: Mg rider and KCl rider x 2 IV today due to poor po intake/obtundation (6) Rhabdomyolysis: Assessment and plan: Suspect this is alcohol induced rhabdomyolysis need to check his phosphorus -refeeding hypophosphatemia is present Potassium phosphate 80 mmol ordered for yesterday (7) A. fib with RVR on diltiazem / esmolol [facility] Sg [place] would predict alcoholic cardiomyopathy echocardiogram pend ing with evidence of decreased EF Replace electrolytes Diltiazem /elmolol blood pressure permitting When awake, switch to po carvedilol and ACEi/ARB +/- furosemide...stop HCTZ (3) suspected alcohol related cardiomyopathy with atrial fibrillation Agree with digoxin for rate control Start captopril 3.125 mg p.o. every 6 hours holding if blood pressure less than 100 systolic Monitor GFR and electrolytes particularly potassium (4) electrolyte abnormalities Oral magnesium and potassium replacement Continue regular diet with sodium restriction Absolutely no further ill alcohol intake (5) alcohol use and abuse I recommend [facility]-based rehab for without alcohol cessation there is no helping this gentleman. Time Spent With Patient Time: Total time spent is greater than 50% in coordination of care (as documented) at patient's floor/unit and/or counseling patient: Total time spent with greater than 50% in coordination of care (as documented) at patient's floor/unit and/or counseling patient:: Greater than 35 minutes
[2020-02-24] MEDS: MIDODRINE 5 MG TABLET PO PRN (14:24)
[2020-02-24] MEDS: DEXTROSE 5%-NS W/20MEQ KCL 1,000 ML IV SCH (14:56)
--- NOTE | 2020-02-24 14:59 | Internal Med Progress Note ---
SUBJECTIVE Subjective Patient information: Note initiated : 02/24/20 at 2:55 pm Service Date, if different from initiated Date: [] Patient: Sindhu Delgado a 69 y/o M admitted on 02/20/20 for Low BP, Not Eating/Drinking. Chief Complaint: [] Mr. Delgado is a 69 year old M Presents the ED with weakness. History obtained from the patient as well as patient's . Patient is quite sedentary, sitting in chair most of the day, and does not eat very much typically a meal per day per his . About 5 days ago with adequate down their dog who is emotionally attached to and is quite devastating for him. That time he lost interest in eating. He has continued to drink for which he drinks 3-4 drinks of liquor per day although says he did have is much yesterday. Per the he acted a little confused this morning. Did have one episode of diarrhea in the ED. Denies chest pain or shortness of breath or abdominal pain. Denies headache fevers. Per he is always slightly tremulous but he seemed more shaky this morning. She called EMS who arrived and found that he was hypotensive and he had hypoglycemia and was given fluids and glucose. ED he was given almost 3 L of IV fluid. His says he looks better than when he arrived. 02/20 Patient states he is feeling better. No overnight issues. However nurse does state that he has lots of oral secretions and appears that he has a hard time clearing them at times. Will get speech therapy evaluating. Vasopressors off last night. Awaiting follow-up labs. Good urine output. 02/21 Patient seem to have gone and alcohol withdrawal overnight shift. Also went into A. fib RVR and started on diltiazem drip. Additionally patient started the setting and noted to have thick secretions seen like at our time clearing secretions. Patient placed on BiPAP. Patient seems groggy but does awaken and answer questions. 02/22 Patient does not have any new complaints. Blood pressure at times. Heart rate still not controlled. Metoprolol 2.5 IV push. Esmolol drip (on hold due to hypotension) Patient is on 2 L. Potassium was 3.1 AST 110, ALT 104 02/23 Patient does not have any new complaints. Patient has not had a bowel movement for days. Heart rate is still not well controlled because he the blood pressure does not have tolerate metoprolol/esmolol drip. So I started digoxin. I will decrease metoprolol. Nephrology Dr. Nava recommended captopril 3.125mg po every 6 hours for his cardiomyopathy. I will start the med when his BP improved. Potassium was 3.7, BNP 3079 XRay abd -no evidence of fecal impaction. Review of Systems: denies headache/fever/chills/nausea/vomiting/chest or abdominal pain/cough/dyspnea/diarrhea. Otherwise see above. Constitutional Vitals: Vital Signs Temp Pulse Resp BP Pulse Ox 97.9 F 112 H 23 H 106/78 95 02/24/20 14:01 02/22/20 06:21 02/24/20 14:01 02/24/20 14:01 02/24/20 14:01 Period Temp Pulse Resp BP Sys/Lomeli Pulse Ox Last 24 Hr 97.2 F-98.3 F 15-29 67-131/42-93 83-99 Intake and Output 02/24/20 02/24/20 02/24/20 05:59 13:59 21:59 Intake Total 300 982 9112 Output Total 770 510 Balance -602 615 4178 Weight 119 kg Patient Weight 02/25/20 05:59 Weight 119 kg Intake & Output: Intake & Output 02/24/20 02/24/20 02/24/20 05:59 13:59 21:59 Intake Total 884 967 6394 Output Total 770 510 Balance -291 388 8440 Weight 119 kg Intake: Nourishment/Supplement quantity 480 (ml) IV 307 37 3005 Dextrose 5%-Ns W/20Meq KCl 1, 1000 000 ml @ 50 mls/hr IV .Q20H [facility] Rx#:[id number] Potassium Chloride 40 Meq In 520 Dextrose 5% in Water 500 ml @ 130 mls/hr IV ONCE ONE Rx#: [id number] Oral 340 Output: Urine Catheter Amount 770 510 Other: Meal Breakfast Percent of Meal Consumed 30% Feeding Ability Needs Supervision Nourishment/Supplement name Ensure Urine Appearance Sediment Clear Uretheral (Sanchez) Sediment Clear Urine Color Solon Dark Rosa Uretheral (Sanchez) Solon Dark Rosa Urine Odor Normal Stool Size Small Stool Color Brown Stool Consistency Soft # Bowel Movements 1 Additional findings Additional findings: General: Awake, No acute Distress Eyes/N/T: EOMI, Head/Neck: neck supple, CV: irreg irreg, No murmurs, Pulm: Diminished b/l, no wheezing Abd: soft, nontender, hypoactive BS Ext: no clubbing/cyanosis, b/l LE edema improved with BERYL's Neuro: Alert, no focal deficits, moves all extremities, Skin: warm/dry OBJ DATA Labs CBC & Chem 7: 02/24/20 05:30 02/24/20 05:30 Labs: Abnormal Lab Results 02/24/20 02/24/20 02/23/20 05:30 05:30 17:52 RBC 3.28 L Hgb 11.7 L Hct 35.3 L POC Hct MCV 107.6 H MCH 35.7 H Plt Count 134 L Lymph % (Auto) 11.6 L Richardson % (Auto) 21.3 H Lymph # (Auto) 0.89 L Richardson # (Auto) 1.64 H POC Potassium Potassium Chloride Carbon Dioxide Anion Gap BUN Creatinine Glucose 108 H POC Glucose Uric Acid Calcium 8.3 L POC WB Ioniz Calcium Phosphorus Magnesium Total Bilirubin Direct Bilirubin GGT AST 94 H ALT 102 H Alkaline Phosphatase 160 H Lactate Dehydrogenase Total Creatine Kinase NT-Pro-B Natriuret Pep 3079.0 H Total Protein 5.6 L Albumin 2.6 L Globulin Albumin/Globulin Ratio 0.9 L Triglycerides Beta-Hydroxybutyrate Urine Protein 30 A Urine Ketones 5 A Urine Occult Blood >=1.0 A Urine Urobilinogen 4.0 A Ur Leukocyte Esterase 25 A Urine RBC > 182 H Urine WBC 9 H Urine Mucus Few A 02/23/20 02/23/20 02/22/20 05:29 05:29 09:03 RBC 3.31 L Hgb 11.8 L Hct 33.3 L POC Hct 38 L MCV 100.6 H MCH 35.6 H Plt Count 109 L Lymph % (Auto) 8.4 L Richardson % (Auto) 13.1 H Lymph # (Auto) 0.71 L Richardson # (Auto) 1.11 H POC Potassium 2.5 L* Potassium 3.1 L Chloride Carbon Dioxide Anion Gap BUN Creatinine Glucose 137 H POC Glucose 128 H Uric Acid 8.9 H Calcium 8.2 L POC WB Ioniz Calcium 1.10 L Phosphorus Magnesium Total Bilirubin 1.2 H Direct Bilirubin 0.8 H GGT 471 H AST 110 H ALT 104 H Alkaline Phosphatase 162 H Lactate Dehydrogenase 1096 H Total Creatine Kinase NT-Pro-B Natriuret Pep Total Protein 5.6 L Albumin 2.7 L Globulin Albumin/Globulin Ratio 0.9 L Triglycerides Beta-Hydroxybutyrate Urine Protein Urine Ketones Urine Occult Blood Urine Urobilinogen Ur Leukocyte Esterase Urine RBC Urine WBC Urine Mucus 02/22/20 02/22/20 02/22/20 05:06 05:06 05:06 RBC Hgb Hct POC Hct MCV MCH Plt Count Lymph % (Auto) Richardson % (Auto) Lymph # (Auto) Richardson # (Auto) POC Potassium Potassium 2.7 L* Chloride Carbon Dioxide 21 L Anion Gap 20.0 H BUN Creatinine 1.4 H Glucose 119 H POC Glucose Uric Acid 10.8 H Calcium 8.2 L POC WB Ioniz Calcium Phosphorus 0.8 L 0.9 L Magnesium 1.3 L 1.3 L Total Bilirubin 1.1 H Direct Bilirubin 0.8 H GGT 425 H AST 120 H ALT 101 H Alkaline Phosphatase 146 H Lactate Dehydrogenase 1130 H Total Creatine Kinase 632 H NT-Pro-B Natriuret Pep Total Protein 5.5 L Albumin 2.9 L Globulin Albumin/Globulin Ratio Triglycerides Beta-Hydroxybutyrate 3.64 H Urine Protein Urine Ketones Urine Occult Blood Urine Urobilinogen Ur Leukocyte Esterase Urine RBC Urine WBC Urine Mucus 02/21/20 05:07 RBC Hgb Hct POC Hct MCV MCH Plt Count Lymph % (Auto) Richardson % (Auto) Lymph # (Auto) Richardson # (Auto) POC Potassium Potassium 2.8 L* Chloride 93 L Carbon Dioxide 12 L Anion Gap 29.0 H BUN 35 H Creatinine 2.3 H Glucose POC Glucose Uric Acid 11.2 H Calcium 7.5 L POC WB Ioniz Calcium Phosphorus Magnesium Total Bilirubin 1.3 H Direct Bilirubin GGT 333 H AST 143 H ALT Alkaline Phosphatase 126 H Lactate Dehydrogenase 10 L Total Creatine Kinase NT-Pro-B Natriuret Pep Total Protein 5.4 L Albumin 2.9 L Globulin 5.2 H Albumin/Globulin Ratio 0 L Triglycerides 332 H Beta-Hydroxybutyrate Urine Protein Urine Ketones Urine Occult Blood Urine Urobilinogen Ur Leukocyte Esterase Urine RBC Urine WBC Urine Mucus Meds: Medications Albuterol/Ipratropium (Duoneb) 3 ml NEB Q4HRT PRN PRN Reason: dysnpea Last Admin: 02/22/20 02:26 Dose: 3 ml Documented by: Atorvastatin Calcium (Lipitor) 40 mg PO QDAY [facility] Last Admin: 02/24/20 08:14 Dose: 40 mg Documented by: Captopril (Capoten) 3.125 mg PO TID [facility] Last Admin: 02/24/20 14:24 Dose: 3.125 mg Documented by: Ceftriaxone Sodium (Rocephin) 1 gm IV Q24H [facility]; Protocol Last Admin: 02/24/20 09:51 Dose: 1 gm Documented by: Diazepam (Valium) 5 mg PO Q8H PRN PRN Reason: Alcohol Withdrawal Last Admin: 02/23/20 21:55 Dose: 5 mg Documented by: Digoxin (Lanoxin) 125 mcg PO DAILY [facility] Famotidine (Pepcid) 20 mg IV HS [facility] Last Admin: 02/23/20 21:07 Dose: 20 mg Documented by: Folic Acid (Folic Acid) 1 mg PO DAILY [facility] Last Admin: 02/24/20 08:14 Dose: 1 mg Documented by: Heparin Sodium (Porcine) (Heparin) 5,000 unit SQ Q12 [facility] Last Admin: 02/24/20 08:13 Dose: 5,000 unit Documented by: Potassium Chloride 40 meq/ (Dextrose) 520 mls @ 130 mls/hr IV PRN PRN PRN Reason: potassium less than 3.0 Magnesium Sulfate (Magnesium Sulfate) 2 gm in 50 mls @ 25 mls/hr IV PRN PRN PRN Reason: Magnesium < Or = 1.8 Esmolol HCl 2,500 mg/ Premix 250 mls @ 35.266 mls/hr IV .Q7H6M [facility]; Protocol Last Admin: 02/24/20 13:07 Dose: Not Given Documented by: Iron Carb/Multivit/Armored Service Technician/Folic Acid (Multivitamin W/Minerals) 1 tab PO DAILY [facility] Last Admin: 02/24/20 08:14 Dose: 1 tab Documented by: Lorazepam (Ativan) 0.5 mg IV Q4HP PRN PRN Reason: ANXIETY/SEDATION Metoprolol Tartrate (Lopressor) 37.5 mg PO BID [facility] Last Admin: 02/24/20 08:14 Dose: 37.5 mg Documented by: Metoprolol Tartrate (Lopressor) 2.5 mg IV Q5M PRN PRN Reason: Tachyarrhythmias Last Admin: 02/23/20 17:19 Dose: 2.5 mg Documented by: Midodrine (Midodrine Hcl) 5 mg PO TID@0800,1200,1700 PRN PRN Reason: Hypotension Last Admin: 02/24/20 14:24 Dose: 5 mg Documented by: Ondansetron HCl (Zofran) 4 mg IV Q4-6HP PRN PRN Reason: Nausea And Vomiting Sertraline HCl (Zoloft) 50 mg PO QDAY [facility] Last Admin: 02/24/20 08:14 Dose: 50 mg Documented by: Sodium Chloride (Saline Flush) 10 ml IV Q8 [facility] Last Admin: 02/24/20 14:25 Dose: 10 ml Documented by: Thiamine HCl (Vitamin B1) 100 mg PO DAILY [facility] Last Admin: 02/24/20 08:14 Dose: 100 mg Documented by: A/P Narrative A/P Narrative: 1. Acute hypoxic respiratory failure -Pulse ox -Oxygen therapy, to keep oxygen saturation greater than 92% 2. Hypovolemic shock - off levophed Hypotension -As per , his blood pressures been running on the low side -Gentle IV fluid -Midodrin as needed -will decrease metoprolol 3. SULLY - resolved 4. Alcoholic ketoacidosis 5. High anion gap metabolic acidosis 6. Multiple electrolyte abnormalities 7. Hypophosphatemia and hypokalemia - refeeding syndrome Cell Stripper Final on board, really appreciate it 8. Aspiration: pt likely aspirating on his excessive mucus production. scopolomine patch 9. ETOH abuse with W/D: MVI/Thiamine/Folate CIWA protocol 10. thrombocytopenia: 2/2 etoh -Repeat CBC in morning 11. Hypoglycemia: 2/2 poor diet + chronic etoh D5+normal saline+ potassium chloride 12. Hyponatremia/chloride: 2/2 beer potomania. improving 13. Elevated CPK: 2/2 immobilization/etoh -no granular 14. Transaminitis, mild: 2/2 hypotension/?etoh component 15. FTT/Malnutrition: 2/2 chronic alcoholism + recent life event. prealbumin 12 16. Afib RVR -chadsvasc=2, I would not like to start anticoagulation at this moment based on his a current condition and hematuria. -Digoxin 500mcg x 1 today, 125mcg daily from tomorrow. Check digoxin level in the morning -With decrease metoprolol for hypotension 17. UTI? Hematuria Ceftriaxone 18. ICU Delerium: given chronic alcoholism I suspect there is some underlying cerebral damage *Poor long-term prognosis in chronic etoh pt/ot/ST ppx: heparin/home ppi Time Spent With Patient Time: Total time spent is greater than 50% in coordination of care (as documented) at patient's floor/unit and/or counseling patient: QUALITY VTE Deep Vein Thrombosis/Pulmonary Embolism Present on Admission: No
[2020-02-24] MEDS ORDERED: CAPTOPRIL 12.5 MG TABLET PO SCH (15:00)
[2020-02-24] MEDS ORDERED: LACTULOSE 20 GM/30 ML ORAL.SOL PO PRN ×2 (15:01→15:15)
[2020-02-24] MEDS ORDERED: IPRATROPIUM/ALBUTEROL 3 ML AMPUL.NEB NEB PRN (15:15)
[2020-02-24] MEDS ORDERED: POTASSIUM CHLORIDE 40 MEQ in DEXTROSE 5% IN WATER 500 ML IV PRN (15:15)
[2020-02-24] MEDS ORDERED: DIAZEPAM 5 MG TABLET PO PRN (15:15)
[2020-02-24] MEDS ORDERED: ONDANSETRON 4 MG/2 ML VIAL IV PRN (15:15)
[2020-02-24] MEDS ORDERED: MIDODRINE 5 MG TABLET PO PRN (15:15)
[2020-02-24] MEDS ORDERED: MAGNESIUM SULFATE 2 GM/50 ML BAG IV PRN (15:15)
[2020-02-24] MEDS ORDERED: METOPROLOL TARTRATE 5 MG/5 ML VIAL IV PRN (15:15)
[2020-02-24] MEDS: 0.9 % SODIUM CHLORIDE 250 ML IV SCH (16:41)
[2020-02-24] MEDS ORDERED: METOPROLOL TARTRATE 25 MG TABLET PO SCH (21:00)
[2020-02-24] MEDS: FAMOTIDINE/PF 20 MG/2 ML VIAL IV SCH (21:48)
[2020-02-24] MEDS: CAPTOPRIL 12.5 MG TABLET PO SCH (23:11)
[2020-02-25] MEDS: ESMOLOL 2,500 MG in PREMIX 1 BAG IV SCH ×3 (00:28→16:32)
[2020-02-25] MEDS: 0.9 % SODIUM CHLORIDE 250 ML IV SCH ×2 (05:54→16:32)
[2020-02-25 06:21] LABS: ALT/SGPT 87 U/L (<40); AST/SGOT 80 U/L (<40); Albumin 2.5 gm/dL (3.2-5.2); Albumin/Globulin Ratio 0.8 (1.0-2.3); Alkaline Phosphatase 152 U/L (39-117); Bilirubin,Total 0.7 mg/dL (0.1-1.0); Blood Urea Nitrogen 9 mg/dL (8-23); Calcium 8.5 mg/dL (8.6-10.4); Carbon Dioxide 27 mmol/L (22-30); Chloride 102 mmol/L (96-108); Glomerular Filtration Rate 86; Glucose 98 mg/dL (70-105)
[2020-02-25 06:22] LABS: Digoxin 0.6 ng/mL
[2020-02-25] MEDS ORDERED: DIGOXIN 125 MCG TABLET PO SCH ×2 (07:00)
[2020-02-25] MEDS: 0.9 % SODIUM CHLORIDE 10 ML SYRINGE IV SCH ×3 (07:16→21:19)
[2020-02-25] MEDS: DIGOXIN 125 MCG TABLET PO SCH ×2 (07:16→09:53)
[2020-02-25 08:07] LABS: Basophils # (Auto) 0.07 K/mcL (0.00-0.20); Basophils % (Auto) 0.9 % (0.0-2.0); Eosinophils # (Auto) 0.14 K/mcL (0.00-0.70); Eosinophils % (Auto) 1.9 % (0.0-7.0); Hematocrit 33.7 % (41.0-55.0); Hemoglobin 11.2 g/dL (13.5-16.5); Lymphocytes # (Auto) 0.77 K/mcL (1.50-4.80); Lymphocytes % (Auto) 10.2 % (15.0-49.0); Mean Cell Volume 107.7 fL (80.0-100.0); Mean Corpuscular HGB Conc 33.2 g/dL (31.0-36.0); Mean Platelet Volume 10.1 fL (7.4-10.4); Monocytes % (Auto) 23.9 % (1.0-12.0); Neutrophils % (Auto) 63.1 % (38.0-78.0); Platelet Count 150 K/mcL (140-440); RBC 3.13 M/mcL (4.50-5.90); Red Cell Distribution Width 14.6 % (11.5-14.5); WBC 7.5 K/mcL (4.5-11.0)
[2020-02-25] MEDS: THIAMINE 100 MG TABLET PO SCH (10:00)
[2020-02-25] MEDS: SERTRALINE 50 MG TABLET PO SCH (10:00)
[2020-02-25] MEDS: MULTIVIT,THER IRON,CA,FA & MIN 1 TABLET PO SCH (10:00)
[2020-02-25] MEDS: ATORVASTATIN 40 MG TABLET PO SCH (10:00)
[2020-02-25] MEDS: FOLIC ACID 1 MG TABLET PO SCH (10:00)
[2020-02-25] MEDS: HEPARIN 5,000 UNIT/ML VIAL SQ SCH ×2 (10:00→21:13)
[2020-02-25] MEDS: CAPTOPRIL 12.5 MG TABLET PO SCH ×3 (10:01→21:16)
[2020-02-25] MEDS: METOPROLOL TARTRATE 25 MG TABLET PO SCH ×3 (10:03→21:16)
[2020-02-25] MEDS: cefTRIAXone 1 GM VIAL IV SCH (10:13)
--- NOTE | 2020-02-25 10:40 | Nephrology Progress Note ---
SUBJECTIVE Subjective Patient information: Note initiated : 02/25/20 at 10:39 am Service Date, if different from initiated Date: [] Patient: Sindhu Delgado 69 y/o M admitted on 02/20/20 for Low BP, Not Eating/Drinking. Chief Complaint: [] Principal diagnosis: Alcoholic ketoacidosis with ARF Interval history: Patient was seen and evaluated on morning rounds. He is exhibited marked improvement in his GFR, metabolic acidosis with alcohol ketoacidosis, multiple electrolyte abnormalities, refeeding hypophosphatemia and low-grade rhabdomyolysis. He denies a history of alcohol withdrawal seizures or DTs and his alteration in mental status may have been related to toxic metabolic encephalopathy with acute renal failure electrolyte abnormalities acid-base disturbances plus the use of some sedatives out of concern for impending alcohol withdrawal syndrome. He remains tachycardic and occasionally hypotensive with an echocardiogram that does suggest a reduced LVEF consistent with an alcoholic cardiomyopathy. He also has low-grade thrombocytopenia and an elevated MCV to go along with chronic alcohol use. He did not exhibit any clinical signs or symptoms of Warnicke's Kors[place]off during this stay. On rounds this morning I strongly suggested that he seek a [facility]-based alcohol rehab due to the critical nature of cessation of alcohol intake in this gentleman. Finally displayed rather low blood pressure heart Maunie treatment of his paroxysmal atrial fibrillation using digoxin for rate control and using tiny dos es of captopril for what I believe is his alcoholic cardiomyopathy. Laboratory Tests 02/25/20 02/25/20 04:32 04:32 Sodium 142 Potassium 3.9 Chloride 102 Carbon Dioxide 27 BUN 9 Creatinine 0.9 GFR Calculation 86 Glucose 98 Calcium 8.5 L Magnesium 1.7 Digoxin 0.6 Pertinent ROS: N/A Additional PMFSH (Level 3 Only): N/A Constitutional Vitals: Vital Signs Temp Pulse Resp BP Pulse Ox 37.1 C 112 H 22 124/78 98 02/25/20 08:01 02/22/20 06:21 02/25/20 09:17 02/25/20 08:01 02/25/20 09:17 Period Temp Pulse Resp BP Sys/Lomeli Pulse Ox Last 24 Hr 36.6 C-37.1 C 12-34 56-137/18-116 85-99 Intake and Output 02/24/20 02/25/20 02/25/20 21:59 05:59 13:59 Intake Total 1480 60 Output Total 580 680 320 Balance 900 680 260 Weight 119.3 kg Intake & Output: Intake & Output 02/24/20 02/25/20 02/25/20 21:59 05:59 13:59 Intake Total 1480 60 Output Total 580 680 320 Balance 900 680 260 Weight 119.3 kg Intake: IV 1000 Dextrose 5%-Ns W/20Meq KCl 1, 1000 000 ml @ 50 mls/hr IV .Q20H [facility] Rx#:[id number] Oral 480 60 Output: Urine Catheter Amount 580 680 320 Uretheral (Sanchez) 250 340 Other: Meal 1 bite Nourishment/Supplement name Magic cup Urine Appearance Clear Clear Clear Uretheral (Sanchez) Clear Clear Urine Color Blood Tinged Blood Tinged Light Rosa Uretheral (Sanchez) Blood Tinged Blood Tinged Stool Size Small Stool Color Brown # of times incontinent of 1 Bowels General appearance: disheveled and obese Head Head exam: Present atraumatic and normocephalic Eye Eye exam: Present EOMI and normal appearance; Absent nystagmus Pupils: Present PERRL ENT ENT exam: Present mucous membranes moist Neck Neck exam: Present full ROM and normal inspection; Absent meningismus Respiratory Respiratory exam: Present rhonchi; Absent rales, stridor and wheezes Cardiovascular Cardiovascular exam: Present irregular rhythm (Irregularly irregular), +S1, +S2 and tachycardia; Absent rubs GI/Abdominal GI/Abdominal exam: Present normal bowel sounds and distended; Absent bruit Rectal Rectal exam: Present deferred Additional comments: Sanchez in place Back Exam Back exam: Absent CVA tenderness (L) and CVA tenderness (R) Neurological Exam Neurological exam: Present alert, CN II-XII intact, motor sensory deficit and oriented X3 Additional comments: Gait not tested Psychiatric Psychiatric exam: Present anxious Skin Skin exam: Present normal color; Absent cyanosis and diaphoretic A/P Narrative A/P Narrative: 1) Acute renal failure (ARF): IMPROVED Assessment and plan: Easiest explanation would be dehydration in the setting of hypotension and continued [place] inhibitor administration Unfortunately that will not explain the bulk of the electrolyte abnormalities nor will I did explain the metabolic acidosis Rhabdomyolysis is present but seems to be low-grade I suspect part of what is going on is alcoholic ketoacidosis Must rule out ethylene glycol intoxication given the large metabolic acidosis Calculate his serum osmolar gap was 2X nl at 20, fractional excretion of sodium, look for granular casts as well as calcium oxalate crystals -none reported Continue hydration with mosque of systolic blood pressure around 100 (2) High anion gap metabolic acidosis: Resolving/resolved Assessment and plan: Alcoholic ketoacidosis is my #1 choice Without a component of lactic acidosis Need to rule out any need to rule out any methanol or ethylene glycol contributing though he denies drinking either of these. Improved without Tx of ethylene glycol so this was not the etiology (3) Alcoholism, chronic: Decrease benzo's due to mental status (4) Hypotension: (5) Electrolyte abnormality: Mg rider and KCl rider x 2 IV today due to poor po intake/obtundation (6) Rhabdomyolysis: Assessment and plan: Suspect this is alcohol induced rhabdomyolysis need to check his phosphorus -refeeding hypophosphatemia is present Potassium phosphate 80 mmol ordered for yesterday (7) A. fib with RVR on diltiazem / esmolol Sir Sg Preston would predict alcoholic cardiomyopathy echocardiogram pending with evidence of decreased EF Replace electrolytes Diltiazem /elmolol blood pressure permitting When awake, switch to po carvedilol and ACEi/ARB +/- furosemide...stop HCTZ (3) suspected alcohol related cardiomyopathy with atrial fibrillation Agree with digoxin for rate control, may need full dose for rate control. Start captopril 3.125 mg p.o. every 6 hours holding if blood pressure less than 100 systolic Monitor GFR and electrolytes particularly potassium (4) electrolyte abnormalities Oral magnesium and potassium replacement Continue regular diet with sodium restriction Absolutely no further ill alcohol intake (5) alcohol use and abuse I recommend [facility]-based rehab for without alcohol cessation there is no helping this gentleman. Time Spent With Patient Time: Total time spent is greater than 50% in coordination of care (as documented) at patient's floor/unit and/or counseling patient: Total time spent with greater than 50% in coordination of care (as documented) at patient's floor/unit and/or counseling patient:: 25 - 35 minutes
--- NOTE | 2020-02-25 13:14 | Internal Med Progress Note ---
SUBJECTIVE Subjective Patient information: Note initiated : 02/25/20 at 1:10 pm Service Date, if different from initiated Date: [] Patient: Sindhu Delgado a 69 y/o M admitted on 02/20/20 for Low BP, Not Eating/Drinking. Chief Complaint: [] Mr. Dlegado is a 69 year old M Presents the ED with weakness. History obtained from the patient as well as patient's . Patient is quite sedentary, sitting in chair most of the day, and does not eat very much typically a meal per day per his . About 5 days ago with adequate down their dog who is emotionally attached to and is quite devastating for him. That time he lost interest in eating. He has continued to drink for which he drinks 3-4 drinks of liquor per day although says he did have is much yesterday. Per the he acted a little confused this morning. Did have one episode of diarrhea in the ED. Denies chest pain or shortness of breath or abdominal pain. Denies headache fevers. Per he is always slightly tremulous but he seemed more shaky this morning. She called EMS who arrived and found that he was hypotensive and he had hypoglycemia and was given fluids and glucose. ED he was given almost 3 L of IV fluid. His says he looks better than when he arrived. 02/20 Patient states he is feeling better. No overnight issues. However nurse does state that he has lots of oral secretions and appears that he has a hard time clearing them at times. Will get speech therapy evaluating. Vasopressors off last night. Awaiting follow-up labs. Good urine output. 02/21 Patient seem to have gone and alcohol withdrawal overnight shift. Also went into A. fib RVR and started on diltiazem drip. Additionally patient started the setting and noted to have thick secretions seen like at our time clearing secretions. Patient placed on BiPAP. Patient seems groggy but does awaken and answer questions. 02/22 Patient does not have any new complaints. Blood pressure at times. Heart rate still not controlled. Metoprolol 2.5 IV push. Esmolol drip (on hold due to hypotension) Patient is on 2 L. Potassium was 3.1 AST 110, ALT 104 02/23 Patient does not have any new complaints. Patient has not had a bowel movement for days. Heart rate is still not well controlled because he the blood pressure does not have tolerate metoprolol/esmolol drip. So I started digoxin. I will decrease metoprolol. Nephrology Dr. Nava recommended captopril 3.125mg po every 6 hours for his cardiomyopathy. I will start the med when his BP improved. Potassium was 3.7, BNP 3079 XRay abd -no evidence of fecal impaction. 02/24 The patient feels much better. Patient lines on bed comfortably. Blood pressure is improved, systolic blood pressure greater than 120. Patient still has tachycardia, greater than 110. Sodium 142, potassium 3.9 will increase metoprolol to 25mg bid and esomolol drip as needed. continue digoxin. Review of Systems: denies headache/fever/chills/nausea/vomiting/chest or abdominal pain/cough/dyspnea/diarrhea. Otherwise see above. Principal diagnosis: Alcoholic ketoacidosis with ARF Constitutional Vitals: Vital Signs Temp Pulse Resp BP Pulse Ox 98.7 F 112 H 19 125/93 98 02/25/20 08:01 02/22/20 06:21 02/25/20 11:04 02/25/20 11:01 02/25/20 11:04 Period Temp Pulse Resp BP Sys/Lomeli Pulse Ox Last 24 Hr 97.9 F-98.7 F 12-34 56-149/18-116 85-99 Intake and Output 02/24/20 02/25/20 02/25/20 21:59 05:59 13:59 Intake Total 1480 60 Output Total 580 680 320 Balance 900 -680 -260 Weight 119.3 kg Intake & Output: Intake & Output 02/24/20 02/25/20 02/25/20 21:59 05:59 13:59 Intake Total 1480 60 Output Total 580 680 320 Balance 900 -680 -260 Weight 119.3 kg Intake: IV 1000 Dextrose 5%-Ns W/20Meq KCl 1, 1000 000 ml @ 50 mls/hr IV .Q20H [facility] Rx#:[id number] Oral 480 60 Output: Urine Catheter Amount 580 680 320 Uretheral (Sanchez) 250 340 Other: Meal 1 bite Nourishment/Supplement name Magic cup Urine Appearance Clear Clear Clear Uretheral (Sanchez) Clear Clear Urine Color Blood Tinged Blood Tinged Light Rosa Uretheral (Sanchez) Blood Tinged Blood Tinged Stool Size Small Stool Color Brown # of times incontinent of 1 Bowels Additional findings Additional findings: General: Awake, No acute Distress Eyes/N/T: EOMI, Head/Neck: neck supple, CV: irreg irreg, No murmurs, Pulm: Diminished b/l, no wheezing Abd: soft, nontender, hypoactive BS Ext: no clubbing/cyanosis, b/l LE edema improved with BERYL's Neuro: Alert, no focal deficits, moves all extremities, Skin: warm/dry OBJ DATA Labs CBC & Chem 7: 02/25/20 04:32 02/25/20 04:32 Labs: Abnormal Lab Results 02/25/20 02/25/20 02/24/20 04:32 04:32 05:30 RBC 3.13 L 3.28 L Hgb 11.2 L 11.7 L Hct 33.7 L 35.3 L MCV 107.7 H 107.6 H MCH 35.8 H 35.7 H RDW 14.6 H Plt Count 134 L Lymph % (Auto) 10.2 L 11.6 L Fisher % (Auto) 23.9 H 21.3 H Lymph # (Auto) 0.77 L 0.89 L Fisher # (Auto) 1.80 H 1.64 H Potassium Glucose Uric Acid Calcium 8.5 L Total Bilirubin Direct Bilirubin GGT AST 80 H ALT 87 H Alkaline Phosphatase 152 H Lactate Dehydrogenase NT-Pro-B Natriuret Pep Total Protein 5.5 L Albumin 2.5 L Albumin/Globulin Ratio 0.8 L Urine Protein Urine Ketones Urine Occult Blood Urine Urobilinogen Ur Leukocyte Esterase Urine RBC Urine WBC Urine Mucus 02/24/20 02/23/20 02/23/20 05:30 17:52 05:29 RBC Hgb Hct MCV MCH RDW Plt Count Lymph % (Auto) Fisher % (Auto) Lymph # (Auto) Fisher # (Auto) Potassium 3.1 L Glucose 108 H 137 H Uric Acid 8.9 H Calcium 8.3 L 8.2 L Total Bilirubin 1.2 H Direct Bilirubin 0.8 H GGT 471 H AST 94 H 110 H ALT 102 H 104 H Alkaline Phosphatase 160 H 162 H Lactate Dehydrogenase 1096 H NT-Pro-B Natriuret Pep 3079.0 H Total Protein 5.6 L 5.6 L Albumin 2.6 L 2.7 L Albumin/Globulin Ratio 0.9 L 0.9 L Urine Protein 30 A Urine Ketones 5 A Urine Occult Blood >=1.0 A Urine Urobilinogen 4.0 A Ur Leukocyte Esterase 25 A Urine RBC > 182 H Urine WBC 9 H Urine Mucus Few A 02/23/20 05:29 RBC 3.31 L Hgb 11.8 L Hct 33.3 L MCV 100.6 H MCH 35.6 H RDW Plt Count 109 L Lymph % (Auto) 8.4 L Fisher % (Auto) 13.1 H Lymph # (Auto) 0.71 L Fisher # (Auto) 1.11 H Potassium Glucose Uric Acid Calcium Total Bilirubin Direct Bilirubin GGT AST ALT Alkaline Phosphatase Lactate Dehydrogenase NT-Pro-B Natriuret Pep Total Protein Albumin Albumin/Globulin Ratio Urine Protein Urine Ketones Urine Occult Blood Urine Urobilinogen Ur Leukocyte Esterase Urine RBC Urine WBC Urine Mucus Meds: Medications Albuterol/Ipratropium (Duoneb) 3 ml NEB Q4HRT PRN PRN Reason: dysnpea Atorvastatin Calcium (Lipitor) 40 mg PO QDAY [facility] Last Admin: 02/25/20 10:00 Dose: 40 mg Documented by: Captopril (Capoten) 3.125 mg PO TID [facility] Last Admin: 02/25/20 10:01 Dose: 3.125 mg Documented by: Ceftriaxone Sodium (Rocephin) 1 gm IV Q24H [facility]; Protocol Last Admin: 02/25/20 10:13 Dose: 1 gm Documented by: Diazepam (Valium) 5 mg PO Q8H PRN PRN Reason: Alcohol Withdrawal Last Admin: 02/24/20 16:46 Dose: 5 mg Documented by: Digoxin (Lanoxin) 125 mcg PO DAILY [facility] Last Admin: 02/25/20 09:53 Dose: Not Given Documented by: Famotidine (Pepcid) 20 mg IV HS [facility] Last Admin: 02/24/20 21:48 Dose: 20 mg Documented by: Folic Acid (Folic Acid) 1 mg PO DAILY [facility] Last Admin: 02/25/20 10:00 Dose: 1 mg Documented by: Heparin Sodium (Porcine) (Heparin) 5,000 unit SQ Q12 [facility] Last Admin: 02/25/20 10:00 Dose: 5,000 unit Documented by: Esmolol HCl 2,500 mg/ Premix 250 mls @ 35.266 mls/hr IV .Q7H6M [facility]; Protocol Last Admin: 02/25/20 05:54 Dose: Not Given Documented by: Magnesium Sulfate (Magnesium Sulfate) 2 gm in 50 mls @ 25 mls/hr IV PRN PRN PRN Reason: Magnesium < Or = 1.8 Potassium Chloride 40 meq/ (Dextrose) 520 mls @ 130 mls/hr IV PRN PRN PRN Reason: potassium less than 3.0 Sodium Chloride (Sodium Chloride 0.9%) 250 mls @ 20 mls/hr IV .[id number] [facility] Last Admin: 02/25/20 05:54 Dose: Not Given Documented by: Iron Carb/Multivit/Frontier/Folic Acid (Multivitamin W/Minerals) 1 tab PO DAILY [facility] Last Admin: 02/25/20 10:00 Dose: 1 tab Documented by: Lactulose (Cephulac) 10 gm PO DAILY PRN PRN Reason: Constipation Lorazepam (Ativan) 0.5 mg IV Q4HP PRN PRN Reason: ANXIETY/SEDATION Metoprolol Tartrate (Lopressor) 2.5 mg IV Q5M PRN PRN Reason: Tachyarrhythmias Metoprolol Tartrate (Lopressor) 25 mg PO BID [facility] Last Admin: 02/25/20 10:03 Dose: 25 mg Documented by: Midodrine (Midodrine Hcl) 5 mg PO TID@0800,1200,1700 PRN PRN Reason: Hypotension Ondansetron HCl (Zofran) 4 mg IV Q4-6HP PRN PRN Reason: Nausea And Vomiting Sertraline HCl (Zoloft) 50 mg PO QDAY [facility] Last Admin: 02/25/20 10:00 Dose: 50 mg Documented by: Sodium Chloride (Saline Flush) 10 ml IV Q8 [facility] Last Admin: 02/25/20 07:16 Dose: 10 ml Documented by: Thiamine HCl (Vitamin B1) 100 mg PO DAILY [facility] Last Admin: 02/25/20 10:00 Dose: 100 mg Documented by: A/P Narrative A/P Narrative: 1. Acute hypoxic respiratory failure -Pulse ox -Oxygen therapy, to keep oxygen saturation greater than 92% 2. Hypovolemic shock - off levophed Hypotension, impvoring -As per , his blood pressures been running on the low side -Gentle IV fluid -Discontinued Midodrin as needed -metoprolol 25mg bid 3. SULLY - resolved 4. Alcoholic ketoacidosis 5. High anion gap metabolic acidosis 6. Multiple electrolyte abnormalities 7. Hypophosphatemia and hypokalemia - refeeding syndrome [employer] Professor on board, really appreciate it 8. Aspiration: pt likely aspirating on his excessive mucus production. scopolomine patch 9. ETOH abuse with W/D: MVI/Thiamine/Folate CIWA protocol 10. thrombocytopenia: 2/2 etoh -Repeat CBC in morning 11. Hypoglycemia: 2/2 poor diet + chronic etoh D5+normal saline+ potassium chloride 12. Hyponatremia/chloride: 2/2 beer potomania. improving 13. Elevated CPK: 2/2 immobilization/etoh -no granular 14. Transaminitis, mild: 2/2 hypotension/?etoh component 15. FTT/Malnutrition: 2/2 chronic alcoholism + recent life event. prealbumin 12 16. Afib RVR -chadsvasc=2, I would not like to start anticoagulation at this moment based on his a current condition and hematuria. -Digoxin 125mcg daily. Check digoxin level in the morning -metoprolol 25 mg twice daily Esmolol drip-as needed 17. UTI? Hematuria Ceftriaxone 18. ICU Delerium: given chronic alcoholism I suspect there is some underlying cerebral damage *Poor long-term prognosis in chronic etoh pt/ot/ST ppx: heparin/home ppi Time Spent With Patient Time: Total time spent is greater than 50% in coordination of care (as docume nted) at patient's floor/unit and/or counseling patient: QUALITY VTE Deep Vein Thrombosis/Pulmonary Embolism Present on Admission: No
[2020-02-25] MEDS: FAMOTIDINE/PF 20 MG/2 ML VIAL IV SCH (21:15)
[2020-02-26] MEDS: ESMOLOL 2,500 MG in PREMIX 1 BAG IV SCH ×7 (00:46→23:53)
[2020-02-26] MEDS: 0.9 % SODIUM CHLORIDE 250 ML IV SCH ×3 (05:17→17:16)
[2020-02-26 06:39] LABS: Basophils # (Auto) 0.07 K/mcL (0.00-0.20); Basophils % (Auto) 0.9 % (0.0-2.0); Eosinophils # (Auto) 0.09 K/mcL (0.00-0.70); Eosinophils % (Auto) 1.2 % (0.0-7.0); Hematocrit 34.2 % (41.0-55.0); Hemoglobin 11.3 g/dL (13.5-16.5); Lymphocytes # (Auto) 0.78 K/mcL (1.50-4.80); Lymphocytes % (Auto) 10.3 % (15.0-49.0); Mean Cell Volume 107.9 fL (80.0-100.0); Mean Platelet Volume 10.2 fL (7.4-10.4); Monocytes # (Auto) 1.77 K/mcL (0.10-0.90); Monocytes % (Auto) 23.5 % (1.0-12.0); Neutrophils % (Auto) 64.1 % (38.0-78.0); Platelet Count 196 K/mcL (140-440); RBC 3.17 M/mcL (4.50-5.90); Red Cell Distribution Width 14.7 % (11.5-14.5); WBC 7.5 K/mcL (4.5-11.0)
[2020-02-26 07:01] LABS: ALT/SGPT 79 U/L (<40); AST/SGOT 73 U/L (<40); Albumin 2.7 gm/dL (3.2-5.2); Albumin/Globulin Ratio 0.9 (1.0-2.3); Alkaline Phosphatase 149 U/L (39-117); Bilirubin,Total 0.6 mg/dL (0.1-1.0); Blood Urea Nitrogen 8 mg/dL (8-23); Calcium 9.4 mg/dL (8.6-10.4); Carbon Dioxide 28 mmol/L (22-30); Chloride 99 mmol/L (96-108); Globulin 2.9 gm/dL (2.2-3.7); Glomerular Filtration Rate 86; Glucose 91 mg/dL (70-105)
[2020-02-26] MEDS: SERTRALINE 50 MG TABLET PO SCH (08:49)
[2020-02-26] MEDS: FOLIC ACID 1 MG TABLET PO SCH (08:49)
[2020-02-26] MEDS: MULTIVIT,THER IRON,CA,FA & MIN 1 TABLET PO SCH (08:49)
[2020-02-26] MEDS: METOPROLOL TARTRATE 50 MG TABLET PO SCH ×2 (08:49→21:44)
[2020-02-26] MEDS: THIAMINE 100 MG TABLET PO SCH (08:49)
[2020-02-26] MEDS: ENOXAPARIN 40 MG/0.4 ML SYRINGE SQ SCH (08:49)
[2020-02-26] MEDS: ATORVASTATIN 40 MG TABLET PO SCH (08:49)
[2020-02-26] MEDS: 0.9 % SODIUM CHLORIDE 10 ML SYRINGE IV SCH ×3 (08:50→21:50)
[2020-02-26] MEDS: cefTRIAXone 1 GM VIAL IV SCH (08:56)
[2020-02-26] MEDS: CAPTOPRIL 12.5 MG TABLET PO SCH ×2 (08:56→16:14)
--- NOTE | 2020-02-26 08:56 | Nephrology Progress Note ---
SUBJECTIVE Subjective Patient information: Note initiated : 02/26/20 at 8:53 am Service Date, if different from initiated Date: [] Patient: Sindhu Delgado 69 y/o M admitted on 02/20/20 for Low BP, Not Eating/Drinking. Chief Complaint: [not eating or drinking] Principal diagnosis: Alcoholic ketoacidosis with ARF Interval history: Interval history: Patient was seen and evaluated on morning rounds. He is exhibited marked improvement in his GFR, metabolic acidosis with alcohol ketoacidosis, multiple electrolyte abnormalities, refeeding hypophosphatemia and low-grade rhabdomyolysis. He denies a history of alcohol withdrawal seizures or DTs and his alteration in mental status may have been related to toxic metabolic encephalopathy with acute renal failure electrolyte abnormalities acid-base disturbances plus the use of some sedatives out of concern for impending alcohol withdrawal syndrome. He remains tachycardic and occasionally hypotensive with an echocardiogram that does suggest a reduced LVEF consistent with an alcoholic cardiomyopathy. He also has low-grade thrombocytopenia and an elevated MCV to go along with chronic alcohol use. He did not exhibit any clinical signs or symptoms of Warnicke's [place]ors[place]off during this stay. On rounds this morning I strongly suggested that he seek a [facility]-based alcohol rehab due to the critical nature of cessation of alcohol intake in this gentleman. BP elevated and tachycaric with elevated proBNP. Add furosemide 20 mg po BID, change captopril to lisinopril 10 mg po qHS and continue dig 0.25 mg and metoprolol, Avoid thiazides. Today's labs: Laboratory Tests 02/26/20 02/26/20 04:32 04:32 WBC 7.5 Hgb 11.3 L Hct 34.2 L MCV 107.9 H Plt Count 196 Sodium 141 Potassium 3.6 Chloride 99 Carbon Dioxide 28 Anion Gap 14.0 BUN 8 Creatinine 0.9 GFR Calculation 86 Glucose 91 Calcium 9.4 Total Bilirubin 0.6 AST 73 H ALT 79 H Alkaline Phosphatase 149 H NT-Pro-B Natriuret Pep 5843.0 H Total Protein 5.6 L Albumin 2.7 L Globulin 2.9 Albumin/Globulin Ratio 0.9 L Pertinent ROS: NTA Additional PMFSH (Level 3 Only): Reviewed NTA Constitutional Vitals: Vital Signs Temp Pulse Resp BP Pulse Ox 36.9 C 112 H 21 147/121 94 02/25/20 16:01 02/22/20 06:21 02/26/20 06:02 02/26/20 06:02 02/26/20 07:16 Period Temp Pulse Resp BP Sys/Lomeli Pulse Ox Last 24 Hr 36.9 C 15-29 98-202/55-183 80-100 Intake and Output 02/25/20 02/26/20 02/26/20 21:59 05:59 13:59 Intake Total 240 Output Total 200 950 0 Balance 40 -950 0 Weight 117 kg Intake & Output: Intake & Output 02/25/20 02/26/20 02/26/20 21:59 05:59 13:59 Intake Total 240 Output Total 200 950 0 Balance 40 -950 0 Weight 117 kg Intake: Oral 240 Output: Urine Catheter Amount 200 950 0 Other: Meal Dinner Percent of Meal Consumed 0% Urine Appearance Clear Clear Uretheral (Sanchez) Clear Clear Clear Urine Color Light Rosa Dark Yellow Uretheral (Sanchez) Dark Yellow Dark Yellow Dark Yellow Urine Odor Uretheral (Sanchez) Normal Stool Size Moderate Small Stool Color Brown Brown Stool Consistency Soft Soft # Bowel Movements 2 1 # of times incontinent of 2 1 Bowels General appearance: disheveled, no acute distress and obese Exam: Has been up in chair Head Head exam: Present atraumatic and normocephalic Eye Eye exam: Present EOMI, normal appearance and PERRL; Absent nystagmus and scleral icterus Pupils: Present PERRL ENT ENT exam: Present mucous membranes moist Neck Neck exam: Present full ROM and normal inspection; Absent meningismus Respiratory Respiratory exam: Present rhonchi; Absent rales, respiratory distress and stridor Cardiovascular Cardiovascular exam: Present irregular rhythm (irreg/irreg), +S1, +S2 and tachycardia; Absent gallop and JVD GI/Abdominal GI/Abdominal exam: Present normal bowel sounds and soft; Absent bruit, guarding and tenderness Rectal Rectal exam: Present deferred Additional comments: Sanchez removed Extremities Exam Extremities exam: Present pedal edema; Absent calf tenderness Back Exam Back exam: Absent CVA tenderness (L) and CVA tenderness (R) Neurological Exam Neurological exam: Present alert and CN II-XII intact Psychiatric Psychiatric exam: Present agitated and anxious Skin Skin exam: Present intact and pallor A/P Narrative A/P Narrative: 1) Acute renal failure (ARF): IMPROVED Assessment and plan: Easiest explanation would be dehydration in the setting of hypotension and continued [place] inhibitor administration Unfortunately that will not explain the bulk of the electrolyte abnormalities nor will I did explain the metabolic acidosis Rhabdomyolysis is present but seems to be low-grade I suspect part of what is going on is alcoholic ketoacidosis Must rule out ethylene glycol intoxication given the large metabolic acidosis Calculate his serum osmolar gap was 2X nl at 20, fractional excretion of sodium, look for granular casts as well as calcium oxalate crystals -none reported Continue hydration with holiness of systolic blood pressure around 100 (2) High anion gap metabolic acidosis: Resolving/resolved Assessment and plan: Alcoholic ketoacidosis is my #1 choice Without a component of lactic acidosis Need to rule out any need to rule out any methanol or ethylene glycol contributing though he denies drinking either of these. Improved without Tx of ethylene glycol so this was not the etiology (3) Alcoholism, chronic: Decrease benzo's due to mental status (4) Hypotension: (5) Electrolyte abnormality: Mg rider and KCl rider x 2 IV today due to poor po intake/obtundation (6) Rhabdomyolysis: Assessment and plan: Suspect this is alcohol induced rhabdomyolysis need to check his phosphorus -refeeding hypophosphatemia is present Potassium phosphate 80 mmol ordered for yesterday (7) A. fib with RVR on diltiazem / esmolol Sir Sg Preston would predict alcoholic cardiomyopathy echocardiogram pending with evidence of decreased EF Replace electrolytes Diltiazem /elmolol blood pressure permitting When awake, switch to po carvedilol and ACEi/ARB +/- furosemide...stop HCTZ (3) suspected alcohol related cardiomyopathy with atrial fibrillation Agree with digoxin for rate control, imcreased to full dose for rate control. Continue to titrate Metroprolol tartrate as tolerated. Currently 50 mg po BID Captopril 3.125 mg p.o. every 6 hours holding if blood pressure less than 100 systolic can now be changed to Lisinopril 10 mg po qHS and dose titreted as tolerated by BP, K level, GFR and proBNP. Lasix 20 mg po BID. Do not combine thiazide and loop diuretic. Monitor GFR and electrolytes particularly potassium (4) electrolyte abnormalities Oral magnesium and potassium replacement Continue regular diet with sodium restriction Absolutely no further ill alcohol intake (5) alcohol use and abuse I recommend [facility]-based rehab for without alcohol cessation there is no helping this gentleman. There are [facility] the [facility] NEPHROLOGY TO SIGN OFF FOR NOW. RECONSULT NEEDED Time Spent With Patient Time: Total time spent is greater than 50% in coordination of care (as documented) at patient's floor/unit and/or counseling patient: Total time spent with greater than 50% in coordination of care (as documented) at patient's floor/unit and/or counseling patient:: 25 - 35 minutes
[2020-02-26] MEDS: DIGOXIN 125 MCG TABLET PO SCH (12:56)
--- NOTE | 2020-02-26 14:14 | Internal Med Progress Note ---
SUBJECTIVE Subjective Patient information: Note initiated : 02/26/20 at 2:13 pm Service Date, if different from initiated Date: [] Patient: Sindhu Delgado a 69 y/o M admitted on 02/20/20 for Low BP, Not Eating/Drinking. Chief Complaint: [] Mr. Delgado is a 69 year old M Presents the ED with weakness. History obtained from the patient as well as patient's . Patient is quite sedentary, sitting in chair most of the day, and does not eat very much typically a meal per day per his . About 5 days ago with adequate down their dog who is emotionally attached to and is quite devastating for him. That time he lost interest in eating. He has continued to drink for which he drinks 3-4 drinks of liquor per day although says he did have is much yesterday. Per the he acted a little confused this morning. Did have one episode of diarrhea in the ED. Denies chest pain or shortness of breath or abdominal pain. Denies headache fevers. Per he is always slightly tremulous but he seemed more shaky this morning. She called EMS who arrived and found that he was hypotensive and he had hypoglycemia and was given fluids and glucose. ED he was given almost 3 L of IV fluid. His says he looks better than when he arrived. 02/20 Patient states he is feeling better. No overnight issues. However nurse does state that he has lots of oral secretions and appears that he has a hard time clearing them at times. Will get speech therapy evaluating. Vasopressors off last night. Awaiting follow-up labs. Good urine output. 02/21 Patient seem to have gone and alcohol withdrawal overnight shift. Also went into A. fib RVR and started on diltiazem drip. Additionally patient started the setting and noted to have thick secretions seen like at our time clearing secretions. Patient placed on BiPAP. Patient seems groggy but does awaken and answer questions. 02/22 Patient does not have any new complaints. Blood pressure at times. Heart rate still not controlled. Metoprolol 2.5 IV push. Esmolol drip (on hold due to hypotension) Patient is on 2 L. Potassium was 3.1 AST 110, ALT 104 02/23 Patient does not have any new complaints. Patient has not had a bowel movement for days. Heart rate is still not well controlled because he the blood pressure does not have tolerate metoprolol/esmolol drip. So I started digoxin. I will decrease metoprolol. Nephrology Dr. Nava recommended captopril 3.125mg po every 6 hours for his cardiomyopathy. I will start the med when his BP improved. Potassium was 3.7, BNP 3079 XRay abd -no evidence of fecal impaction. 02/24 The patient feels much better. Patient lines on bed comfortably. Blood pressure is improved, systolic blood pressure greater than 120. Patient still has tachycardia, greater than 110. Sodium 142, potassium 3.9 will increase metoprolol to 25mg bid and esomolol drip as needed. continue digoxin. 02/25 Patient feels better. Denies nausea, vomiting, fever, chills, headache, or chest pain. No longer has a hypotension. But patient heart rate still not controlled. Patient still needs oxygen BNP increased to 5843 from 3079. IV is on hold. Echo on 02/21/20 showed EF: calculated 46%, visual EF 55 to 60% Digoxin increased to 0.25 mg daily. Increase metoprolol to 50 mg twice daily. Esmolol drip as needed Review of Systems: denies headache/fever/chills/nausea/vomiting/chest or abdominal pain/cough/dys pnea/diarrhea. Otherwise see above. Principal diagnosis: Alcoholic ketoacidosis with ARF Constitutional Vitals: Vital Signs Temp Pulse Resp BP Pulse Ox 97.5 F 112 H 20 142/92 97 02/26/20 12:01 02/22/20 06:21 02/26/20 14:09 02/26/20 14:02 02/26/20 14:09 Period Temp Pulse Resp BP Sys/Lomeli Pulse Ox Last 24 Hr 97.5 F-98.5 F 15-29 107-202/55-183 80-100 Intake and Output 02/26/20 02/26/20 02/26/20 05:59 13:59 21:59 Output Total 950 0 Balance -950 0 Intake & Output: Intake & Output 02/26/20 02/26/20 02/26/20 05:59 13:59 21:59 Output Total 950 0 Balance -950 0 Output: Urine Catheter Amount 950 0 Other: Meal Breakfast Percent of Meal Consumed 25% Urine Appearance Clear Uretheral (Sanchez) Clear Clear Urine Color Dark Yellow Uretheral (Sanchez) Dark Yellow Dark Yellow Stool Size Moderate Small Stool Color Brown Brown Stool Consistency Soft Soft # Bowel Movements 2 1 # of times incontinent of 2 1 Bowels Additional findings Additional findings: General: Awake, No acute Distress Eyes/N/T: EOMI, Head/Neck: neck supple, CV: irreg irreg, No murmurs, Pulm: Diminished b/l, no wheezing Abd: soft, nontender, hypoactive BS Ext: no clubbing/cyanosis, b/l LE edema improved with BERYL's Neuro: Alert, no focal deficits, moves all extremities, Skin: warm/dry OBJ DATA Labs CBC & Chem 7: 02/26/20 04:32 02/26/20 04:32 Labs: Abnormal Lab Results 02/26/20 02/26/20 02/25/20 04:32 04:32 04:32 RBC 3.17 L Hgb 11.3 L Hct 34.2 L MCV 107.9 H MCH 35.6 H RDW 14.7 H Plt Count Lymph % (Auto) 10.3 L [place] % (Auto) 23.5 H Lymph # (Auto) 0.78 L [place] # (Auto) 1.77 H Glucose Calcium 8.5 L AST 73 H 80 H ALT 79 H 87 H Alkaline Phosphatase 149 H 152 H NT-Pro-B Natriuret Pep 5843.0 H Total Protein 5.6 L 5.5 L Albumin 2.7 L 2.5 L Albumin/Globulin Ratio 0.9 L 0.8 L Urine Protein Urine Ketones Urine Occult Blood Urine Urobilinogen Ur Leukocyte Esterase Urine RBC Urine WBC Urine Mucus 02/25/20 02/24/20 02/24/20 04:32 05:30 05:30 RBC 3.13 L 3.28 L Hgb 11.2 L 11.7 L Hct 33.7 L 35.3 L MCV 107.7 H 107.6 H MCH 35.8 H 35.7 H RDW 14.6 H Plt Count 134 L Lymph % (Auto) 10.2 L 11.6 L [place] % (Auto) 23.9 H 21.3 H Lymph # (Auto) 0.77 L 0.89 L [place] # (Auto) 1.80 H 1.64 H Glucose 108 H Calcium 8.3 L AST 94 H ALT 102 H Alkaline Phosphatase 160 H NT-Pro-B Natriuret Pep 3079.0 H Total Protein 5.6 L Albumin 2.6 L Albumin/Globulin Ratio 0.9 L Urine Protein Urine Ketones Urine Occult Blood Urine Urobilinogen Ur Leukocyte Esterase Urine RBC Urine WBC Urine Mucus 02/23/20 17:52 RBC Hgb Hct MCV MCH RDW Plt Count Lymph % (Auto) [place] % (Auto) Lymph # (Auto) [place] # (Auto) Glucose Calcium AST ALT Alkaline Phosphatase NT-Pro-B Natriuret Pep Total Protein Albumin Albumin/Globulin Ratio Urine Protein 30 A Urine Ketones 5 A Urine Occult Blood >=1.0 A Urine Urobilinogen 4.0 A Ur Leukocyte Esterase 25 A Urine RBC > 182 H Urine WBC 9 H Urine Mucus Few A Meds: Medications Albuterol/Ipratropium (Duoneb) 3 ml NEB Q4HRT PRN PRN Reason: dysnpea Atorvastatin Calcium (Lipitor) 40 mg PO QDAY [facility] Last Admin: 02/26/20 08:49 Dose: 40 mg Documented by: Captopril (Capoten) 3.125 mg PO TID [facility] Last Admin: 02/26/20 08:56 Dose: 3.125 mg Documented by: Ceftriaxone Sodium (Rocephin) 1 gm IV Q24H [facility]; Protocol Last Admin: 02/26/20 08:56 Dose: 1 gm Documented by: Diazepam (Valium) 5 mg PO Q8H PRN PRN Reason: Alcohol Withdrawal Last Admin: 02/24/20 16:46 Dose: 5 mg Documented by: Digoxin (Lanoxin) 250 mcg PO DAILY@1400 [facility] Last Admin: 02/26/20 12:56 Dose: 250 mcg Documented by: Enoxaparin Sodium (Lovenox) 40 mg SQ DAILY [facility] Last Admin: 02/26/20 08:49 Dose: 40 mg Documented by: Famotidine (Pepcid) 20 mg IV HS [facility] Last Admin: 02/25/20 21:15 Dose: 20 mg Documented by: Folic Acid (Folic Acid) 1 mg PO DAILY [facility] Last Admin: 02/26/20 08:49 Dose: 1 mg Documented by: Esmolol HCl 2,500 mg/ Premix 250 mls @ 35.266 mls/hr IV .Q7H6M [facility]; Protocol Last Admin: 02/26/20 13:03 Dose: Not Given Documented by: Magnesium Sulfate (Magnesium Sulfate) 2 gm in 50 mls @ 25 mls/hr IV PRN PRN PRN Reason: Magnesium < Or = 1.8 Potassium Chloride 40 meq/ (Dextrose) 520 mls @ 130 mls/hr IV PRN PRN PRN Reason: potassium less than 3.0 Sodium Chloride (Sodium Chloride 0.9%) 250 mls @ 20 mls/hr IV .[id number] [facility] Last Admin: 02/26/20 05:17 Dose: Not Given Documented by: Iron Carb/Multivit/[place]/Folic Acid (Multivitamin W/Minerals) 1 tab PO DAILY [facility] Last Admin: 02/26/20 08:49 Dose: 1 tab Documented by: Lactulose (Cephulac) 10 gm PO DAILY PRN PRN Reason: Constipation Lorazepam (Ativan) 0.5 mg IV Q4HP PRN PRN Reason: ANXIETY/SEDATION Metoprolol Tartrate (Lopressor) 2.5 mg IV Q5M PRN PRN Reason: Tachyarrhythmias Last Admin: 02/26/20 02:42 Dose: 2.5 mg Documented by: Metoprolol Tartrate (Lopressor) 50 mg PO BID [facility] Last Admin: 02/26/20 08:49 Dose: 50 mg Documented by: Ondansetron HCl (Zofran) 4 mg IV Q4-6HP PRN PRN Reason: Nausea And Vomiting Sertraline HCl (Zoloft) 50 mg PO QDAY [facility] Last Admin: 02/26/20 08:49 Dose: 50 mg Documented by: Sodium Chloride (Saline Flush) 10 ml IV Q8 [facility] Last Admin: 02/26/20 13:02 Dose: 10 ml Documented by: Thiamine HCl (Vitamin B1) 100 mg PO DAILY [facility] Last Admin: 02/26/20 08:49 Dose: 100 mg Documented by: A/P Narrative A/P Narrative: 1. Acute hypoxic respiratory failure -Pulse ox -Oxygen therapy, to keep oxygen saturation greater than 92% 2. Hypovolemic shock - off levophed Hypotension, resolved -As per , his blood pressures been running on the low side -IV fluid is on hold -Discontinued Midodrin as needed -Increased metoprolol 50 mg bid 3. SULLY - resolved 4. Alcoholic ketoacidosis 5. High anion gap metabolic acidosis 6. Multiple electrolyte abnormalities 7. Hypophosphatemia and hypokalemia - refeeding syndrome Gore Maker on board, really appreciate it 8. Aspiration: pt likely aspirating on his excessive mucus production. scopolomine patch 9. ETOH abuse with W/D: MVI/Thiamine/Folate CIWA protocol 10. thrombocytopenia: 2/2 etoh -Repeat CBC in morning 11. Hypoglycemia: 2/2 poor diet + chronic etoh Monitor 12. Hyponatremia/chloride: 2/2 beer potomania. Resolved 13. Elevated CPK: 2/2 immobilization/etoh -no granular 14. Transaminitis, mild: 2/2 hypotension/?etoh component 15. FTT/Malnutrition: 2/2 chronic alcoholism + recent life event. prealbumin 12 16. Afib RVR -chadsvasc=2, I would not like to start anticoagulation at this moment based on his a current condition and hematuria. -Digoxin 0.25mg daily. Check digoxin level in the morning -Increased metoprolol to 50 mg twice daily Esmolol drip-as needed 17. UTI? Hematuria Ceftriaxone 18. ICU Delerium: given chronic alcoholism I suspect there is some underlying cerebral damage *Poor long-term prognosis in chronic etoh pt/ot/ST ppx: heparin/home ppi Time Spent With Patient Time: Total time spent is greater than 50% in coordination of care (as documented) at patient's floor/unit and/or counseling patient: QUALITY VTE Deep Vein Thrombosis/Pulmonary Embolism Present on Admission: No
[2020-02-26] MEDS: FUROSEMIDE 20 MG TABLET PO SCH (17:50)
[2020-02-26] MEDS: LISINOPRIL 10 MG TABLET PO SCH (21:39)
[2020-02-26] MEDS: FAMOTIDINE/PF 20 MG/2 ML VIAL IV SCH (21:49)
[2020-02-27] MEDS: 0.9 % SODIUM CHLORIDE 10 ML SYRINGE IV SCH ×3 (05:49→21:05)
[2020-02-27 06:52] LABS: Basophils # (Auto) 0.03 K/mcL (0.00-0.20); Basophils % (Auto) 0.4 % (0.0-2.0); Eosinophils # (Auto) 0.11 K/mcL (0.00-0.70); Eosinophils % (Auto) 1.6 % (0.0-7.0); Hematocrit 35.2 % (41.0-55.0); Lymphocytes # (Auto) 0.83 K/mcL (1.50-4.80); Mean Cell Volume 113.9 fL (80.0-100.0); Mean Corpuscular HGB Conc 31.3 g/dL (31.0-36.0); Mean Platelet Volume 9.9 fL (7.4-10.4); Monocytes # (Auto) 1.45 K/mcL (0.10-0.90); Platelet Count 195 K/mcL (140-440); RBC 3.09 M/mcL (4.50-5.90); Red Cell Distribution Width 15.1 % (11.5-14.5); WBC 6.9 K/mcL (4.5-11.0)
[2020-02-27 07:36] LABS: ALT/SGPT 66 U/L (<40); AST/SGOT 67 U/L (<40); Albumin 2.4 gm/dL (3.2-5.2); Albumin/Globulin Ratio 0.8 (1.0-2.3); Alkaline Phosphatase 127 U/L (39-117); Bilirubin,Total 0.5 mg/dL (0.1-1.0); Blood Urea Nitrogen 8 mg/dL (8-23); Calcium 8.8 mg/dL (8.6-10.4); Carbon Dioxide 27 mmol/L (22-30); Chloride 99 mmol/L (96-108); Globulin 3.2 gm/dL (2.2-3.7); Glomerular Filtration Rate 91; Glucose 82 mg/dL (70-105)
[2020-02-27] MEDS ORDERED: MAGNESIUM SULFATE 8.12 MEQ in DEXTROSE 5% IN WATER 50 ML IV ONE (07:51)
[2020-02-27] MEDS: SERTRALINE 50 MG TABLET PO SCH (10:07)
[2020-02-27] MEDS: METOPROLOL TARTRATE 25 MG TABLET PO SCH ×2 (10:07→21:05)
[2020-02-27] MEDS: MULTIVIT,THER IRON,CA,FA & MIN 1 TABLET PO SCH (10:07)
[2020-02-27] MEDS: FUROSEMIDE 20 MG TABLET PO SCH ×2 (10:08→16:41)
[2020-02-27] MEDS: ATORVASTATIN 40 MG TABLET PO SCH (10:09)
[2020-02-27] MEDS: ENOXAPARIN 40 MG/0.4 ML SYRINGE SQ SCH (10:10)
[2020-02-27] MEDS: FOLIC ACID 1 MG TABLET PO SCH (10:10)
[2020-02-27] MEDS: THIAMINE 100 MG TABLET PO SCH (10:10)
[2020-02-27] MEDS: cefTRIAXone 1 GM VIAL IV SCH (10:22)
[2020-02-27] MEDS: 0.9 % SODIUM CHLORIDE 250 ML IV SCH ×2 (10:27→20:44)
[2020-02-27] MEDS: ESMOLOL 2,500 MG in PREMIX 1 BAG IV SCH ×2 (10:30→14:13)
--- NOTE | 2020-02-27 11:47 | Internal Med Progress Note ---
SUBJECTIVE Subjective Patient information: Note initiated : 02/27/20 at 11:46 am Service Date, if different from initiated Date: [] Patient: Sindhu Delgado a 69 y/o M admitted on 02/20/20 for Low BP, Not Eating/Drinking. Chief Complaint: [] Mr. Delgado is a 69 year old M Presents the ED with weakness. History obtained from the patient as well as patient's . Patient is quite sedentary, sitting in chair most of the day, and does not eat very much typically a meal per day per his . About 5 days ago with adequate down their dog who is emotionally attached to and is quite devastating for him. That time he lost interest in eating. He has continued to drink for which he drinks 3-4 drinks of liquor per day although says he did have is much yesterday. Per the he acted a little confused this morning. Did have one episode of diarrhea in the ED. Denies chest pain or shortness of breath or abdominal pain. Denies headache fevers. Per he is always slightly tremulous but he seemed more shaky this morning. She called EMS who arrived and found that he was hypotensive and he had hypoglycemia and was given fluids and glucose. ED he was given almost 3 L of IV fluid. His says he looks better than when he arrived. 02/20 Patient states he is feeling better. No overnight issues. However nurse does state that he has lots of oral secretions and appears that he has a hard time clearing them at times. Will get speech therapy evaluating. Vasopressors off last night. Awaiting follow-up labs. Good urine output. 02/21 Patient seem to have gone and alcohol withdrawal overnight shift. Also went into A. fib RVR and started on diltiazem drip. Additionally patient started the setting and noted to have thick secretions seen like at our time clearing secretions. Patient placed on BiPAP. Patient seems groggy but does awaken and answer questions. 02/22 Patient does not have any new complaints. Blood pressure at times. Heart rate still not controlled. Metoprolol 2.5 IV push. Esmolol drip (on hold due to hypotension) Patient is on 2 L. Potassium was 3.1 AST 110, ALT 104 02/23 Patient does not have any new complaints. Patient has not had a bowel movement for days. Heart rate is still not well controlled because he the blood pressure does not have tolerate metoprolol/esmolol drip. So I started digoxin. I will decrease metoprolol. Nephrology Dr. Nava recommended captopril 3.125mg po every 6 hours for his cardiomyopathy. I will start the med when his BP improved. Potassium was 3.7, BNP 3079 XRay abd -no evidence of fecal impaction. 02/24 The patient feels much better. Patient lines on bed comfortably. Blood pressure is improved, systolic blood pressure greater than 120. Patient still has tachycardia, greater than 110. Sodium 142, potassium 3.9 will increase metoprolol to 25mg bid and esomolol drip as needed. continue digoxin. 02/25 Patient feels better. Denies nausea, vomiting, fever, chills, headache, or chest pain. No longer has a hypotension. But patient heart rate still not controlled. Patient still needs oxygen BNP increased to 5843 from 3079. IV is on hold. Echo on 02/21/20 showed EF: calculated 46%, visual EF 55 to 60% Digoxin increased to 0.25 mg daily. Increase metoprolol to 50 mg twice daily. Esmolol drip as needed 02/26 He feels fine. Does not have any complaints. Denies nausea, vomiting, or abdominal pain. His appetite is still poor. When I saw this patient this morning, he did not touch his breakfast. I encouraged him to eat more. He he promised to me try. Heart rate is still higher than 110 On 2 L Sodium 140, potassium 3.8, creatinine 0.8, phosphorus of 2.6, magnesium 1.7 Liver enzymes went down from yesterday. BNP 5843. Echocardiogram on February 21, 2020 - calculated EF of 46%, visual EF 55 to 60% Review of Systems: denies headache/fever/chills/nausea/vomiting/chest or abdominal pain/cough/d yspnea/diarrhea. Otherwise see above. Principal diagnosis: Alcoholic ketoacidosis with ARF Constitutional Vitals: Vital Signs Temp Pulse Resp BP Pulse Ox 97.9 F 112 H 30 H 145/85 96 02/27/20 08:01 02/22/20 06:21 02/27/20 08:01 02/27/20 08:01 02/27/20 08:01 Period Temp Pulse Resp BP Sys/Lomeli Pulse Ox Last 24 Hr 97.5 F-98.4 F 14-31 86-155/51-105 85-100 Intake and Output 02/26/20 02/27/20 02/27/20 21:59 05:59 13:59 Intake Total 457 494 48 Output Total 103 105 5 Balance 354 389 43 Weight 114.5 kg Intake & Output: Intake & Output 02/26/20 02/27/20 02/27/20 21:59 05:59 13:59 Intake Total 457 494 48 Output Total 103 105 5 Balance 354 389 43 Weight 114.5 kg Intake: IV 207 494 Brevibloc 2,500 mg In Premix 1 207 494 Bag @ 50 MCG/KG/MIN 35.266 mls/ hr IV .Q7H6M [facility] Rx#:[id number] Oral 250 24 Lipid 12 GI Tube Flush 12 Output: Urine Catheter Amount 0 Void Amount 100 100 # of times incontinent of urine 3 5 5 Other: Meal Lunch Breakfast Percent of Meal Consumed 25% 0% Urine Appearance Clear Clear Urine Color Straw Pale Urine Odor Normal Stool Size Small Moderate Stool Color Brown Brown Stool Consistency Soft Soft # Voids 3 # Bowel Movements 1 # of times incontinent of 1 1 Bowels Additional findings Additional findings: General: Awake, No acute Distress Eyes/N/T: EOMI, Head/Neck: neck supple, CV: irreg irreg, No murmurs, Pulm: Diminished b/l, no wheezing Abd: soft, nontender, hypoactive BS Ext: no clubbing/cyanosis, b/l LE edema almost resolved. Neuro: Alert, no focal deficits, moves all extremities, Skin: warm/dry OBJ DATA Labs CBC & Chem 7: 02/27/20 05:19 02/27/20 05:19 Labs: Abnormal Lab Results 02/27/20 02/27/20 02/26/20 05:19 05:19 04:32 RBC 3.09 L Hgb 11.0 L Hct 35.2 L MCV 113.9 H MCH 35.6 H RDW 15.1 H Lymph % (Auto) 12.0 L [place] % (Auto) 21.0 H Lymph # (Auto) 0.83 L [place] # (Auto) 1.45 H Calcium AST 67 H 73 H ALT 66 H 79 H Alkaline Phosphatase 127 H 149 H NT-Pro-B Natriuret Pep 5843.0 H Total Protein 5.6 L 5.6 L Albumin 2.4 L 2.7 L Albumin/Globulin Ratio 0.8 L 0.9 L 02/26/20 02/25/20 02/25/20 04:32 04:32 04:32 RBC 3.17 L 3.13 L Hgb 11.3 L 11.2 L Hct 34.2 L 33.7 L MCV 107.9 H 107.7 H MCH 35.6 H 35.8 H RDW 14.7 H 14.6 H Lymph % (Auto) 10.3 L 10.2 L [place] % (Auto) 23.5 H 23.9 H Lymph # (Auto) 0.78 L 0.77 L [place] # (Auto) 1.77 H 1.80 H Calcium 8.5 L AST 80 H ALT 87 H Alkaline Phosphatase 152 H NT-Pro-B Natriuret Pep Total Protein 5.5 L Albumin 2.5 L Albumin/Globulin Ratio 0.8 L Meds: Medications Albuterol/Ipratropium (Duoneb) 3 ml NEB Q4HRT PRN PRN Reason: dysnpea Atorvastatin Calcium (Lipitor) 40 mg PO QDAY [facility] Last Admin: 02/27/20 10:09 Dose: 40 mg Documented by: Ceftriaxone Sodium (Rocephin) 1 gm IV Q24H [facility]; Protocol Last Admin: 02/27/20 10:22 Dose: 1 gm Documented by: Diazepam (Valium) 5 mg PO Q8H PRN PRN Reason: Alcohol Withdrawal Last Admin: 02/24/20 16:46 Dose: 5 mg Documented by: Digoxin (Lanoxin) 250 mcg PO DAILY@1400 [facility] Last Admin: 02/26/20 12:56 Dose: 250 mcg Documented by: Enoxaparin Sodium (Lovenox) 40 mg SQ DAILY [facility] Last Admin: 02/27/20 10:10 Dose: 40 mg Documented by: Famotidine (Pepcid) 20 mg IV HS [facility] Last Admin: 02/26/20 21:49 Dose: 20 mg Documented by: Folic Acid (Folic Acid) 1 mg PO DAILY [facility] Last Admin: 02/27/20 10:10 Dose: 1 mg Documented by: Furosemide (Lasix) 20 mg PO BIDD [facility] Last Admin: 02/27/20 10:08 Dose: 20 mg Documented by: Esmolol HCl 2,500 mg/ Premix 250 mls @ 35.266 mls/hr IV .Q7H6M [facility]; Protocol Last Admin: 02/27/20 10:30 Dose: Not Given Documented by: Magnesium Sulfate (Magnesium Sulfate) 2 gm in 50 mls @ 25 mls/hr IV PRN PRN PRN Reason: Magnesium < Or = 1.8 Potassium Chloride 40 meq/ (Dextrose) 520 mls @ 130 mls/hr IV PRN PRN PRN Reason: potassium less than 3.0 Sodium Chloride (Sodium Chloride 0.9%) 250 mls @ 20 mls/hr IV .[id number] [facility] Last Admin: 02/27/20 10:27 Dose: Not Given Documented by: Iron Carb/Multivit/Vending Machine Coin Collector/Folic Acid (Multivitamin W/Minerals) 1 tab PO DAILY [facility] Last Admin: 02/27/20 10:07 Dose: 1 tab Documented by: Lactulose (Cephulac) 10 gm PO DAILY PRN PRN Reason: Constipation Lisinopril (Zestril) 10 mg PO HS [facility] Last Admin: 02/26/20 21:39 Dose: Not Given Documented by: Lorazepam (Ativan) 0.5 mg IV Q4HP PRN PRN Reason: ANXIETY/SEDATION Metoprolol Tartrate (Lopressor) 2.5 mg IV Q5M PRN PRN Reason: Tachyarrhythmias Last Admin: 02/26/20 02:42 Dose: 2.5 mg Documented by: Metoprolol Tartrate (Lopressor) 75 mg PO BID [facility] Last Admin: 02/27/20 10:07 Dose: 75 mg Documented by: Ondansetron HCl (Zofran) 4 mg IV Q4-6HP PRN PRN Reason: Nausea And Vomiting Sertraline HCl (Zoloft) 50 mg PO QDAY [facility] Last Admin: 02/27/20 10:07 Dose: 50 mg Documented by: Sodium Chloride (Saline Flush) 10 ml IV Q8 [facility] Last Admin: 02/27/20 05:49 Dose: 10 ml Documented by: Thiamine HCl (Vitamin B1) 100 mg PO DAILY [facility] Last Admin: 02/27/20 10:10 Dose: 100 mg Documented by: A/P Narrative A/P Narrative: 1. Acute hypoxic respiratory failure -Pulse ox -Oxygen therapy, to keep oxygen saturation greater than 92% 2. Hypovolemic shock - off levophed Hypotension, resolved -As per , his blood pressures been running on the low side -IV fluid is on hold -Increased metoprolol 75 mg bid 3. SULLY - resolved 4. Alcoholic ketoacidosis 5. High anion gap metabolic acidosis 6. Multiple electrolyte abnormalities 7. Hypophosphatemia and hypokalemia - refeeding syndrome [employer] Installation Technician on board, really appreciate it 8. Aspiration: pt likely aspirating on his excessive mucus production. scopolomine patch 9. ETOH abuse with W/D: MVI/Thiamine/Folate CIWA protocol 10. thrombocytopenia: 2/2 etoh -Repeat CBC in morning 11. Hypoglycemia: 2/2 poor diet + chronic etoh Monitor 12. Hyponatremia/chloride: 2/2 beer potomania. Resolved 13. Elevated CPK: 2/2 immobilization/etoh -no granular 14. Transaminitis, mild: 2/2 hypotension/?etoh component 15. FTT/Malnutrition: 2/2 chronic alcoholism + recent life event. prealbumin 12 16. Afib RVR -chadsvasc=2, I would not like to start anticoagulation at this moment based on his a current condition and hematuria. -Digoxin 0.25mg daily. Check digoxin level in the morning -Increased metoprolol to 75 mg twice daily Esmolol drip-as needed 17. UTI? Hematuria completed 3day course of ceftriaxone 18. ICU Delerium: given chronic alcoholism I suspect there is some underlying cerebral damage *Poor long-term prognosis in chronic etoh pt/ot/ST ppx: heparin/home ppi Time Spent With Patient Time: Total time spent is greater than 50% in coordination of care (as documented) at patient's floor/unit and/or counseling patient: QUALITY VTE Deep Vein Thrombosis/Pulmonary Embolism Present on Admission: No
[2020-02-27] MEDS: DIGOXIN 125 MCG TABLET PO SCH (14:10)
[2020-02-27] MEDS: LISINOPRIL 10 MG TABLET PO SCH (20:59)
[2020-02-27] MEDS: FAMOTIDINE/PF 20 MG/2 ML VIAL IV SCH (21:05)
[2020-02-28] MEDS: ESMOLOL 2,500 MG in PREMIX 1 BAG IV SCH ×2 (01:42→04:28)
[2020-02-28] MEDS: 0.9 % SODIUM CHLORIDE 10 ML SYRINGE IV SCH ×3 (05:48→20:49)
[2020-02-28 06:25] LABS: Basophils # (Auto) 0.04 K/mcL (0.00-0.20); Basophils % (Auto) 0.6 % (0.0-2.0); Eosinophils # (Auto) 0.12 K/mcL (0.00-0.70); Eosinophils % (Auto) 1.8 % (0.0-7.0); Hematocrit 32.6 % (41.0-55.0); Hemoglobin 10.9 g/dL (13.5-16.5); Lymphocytes # (Auto) 0.84 K/mcL (1.50-4.80); Lymphocytes % (Auto) 12.5 % (15.0-49.0); Mean Cell Volume 106.9 fL (80.0-100.0); Mean Corpuscular HGB Conc 33.4 g/dL (31.0-36.0); Mean Platelet Volume 10.2 fL (7.4-10.4); Monocytes # (Auto) 1.16 K/mcL (0.10-0.90); Monocytes % (Auto) 17.2 % (1.0-12.0); Neutrophils % (Auto) 67.9 % (38.0-78.0); Platelet Count 231 K/mcL (140-440); RBC 3.05 M/mcL (4.50-5.90); Red Cell Distribution Width 14.9 % (11.5-14.5); WBC 6.7 K/mcL (4.5-11.0)
[2020-02-28] MEDS: 0.9 % SODIUM CHLORIDE 250 ML IV SCH ×2 (06:30→20:49)
[2020-02-28] MEDS ORDERED: ESMOLOL 2,500 MG in PREMIX 1 BAG IV PRN (07:15)
[2020-02-28 07:48] LABS: ALT/SGPT 61 U/L (<40); AST/SGOT 64 U/L (<40); Albumin 2.7 gm/dL (3.2-5.2); Albumin/Globulin Ratio 0.9 (1.0-2.3); Alkaline Phosphatase 123 U/L (39-117); Bilirubin,Total 0.5 mg/dL (0.1-1.0); Blood Urea Nitrogen 9 mg/dL (8-23); Calcium 9.1 mg/dL (8.6-10.4); Carbon Dioxide 30 mmol/L (22-30); Chloride 98 mmol/L (96-108); Globulin 3.1 gm/dL (2.2-3.7); Glomerular Filtration Rate 96; Glucose 103 mg/dL (70-105)
--- NOTE | 2020-02-28 09:47 | Internal Med Progress Note ---
SUBJECTIVE Subjective Patient information: Note initiated : 02/28/20 at 9:37 am Service Date, if different from initiated Date: [] Patient: Sindhu Delgado 69 y/o M admitted on 02/20/20 for Low BP, Not Eating/Drinking. Chief Complaint: [] History obtained from the patient as well as patient's . Patient is quite sedentary, sitting in chair most of the day, and does not eat very much typically a meal per day per his . About 5 days ago with adequate down their dog who is emotionally attached to and is quite devastating for him. That time he lost interest in eating. He has continued to drink for which he drinks 3-4 drinks of liquor per day although says he did have is much yesterday. Per the he acted a little confused this morning. Did have one episode of diarrhea in the ED. Denies chest pain or shortness of breath or abdominal pain. Denies headache fevers. Per he is always slightly tremulous but he seemed more shaky this morning. She called EMS who arrived and found that he was hypotensive and he had hypoglycemia and was given fluids and glucose. ED he was given almost 3 L of IV fluid. His says he looks better than when he arrived. 02/20 Patient states he is feeling better. No overnight issues. However nurse does state that he has lots of oral secretions and appears that he has a hard time clearing them at times. Will get speech therapy evaluating. Vasopressors off last night. Awaiting follow-up labs. Good urine output. 02/21 Patient seem to have gone and alcohol withdrawal overnight shift. Also went into A. fib RVR and started on diltiazem drip. Additionally patient started the setting and noted to have thick secretions seen like at our time clearing secretions. Patient placed on BiPAP. Patient seems groggy but does awaken and answer questions. 02/22 Patient does not have any new complaints. Blood pressure at times. Heart rate still not controlled. Metoprolol 2.5 IV push. Esmolol drip (on hold due to hypotension) Patient is on 2 L. Potassium was 3.1 AST 110, ALT 104 02/23 Patient does not have any new complaints. Patient has not had a bowel movement for days. Heart rate is still not well controlled because he the blood pressure does not have tolerate metoprolol/esmolol drip. So I started digoxin. I will decrease metoprolol. Nephrology Dr. Nava recommended captopril 3.125mg po every 6 hours for his cardiomyopathy. I will start the med when his BP improved. Potassium was 3.7, BNP 3079 XRay abd -no evidence of fecal impaction. 02/24 The patient feels much better. Patient lines on bed comfortably. Blood pressure is improved, systolic blood pressure greater than 120. Patient still has tachycardia, greater than 110. Sodium 142, potassium 3.9 will increase metoprolol to 25mg bid and esomolol drip as needed. continue digoxin. 02/25 Patient feels better. Denies nausea, vomiting, fever, chills, headache, or chest pain. No longer has a hypotension. But patient heart rate still not controlled. Patient still needs oxygen BNP increased to 5843 from 3079. IV is on hold. Echo on 02/21/20 showed EF: ca lculated 46%, visual EF 55 to 60% Digoxin increased to 0.25 mg daily. Increase metoprolol to 50 mg twice daily. Esmolol drip as needed 02/26 He feels fine. Does not have any complaints. Denies nausea, vomiting, or abdominal pain. His appetite is still poor. When I saw this patient this morning, he did not touch his breakfast. I encouraged him to eat more. He he promised to me try. Heart rate is still higher than 110 On 2 L Sodium 140, potassium 3.8, creatinine 0.8, phosphorus of 2.6, magnesium 1.7 Liver enzymes went down from yesterday. BNP 5843. Echocardiogram on February 21, 2020 - calculated EF of 46%, visual EF 55 to 60% 02/27-persistent A. fib despite on digoxin/esmolol. Start Cardizem 60 every 6. Blood pressure goal. Wean esmolol drip as tolerated. Continue Lopressor. No valvular abnormality on echocardiogram. Patient will benefit from anticoagulation. Will discuss initiating rivaroxaban. Magnesium 1.1 on replacement. LFTs downtrending. Principal diagnosis: Alcoholic ketoacidosis with ARF Constitutional Vitals: Vital Signs Temp Pulse Resp BP Pulse Ox 97.1 F 112 H 22 118/83 100 02/28/20 08:00 02/22/20 06:21 02/28/20 08:00 02/28/20 08:00 02/28/20 08:00 Period Temp Pulse Resp BP Sys/Lomeli Pulse Ox Last 24 Hr 97.1 F-98.3 F 16-22 83-147/46-104 74-100 Intake and Output 02/27/20 02/28/20 02/28/20 21:59 05:59 13:59 Intake Total 240 Output Total 2 253 Balance 238 -253 Weight 112.128 kg alert oriented Minimal anxiety Telemetry A. fib with intermittent RVR Nondistended abdomen Intake & Output: Intake & Output 02/27/20 02/28/20 02/28/20 21:59 05:59 13:59 Intake Total 240 Output Total 2 253 Balance 238 -253 Weight 112.128 kg Intake: Oral 240 Output: Void Amount 250 # of times incontinent of urine 2 3 Other: Urine Appearance Clear Cloudy Urine Color Straw Straw Dark Yellow Urine Odor Normal Normal Stool Size Moderate Small Stool Color Brown Brown Stool Consistency Soft Soft # Voids 2 1 # Bowel Movements 2 1 # of times incontinent of 2 Bowels OBJ DATA Labs CBC & Chem 7: 02/28/20 05:25 02/28/20 05:25 Labs: Abnormal Lab Results 02/28/20 02/28/20 02/27/20 05:25 05:25 05:19 RBC 3.05 L Hgb 10.9 L Hct 32.6 L MCV 106.9 H MCH 35.7 H RDW 14.9 H Lymph % (Auto) 12.5 L [place] % (Auto) 17.2 H Lymph # (Auto) 0.84 L [place] # (Auto) 1.16 H Magnesium 1.1 L AST 64 H 67 H ALT 61 H 66 H Alkaline Phosphatase 123 H 127 H NT-Pro-B Natriuret Pep Total Protein 5.8 L 5.6 L Albumin 2.7 L 2.4 L Albumin/Globulin Ratio 0.9 L 0.8 L 02/27/20 02/26/20 02/26/20 05:19 04:32 04:32 RBC 3.09 L 3.17 L Hgb 11.0 L 11.3 L Hct 35.2 L 34.2 L MCV 113.9 H 107.9 H MCH 35.6 H 35.6 H RDW 15.1 H 14.7 H Lymph % (Auto) 12.0 L 10.3 L [place] % (Auto) 21.0 H 23.5 H Lymph # (Auto) 0.83 L 0.78 L [place] # (Auto) 1.45 H 1.77 H Magnesium AST 73 H ALT 79 H Alkaline Phosphatase 149 H NT-Pro-B Natriuret Pep 5843.0 H Total Protein 5.6 L Albumin 2.7 L Albumin/Globulin Ratio 0.9 L Meds: Medications Albuterol/Ipratropium (Duoneb) 3 ml NEB Q4HRT PRN PRN Reason: dysnpea Atorvastatin Calcium (Lipitor) 40 mg PO QDAY [facility] Last Admin: 02/27/20 10:09 Dose: 40 mg Documented by: Diazepam (Valium) 5 mg PO Q8H PRN PRN Reason: Alcohol Withdrawal Last Admin: 02/24/20 16:46 Dose: 5 mg Documented by: Digoxin (Lanoxin) 250 mcg PO DAILY@1400 [facility] Last Admin: 02/27/20 14:10 Dose: 250 mcg Documented by: Diltiazem HCl (Cardizem) 60 mg PO Q6 [facility] Enoxaparin Sodium (Lovenox) 40 mg SQ DAILY [facility] Last Admin: 02/27/20 10:10 Dose: 40 mg Documented by: Famotidine (Pepcid) 20 mg IV HS [facility] Last Admin: 02/27/20 21:05 Dose: 20 mg Documented by: Folic Acid (Folic Acid) 1 mg PO DAILY [facility] Last Admin: 02/27/20 10:10 Dose: 1 mg Documented by: Furosemide (Lasix) 20 mg PO BIDD [facility] Last Admin: 02/27/20 16:41 Dose: 20 mg Documented by: Magnesium Sulfate (Magnesium Sulfate) 2 gm in 50 mls @ 25 mls/hr IV PRN PRN PRN Reason: Magnesium < Or = 1.8 Potassium Chloride 40 meq/ (Dextrose) 520 mls @ 130 mls/hr IV PRN PRN PRN Reason: potassium less than 3.0 Sodium Chloride (Sodium Chloride 0.9%) 250 mls @ 20 mls/hr IV .[id number] [facility] Last Admin: 02/28/20 06:30 Dose: Not Given Documented by: Esmolol HCl 2,500 mg/ Premix 250 mls @ 35.266 mls/hr IV .Q7H6M PRN; Protocol PRN Reason: Hypertension Iron Carb/Multivit/[place]/Folic Acid (Multivitamin W/Minerals) 1 tab PO DAILY [facility] Last Admin: 02/27/20 10:07 Dose: 1 tab Documented by: Lactulose (Cephulac) 10 gm PO DAILY PRN PRN Reason: Constipation Lisinopril (Zestril) 10 mg PO HS [facility] Last Admin: 02/27/20 20:59 Dose: Not Given Documented by: Lorazepam (Ativan) 0.5 mg IV Q4HP PRN PRN Reason: ANXIETY/SEDATION Metoprolol Tartrate (Lopressor) 2.5 mg IV Q5M PRN PRN Reason: Tachyarrhythmias Last Admin: 02/26/20 02:42 Dose: 2.5 mg Documented by: Metoprolol Tartrate (Lopressor) 75 mg PO BID [facility] Last Admin: 02/27/20 21:05 Dose: 75 mg Documented by: Ondansetron HCl (Zofran) 4 mg IV Q4-6HP PRN PRN Reason: Nausea And Vomiting Sertraline HCl (Zoloft) 50 mg PO QDAY [facility] Last Admin: 02/27/20 10:07 Dose: 50 mg Documented by: Sodium Chloride (Saline Flush) 10 ml IV Q8 [facility] Last Admin: 02/28/20 05:48 Dose: 10 ml Documented by: Thiamine HCl (Vitamin B1) 100 mg PO DAILY [facility] Last Admin: 02/27/20 10:10 Dose: 100 mg Documented by: A/P Assessment and plan (1) Acute renal failure (ARF): Assessment and plan: Easiest explanation would be dehydration in the setting of hypotension and continued NOLA inhibitor administration Unfortunately that will not explain the bulk of the electrolyte abnormalities nor will I did explain the metabolic acidosis Rhabdomyolysis is present but seems to be low-grade I suspect part of what is going on is alcoholic ketoacidosis Must rule out ethylene glycol intoxication given the large metabolic acidosis We will need to calculate his serum osmolar gap, fractional excretion of sodium, look for granular casts as well as calcium oxalate crystals as soon as the urine becomes available. Continue hydration with rastafarian of systolic blood pressure around 100 Status: Acute Comment: Last creatinine in 2019 was normal Qualifiers: Acute renal failure type: unspecified Qualified Code(s): N17.9 - Acute kidney failure, unspecified (2) High anion gap metabolic acidosis: Assessment and plan: Alcoholic ketoacidosis is my #1 choice With or without a component of lactic acidosis Need to rule out any need to rule out any methanol or ethylene glycol contributing though he denies drinking either of these Status: Acute (3) Alcoholism, chronic: Status: Acute Comment: reports 4-5 alcoholic beverages daily and he had a detectable alcohol level of 0.01 on admission. He has other hematologic signs of chronic alcohol use including high MCV and low platelet count (4) Hypotension: Status: Acute Comment: says his blood pressures been running running on the low side recently so could be due to his medications Qualifiers: Hypotension type: hypotension due to drug Qualified Code(s): I95.2 - Hypotension due to drugs (5) Electrolyte abnormality: Status: Acute Comment: Suspect alcohol related electrolyte abnormalities as acute renal failure from just dehydration and NOLA inhibitors tends to have a high potassium not low (6) Rhabdomyolysis: Assessment and plan: Suspect this is alcohol induced rhabdomyolysis need to check his phosphorus Status: Acute Comment: Suspect alcohol related. Resolved within 72 hours Qualifiers: Encounter type: subsequent encounter Narrative A/P Narrative: * A. fib with RVR-continue rate control measures on beta-xavier/CCB/digoxin. CHADS2 score over 2 mandating anticoagulation. Consider initiation of Xarelto once hematuria resolves, echocardiogram no evidence of valvular abnormality. * Left-sided pneumonia clinically resolved. * Hypoxic respiratory failure resolved now on room air * Hypovolemic shock resolved, off pressors. * Acute kidney injury secondary shock resolved now creatinine at baseline * Alcohol abuse with withdrawals-managed with close monitoring/aggressive electrolytes multivitamin replacement. * Transaminitis secondary to alcoholism * Failure to thrive/malnutrition secondary to alcoholism. Nutrition support per dietitian. * Complicated UTI status post 3 days Rocephin, resolved * Hematuria-minimal and improving * Full code Plan * Rate control measures * PT OT * Diet and therapies as tolerated * Discharge planning per case management Time Spent With Patient Time: Total time spent is greater than 50% in coordination of care (as documented) at patient's floor/unit and/or counseling patient: QUALITY VTE Deep Vein Thrombosis/Pulmonary Embolism Present on Admission: No
[2020-02-28] MEDS: ATORVASTATIN 40 MG TABLET PO SCH (09:49)
[2020-02-28] MEDS: MULTIVIT,THER IRON,CA,FA & MIN 1 TABLET PO SCH (09:49)
[2020-02-28] MEDS: FOLIC ACID 1 MG TABLET PO SCH (09:49)
[2020-02-28] MEDS: FUROSEMIDE 20 MG TABLET PO SCH ×2 (09:50→16:33)
[2020-02-28] MEDS: THIAMINE 100 MG TABLET PO SCH (09:50)
[2020-02-28] MEDS: SERTRALINE 50 MG TABLET PO SCH (09:50)
[2020-02-28] MEDS: METOPROLOL TARTRATE 25 MG TABLET PO SCH ×2 (09:51→20:48)
[2020-02-28] MEDS: ENOXAPARIN 40 MG/0.4 ML SYRINGE SQ SCH (09:52)
[2020-02-28] MEDS: DILTIAZEM 30 MG TABLET PO SCH ×3 (11:28→23:46)
[2020-02-28] MEDS ORDERED: DIGOXIN 125 MCG TABLET PO SCH (14:00)
[2020-02-28] MEDS: FAMOTIDINE/PF 20 MG/2 ML VIAL IV SCH (20:48)
[2020-02-28] MEDS: LISINOPRIL 10 MG TABLET PO SCH (20:48)
[2020-02-29 03:45] LABS: Appearance,Urine CLEAR (Clear); Bilirubin,Urine Negative (Negative); Color,Urine YELLOW; Culture Indicated,Urine No; Glucose,Urine (UA) Negative (Negative); Ketones,Urine 5 mg/dL (Negative); Leukocyte Esterase,Urine Negative /ug (Negative); Nitrate,Urine Negative (Negative); Protein,Urine 100 mg/dL (Negative); Specific Gravity,Urine 1.012 (1.000-1.035); Urine RBC > 182 /hpf (0-1); Urine Squamous Epithelial Cell 0 /hpf (0-4); Urine WBC 1 /hpf (0-4); Urobilinogen,Urine Negative
[2020-02-29] MEDS: 0.9 % SODIUM CHLORIDE 10 ML SYRINGE IV SCH ×3 (05:34→21:34)
[2020-02-29] MEDS: DILTIAZEM 30 MG TABLET PO SCH ×4 (05:34→23:39)
[2020-02-29 06:32] LABS: Basophils # (Auto) 0.05 K/mcL (0.00-0.20); Basophils % (Auto) 0.8 % (0.0-2.0); Eosinophils # (Auto) 0.08 K/mcL (0.00-0.70); Eosinophils % (Auto) 1.3 % (0.0-7.0); Hematocrit 35.6 % (41.0-55.0); Hemoglobin 11.4 g/dL (13.5-16.5); Lymphocytes # (Auto) 0.83 K/mcL (1.50-4.80); Lymphocytes % (Auto) 13.2 % (15.0-49.0); Mean Cell Volume 109.5 fL (80.0-100.0); Mean Platelet Volume 10.1 fL (7.4-10.4); Monocytes # (Auto) 0.87 K/mcL (0.10-0.90); Monocytes % (Auto) 13.8 % (1.0-12.0); Neutrophils % (Auto) 70.9 % (38.0-78.0); Platelet Count 259 K/mcL (140-440); RBC 3.25 M/mcL (4.50-5.90); Red Cell Distribution Width 14.9 % (11.5-14.5); WBC 6.3 K/mcL (4.5-11.0)
[2020-02-29 06:50] LABS: ALT/SGPT 55 U/L (<40); AST/SGOT 59 U/L (<40); Albumin 2.7 gm/dL (3.2-5.2); Albumin/Globulin Ratio 0.9 (1.0-2.3); Alkaline Phosphatase 118 U/L (39-117); Bilirubin,Total 0.4 mg/dL (0.1-1.0); Blood Urea Nitrogen 7 mg/dL (8-23); Calcium 8.9 mg/dL (8.6-10.4); Carbon Dioxide 36 mmol/L (22-30); Chloride 95 mmol/L (96-108); Glomerular Filtration Rate 102; Glucose 99 mg/dL (70-105)
[2020-02-29] MEDS: 0.9 % SODIUM CHLORIDE 250 ML IV SCH ×2 (09:31→09:53)
--- NOTE | 2020-02-29 09:49 | XRay Report ---
CLINICAL INFORMATION: hypoxia COMPARISON: 02/23/2020 FINDINGS: Heart is mildly enlarged, but unchanged. Mediastinum and pulmonary vessels are normal. Lungs are clear. No effusions. IMPRESSION: Mild stable cardiomegaly. No acute disease Interpreted and Authenticated by: Scott Hernandez 02/29/20
[2020-02-29] MEDS ORDERED: METOPROLOL TARTRATE 5 MG/5 ML VIAL IV PRN (09:51)
[2020-02-29] MEDS ORDERED: LORazepam 2 MG/ML VIAL IV PRN (09:51)
[2020-02-29] MEDS ORDERED: ONDANSETRON 4 MG/2 ML VIAL IV PRN (09:51)
[2020-02-29] MEDS ORDERED: DIAZEPAM 5 MG TABLET PO PRN (09:51)
[2020-02-29] MEDS ORDERED: LACTULOSE 20 GM/30 ML ORAL.SOL PO PRN (09:51)
[2020-02-29] MEDS ORDERED: IPRATROPIUM/ALBUTEROL 3 ML AMPUL.NEB NEB PRN (09:51)
[2020-02-29] MEDS ORDERED: POTASSIUM CHLORIDE 40 MEQ in DEXTROSE 5% IN WATER 500 ML IV PRN (09:51)
[2020-02-29] MEDS ORDERED: MAGNESIUM SULFATE 2 GM/50 ML BAG IV PRN (09:51)
[2020-02-29] MEDS ORDERED: ESMOLOL 2,500 MG in PREMIX 1 BAG IV PRN (09:51)
[2020-02-29] MEDS: ENOXAPARIN 40 MG/0.4 ML SYRINGE SQ SCH (09:55)
[2020-02-29] MEDS: FUROSEMIDE 20 MG TABLET PO SCH ×2 (09:55→16:03)
[2020-02-29] MEDS: ATORVASTATIN 40 MG TABLET PO SCH (09:55)
[2020-02-29] MEDS: METOPROLOL TARTRATE 25 MG TABLET PO SCH ×2 (09:55→21:33)
[2020-02-29] MEDS: FOLIC ACID 1 MG TABLET PO SCH (09:55)
[2020-02-29] MEDS: THIAMINE 100 MG TABLET PO SCH (09:56)
[2020-02-29] MEDS: MULTIVIT,THER IRON,CA,FA & MIN 1 TABLET PO SCH (09:56)
[2020-02-29] MEDS: SERTRALINE 50 MG TABLET PO SCH (09:56)
--- NOTE | 2020-02-29 10:26 | Internal Med Progress Note ---
SUBJECTIVE Subjective Patient information: Note initiated : 02/29/20 at 10:24 am Service Date, if different from initiated Date: [] Patient: Sindhu Delgado 69 y/o M admitted on 02/20/20 for Low BP, Not Eating/Drinking. Chief Complaint: [] History obtained from the patient as well as patient's . Patient is quite sedentary, sitting in chair most of the day, and does not eat very much typically a meal per day per his . About 5 days ago with adequate down their dog who is emotionally attached to and is quite devastating for him. That time he lost interest in eating. He has continued to drink for which he drinks 3-4 drinks of liquor per day although says he did have is much yesterday. Per the he acted a little confused this morning. Did have one episode of diarrhea in the ED. Denies chest pain or shortness of breath or abdominal pain. Denies headache fevers. Per he is always slightly tremulous but he seemed more shaky this morning. She called EMS who arrived and found that he was hypotensive and he had hypoglycemia and was given fluids and glucose. ED he was given almost 3 L of IV fluid. His says he looks better than when he arrived. 02/20 Patient states he is feeling better. No overnight issues. However nurse does state that he has lots of oral secretions and appears that he has a hard time clearing them at times. Will get speech therapy evaluating. Vasopressors off last night. Awaiting follow-up labs. Good urine output. 02/21 Patient seem to have gone and alcohol withdrawal overnight shift. Also went into A. fib RVR and started on diltiazem drip. Additionally patient started the setting and noted to have thick secretions seen like at our time clearing secretions. Patient placed on BiPAP. Patient seems groggy but does awaken and answer questions. 02/22 Patient does not have any new complaints. Blood pressure at times. Heart rate still not controlled. Metoprolol 2.5 IV push. Esmolol drip (on hold due to hypotension) Patient is on 2 L. Potassium was 3.1 AST 110, ALT 104 02/23 Patient does not have any new complaints. Patient has not had a bowel movement for days. Heart rate is still not well controlled because he the blood pressure does not have tolerate metoprolol/esmolol drip. So I started digoxin. I will decrease metoprolol. Nephrology Dr. Nava recommended captopril 3.125mg po every 6 hours for his cardiomyopathy. I will start the med when his BP improved. Potassium was 3.7, BNP 3079 XRay abd -no evidence of fecal impaction. 02/24 The patient feels much better. Patient lines on bed comfortably. Blood pressure is improved, systolic blood pressure greater than 120. Patient still has tachycardia, greater than 110. Sodium 142, potassium 3.9 will increase metoprolol to 25mg bid and esomolol drip as needed. continue digoxin. 02/25 Patient feels better. Denies nausea, vomiting, fever, chills, headache, or chest pain. No longer has a hypotension. But patient heart rate still not controlled. Patient still needs oxygen BNP increased to 5843 from 3079. IV is on hold. Echo on 02/21/20 showed EF: c alculated 46%, visual EF 55 to 60% Digoxin increased to 0.25 mg daily. Increase metoprolol to 50 mg twice daily. Esmolol drip as needed 02/26 He feels fine. Does not have any complaints. Denies nausea, vomiting, or abdominal pain. His appetite is still poor. When I saw this patient this morning, he did not touch his breakfast. I encouraged him to eat more. He he promised to me try. Heart rate is still higher than 110 On 2 L Sodium 140, potassium 3.8, creatinine 0.8, phosphorus of 2.6, magnesium 1.7 Liver enzymes went down from yesterday. BNP 5843. Echocardiogram on February 21, 2020 - calculated EF of 46%, visual EF 55 to 60% 02/27-persistent A. fib despite on digoxin/esmolol. Start Cardizem 60 every 6. Blood pressure goal. Wean esmolol drip as tolerated. Continue Lopressor. No valvular abnormality on echocardiogram. Patient will benefit from anticoagulation. Will discuss initiating rivaroxaban. Magnesium 1.1 on replacement. LFTs downtrending. 02/28-patient clinically better. Off esmolol drip. Currently on digoxin/diltiazem/metoprolol adequately rate controlled. Started on rivaroxaban for CVA prophylaxis based on chads score. Transition to medical floor. Will likely discharge in 24 to 48 hours pending clinical improvement. Continue nutrition support/therapies. LFTs downtrending Constitutional Vitals: Vital Signs Temp Pulse Resp BP Pulse Ox 97.3 F 106 H 20 102/76 96 02/29/20 08:01 02/29/20 07:38 02/29/20 08:01 02/29/20 08:01 02/29/20 08:01 Period Temp Pulse Resp BP Sys/Lomeli Pulse Ox Last 24 Hr 97.2 F-97.7 F 106 16-24 87-160/48-99 90-100 Intake and Output 02/28/20 02/29/20 02/29/20 21:59 05:59 13:59 Intake Total 120 50 Output Total 326 104 52 Balance -206 -104 -2 Weight 111.856 kg alert oriented No anxiety Nonlabored breathing No telemetry events except for A. fib Intake & Output: Intake & Output 02/28/20 02/29/20 02/29/20 21:59 05:59 13:59 Intake Total 120 50 Output Total 326 104 52 Balance -206 -104 -2 Weight 111.856 kg Intake: IV 50 Oral 120 Output: Void Amount 225 100 50 # of times incontinent of urine 101 4 2 Other: Meal Lunch Percent of Meal Consumed bites Feeding Ability Needs Supervision Urine Appearance Clear Clear Sediment Urine Color Dark Yellow Dark Yellow Dark Yellow Urine Odor Normal Normal Normal Stool Size Small Small Stool Color Brown Brown Stool Consistency Soft Soft # Voids 2 1 # Bowel Movements 1 # of times incontinent of 1 1 Bowels OBJ DATA Labs CBC & Chem 7: 02/29/20 05:35 02/29/20 05:35 Labs: Abnormal Lab Results 02/29/20 02/29/20 02/29/20 05:35 05:35 02:30 RBC 3.25 L Hgb 11.4 L Hct 35.6 L MCV 109.5 H MCH 35.1 H RDW 14.9 H Lymph % (Auto) 13.2 L [place] % (Auto) 13.8 H Lymph # (Auto) 0.83 L [place] # (Auto) Chloride 95 L Carbon Dioxide 36 H BUN 7 L Creatinine 0.6 L Magnesium AST 59 H ALT 55 H Alkaline Phosphatase 118 H Total Protein 5.7 L Albumin 2.7 L Albumin/Globulin Ratio 0.9 L Urine Protein 100 A Urine Ketones 5 A Urine Occult Blood Urine Urobilinogen Urine RBC > 182 H Hyaline Casts Urine Mucus 02/28/20 02/28/20 02/27/20 05:25 05:25 05:19 RBC 3.05 L Hgb 10.9 L Hct 32.6 L MCV 106.9 H MCH 35.7 H RDW 14.9 H Lymph % (Auto) 12.5 L [place] % (Auto) 17.2 H Lymph # (Auto) 0.84 L [place] # (Auto) 1.16 H Chloride Carbon Dioxide BUN Creatinine Magnesium 1.1 L AST 64 H 67 H ALT 61 H 66 H Alkaline Phosphatase 123 H 127 H Total Protein 5.8 L 5.6 L Albumin 2.7 L 2.4 L Albumin/Globulin Ratio 0.9 L 0.8 L Urine Protein Urine Ketones Urine Occult Blood Urine Urobilinogen Urine RBC Hyaline Casts Urine Mucus 02/27/20 02/20/20 05:19 17:00 RBC 3.09 L Hgb 11.0 L Hct 35.2 L MCV 113.9 H MCH 35.6 H RDW 15.1 H Lymph % (Auto) 12.0 L [place] % (Auto) 21.0 H Lymph # (Auto) 0.83 L [place] # (Auto) 1.45 H Chloride Carbon Dioxide BUN Creatinine Magnesium AST ALT Alkaline Phosphatase Total Protein Albumin Albumin/Globulin Ratio Urine Protein 100 A Urine Ketones 20 A Urine Occult Blood >=1.0 A Urine Urobilinogen 4.0 A Urine RBC 15 H Hyaline Casts 3 H Urine Mucus Few A Meds: Medications Albuterol/Ipratropium (Duoneb) 3 ml NEB Q4HRT PRN PRN Reason: dysnpea Atorvastatin Calcium (Lipitor) 40 mg PO QDAY [facility] Diazepam (Valium) 5 mg PO Q8H PRN PRN Reason: Alcohol Withdrawal Digoxin (Lanoxin) 125 mcg PO DAILY@1400 [facility] Diltiazem HCl (Cardizem) 60 mg PO Q6 [facility] Famotidine (Pepcid) 20 mg IV HS [facility] Folic Acid (Folic Acid) 1 mg PO DAILY [facility] Furosemide (Lasix) 20 mg PO BIDD [facility] Magnesium Sulfate (Magnesium Sulfate) 2 gm in 50 mls @ 25 mls/hr IV PRN PRN PRN Reason: Magnesium < Or = 1.8 Esmolol HCl 2,500 mg/ Premix 250 mls @ 35.266 mls/hr IV .Q7H6M PRN; Protocol PRN Reason: Hypertension Potassium Chloride 40 meq/ (Dextrose) 520 mls @ 130 mls/hr IV PRN PRN PRN Reason: potassium less than 3.0 Sodium Chloride (Sodium Chloride 0.9%) 250 mls @ 20 mls/hr IV .[id number] [facility] Last Admin: 02/29/20 09:53 Dose: Not Given Documented by: Iron Carb/Multivit/[place]/Folic Acid (Multivitamin W/Minerals) 1 tab PO DAILY [facility] Lactulose (Cephulac) 10 gm PO DAILY PRN PRN Reason: Constipation Lisinopril (Zestril) 10 mg PO HS [facility] [place] Lorazepam (Ativan) 0.5 mg IV Q4HP PRN PRN Reason: ANXIETY/SEDATION Metoprolol Tartrate (Lopressor) 75 mg PO BID [facility] Metoprolol Tartrate (Lopressor) 2.5 mg IV Q5M PRN PRN Reason: Tachyarrhythmias Ondansetron HCl (Zofran) 4 mg IV Q4-6HP PRN PRN Reason: Nausea And Vomiting Rivaroxaban (Xarelto) 15 mg PO BIDCC [facility] Sertraline HCl (Zoloft) 50 mg PO QDAY [facility] [place] Sodium Chloride (Saline Flush) 10 ml IV Q8 [facility] [place] Thiamine HCl (Vitamin B1) 100 mg PO DAILY [facility] A/P Narrative A/P Narrative: * A. fib with RVR-adequate rate control achieved on oral digoxin/beta- xavier/CCB. Started on rivaroxaban based on CHADS2 score over 2. echocardiogram no evidence of valvular abnormality. * Left-sided pneumonia clinically resolved. * Hypoxic respiratory failure resolved now on room air * Hypovolemic shock resolved, off pressors. * Acute kidney injury secondary shock resolved now creatinine at baseline * Alcohol abuse with withdrawals-managed with close monitoring/aggressive electrolytes multivitamin replacement. Continue nutrition support * Transaminitis secondary to alcoholism * Failure to thrive/malnutrition secondary to alcoholism. Nutrition support per dietitian. * Complicated UTI status post 3 days Rocephin, resolved * Hematuria- resolved * Full code Plan * Transition to medical floor * Rate controlled measures * Diet and therapies as tolerated * Discharge planning per case managementLikely in 24 to 48 hours Time Spent With Patient Time: Total time spent is greater than 50% in coordination of care (as documented) at patient's floor/unit and/or counseling patient: QUALITY VTE Deep Vein Thrombosis/Pulmonary Embolism Present on Admission: No
[2020-02-29] MEDS ORDERED: DIGOXIN 125 MCG TABLET PO SCH (14:00)
[2020-02-29] MEDS ORDERED: RIVAROXABAN 15 MG TABLET PO SCH (17:30)
[2020-02-29] MEDS: RIVAROXABAN 15 MG TABLET PO SCH (17:37)
[2020-02-29] MEDS ORDERED: FAMOTIDINE/PF 20 MG/2 ML VIAL IV SCH (21:00)
[2020-02-29] MEDS ORDERED: LISINOPRIL 10 MG TABLET PO SCH (21:00)
[2020-03-01] MEDS: 0.9 % SODIUM CHLORIDE 250 ML IV SCH ×2 (00:08→08:54)
[2020-03-01] MEDS: DILTIAZEM 30 MG TABLET PO SCH ×2 (05:27→11:32)
[2020-03-01] MEDS: 0.9 % SODIUM CHLORIDE 10 ML SYRINGE IV SCH (05:27)
[2020-03-01] MEDS: FUROSEMIDE 20 MG TABLET PO SCH (08:10)
[2020-03-01] MEDS: METOPROLOL TARTRATE 25 MG TABLET PO SCH (08:11)
[2020-03-01] MEDS: RIVAROXABAN 15 MG TABLET PO SCH (08:12)
[2020-03-01] MEDS ORDERED: MULTIVIT,THER IRON,CA,FA & MIN 1 TABLET PO SCH (09:00)
[2020-03-01] MEDS ORDERED: THIAMINE 100 MG TABLET PO SCH (09:00)
[2020-03-01] MEDS ORDERED: ENOXAPARIN 40 MG/0.4 ML SYRINGE SQ SCH (09:00)
[2020-03-01] MEDS ORDERED: FOLIC ACID 1 MG TABLET PO SCH (09:00)
[2020-03-01] MEDS ORDERED: SERTRALINE 50 MG TABLET PO SCH (09:00)
[2020-03-01] MEDS ORDERED: ATORVASTATIN 40 MG TABLET PO SCH (09:00)
[2020-03-01 09:31] LABS: ALT/SGPT 49 U/L (<40); AST/SGOT 51 U/L (<40); Albumin 2.8 gm/dL (3.2-5.2); Albumin/Globulin Ratio 0.9 (1.0-2.3); Alkaline Phosphatase 110 U/L (39-117); Basophils # (Auto) 0.04 K/mcL (0.00-0.20); Basophils % (Auto) 0.7 % (0.0-2.0); Bilirubin,Total 0.4 mg/dL (0.1-1.0); Blood Urea Nitrogen 9 mg/dL (8-23); Calcium 9.7 mg/dL (8.6-10.4); Carbon Dioxide 33 mmol/L (22-30); Chloride 96 mmol/L (96-108); Eosinophils # (Auto) 0.09 K/mcL (0.00-0.70); Eosinophils % (Auto) 1.6 % (0.0-7.0); Glomerular Filtration Rate 91; Glucose 105 mg/dL (70-105); Hematocrit 33.9 % (41.0-55.0); Hemoglobin 11.2 g/dL (13.5-16.5); Lymphocytes # (Auto) 0.72 K/mcL (1.50-4.80); Lymphocytes % (Auto) 12.8 % (15.0-49.0); Mean Cell Volume 106.9 fL (80.0-100.0); Mean Platelet Volume 10.9 fL (7.4-10.4); Monocytes # (Auto) 0.82 K/mcL (0.10-0.90); Monocytes % (Auto) 14.6 % (1.0-12.0); Neutrophils % (Auto) 70.3 % (38.0-78.0); Platelet Count 268 K/mcL (140-440); RBC 3.17 M/mcL (4.50-5.90); Red Cell Distribution Width 14.6 % (11.5-14.5); WBC 5.6 K/mcL (4.5-11.0)
--- NOTE | 2020-03-01 09:54 | Discharge Summary ---
Discharge Provider Provider Patient information: Note initiated : 03/01/20 at 9:51 am Service Date, if different from initiated Date: [] Patient: Sindhu Delgado 69 y/o M admitted on 02/20/20 for Low BP, Not Eating/Drinking. Chief Complaint: Discharge diagnosis * A. fib with RVR-adequate rate control achieved on oral digoxin/beta- xavier/CCB. Started on rivaroxaban based on CHADS2 score over 2. echocardiogram no evidence of valvular abnormality. * Left-sided pneumonia clinically resolved. * Hypoxic respiratory failure resolved now on room air * Hypovolemic shock resolved, off pressors. * History of hypertension-currently stable on diltiazem/lisinopril * Acute kidney injury secondary shock resolved now creatinine at baseline * Alcohol abuse with withdrawals-managed with close monitoring/aggressive electrolytes multivitamin replacement. Continue nutrition support * Transaminitis secondary to alcoholism * Failure to thrive/malnutrition secondary to alcoholism. Nutrition support per dietitian. * Complicated UTI status post 3 days Rocephin, resolved Brief Hospital course History obtained from the patient as well as patient's . Patient is quite sedentary, sitting in chair most of the day, and does not eat very much typically a meal per day per his . About 5 days ago with adequate down their dog who is emotionally attached to and is quite devastating for him. That time he lost interest in eating. He has continued to drink for which he drinks 3-4 drinks of liquor per day although says he did have is much yesterday. Per the he acted a little confused this morning. Did have one episode of diarrhea in the ED. Denies chest pain or shortness of breath or abdominal pain. Denies headache fevers. Per he is always slightly tremulous but he seemed more shaky this morning. She called EMS who arrived and found that he was hypotensive and he had hypoglycemia and was given fluids and glucose. ED he was given almost 3 L of IV fluid. His says he looks better than when he arrived. 02/20 Patient states he is feeling better. No overnight issues. However nurse does state that he has lots of oral secretions and appears that he has a hard time clearing them at times. Will get speech therapy evaluating. Vasopressors off last night. Awaiting follow-up labs. Good urine output. 02/21 Patient seem to have gone and alcohol withdrawal overnight shift. Also went into A. fib RVR and started on diltiazem drip. Additionally patient started the setting and noted to have thick secretions seen like at our time clearing secretions. Patient placed on BiPAP. Patient seems groggy but does awaken and answer questions. 02/22 Patient does not have any new complaints. Blood pressure at times. Heart rate still not controlled. Metoprolol 2.5 IV push. Esmolol drip (on hold due to hypotension) Patient is on 2 L. Potassium was 3.1 AST 110, ALT 104 02/23 Patient does not have any new complaints. Patient has not had a bowel movement for days. Heart rate is still not well controlled because he the blood pressure does not have tolerate metoprolol/esmolol drip. So I started digoxin. I will decrease metoprolol. Nephrology Dr. Nava recommended captopril 3.125mg po every 6 hours for his cardiomyopathy. I will start the med when his BP improved. Potassium was 3.7, BNP 3079 XRay abd -no evidence of fecal impaction. 02/24 The patient feels much better. Patient lines on bed comfortably. Blood pressure is improved, systolic blood pressure greater than 120. Patient still has tachycardia, greater than 110. Sodium 142, potassium 3.9 will increase metoprolol to 25mg bid and esomolol drip as needed. continue digoxin. 02/25 Patient feels better. Denies nausea, vomiting, fever, chills, headache, or chest pain. No longer has a hypotension. But patient heart rate still not controlled. Patient still needs oxygen BNP increased to 5843 from 3079. IV is on hold. Echo on 02/21/20 showed EF: calculated 46%, visual EF 55 to 60% Digoxin increased to 0.25 mg daily. Increase metoprolol to 50 mg twice daily. Esmolol drip as needed 02/26 He feels fine. Does not have any complaints. Denies nausea, vomiting, or abdominal pain. His appetite is still poor. When I saw this patient this morning, he did not touch his breakfast. I encouraged him to eat more. He he promised to me try. Heart rate is still higher than 110 On 2 L Sodium 140, potassium 3.8, creatinine 0.8, phosphorus of 2.6, magnesium 1.7 Liver enzymes went down from yesterday. BNP 5843. Echocardiogram on February 21, 2020 - calculated EF of 46%, visual EF 55 to 60% 02/27-persistent A. fib despite on digoxin/esmolol. Start Cardizem 60 every 6. Blood pressure goal. Wean esmolol drip as tolerated. Continue Lopressor. No valvular abnormality on echocardiogram. Patient will benefit from anticoagulation. Will discuss initiating rivaroxaban. Magnesium 1.1 on replacement. LFTs downtrending. 02/28-patient clinically better. Off esmolol drip. Currently on digoxin/diltiazem/metoprolol adequately rate controlled. Started on rivaroxaban for CVA prophylaxis based on chads score. Transition to medical floor. Will likely discharge in 24 to 48 hours pending clinical improvement. Continue nutrition support/therapies. LFTs downtrending 03/01-patient doing well. No overnight events. Rate controlled. Currently on digoxin/beta-xavier/Cardizem. Continue edoxaban for CVA prophylaxis. Continue posthospitalization rehab at SNF. Date of admission: 02/20/20 16:15 Discharge date: 03/01/20 Primary care physician: Scott Jasso DO Consults: 02/20/20 15:18 Consult to Physician [CONS] Stat Comment: Consulting Provider: Bogdan Julien Reason For Exam: Physician to Consult 02/20/20 16:32 Consult to Physician [CONS] Routine Comment: Consulting Provider: Stephane Nava Reason For Exam: Physician to Consult 02/27/20 19:13 Consult to Physician [CONS] Routine Comment: Consulting Provider: [facility] Denys Reason For Exam: Physician to Consult Discharge Meds Discharge Medications Home Medications amlodipine 10 mg tablet 10 mg PO QDAY #90 tab 08/15/19 [Rx Confirmed 02/20/20 Last Taken 02/18/20 18:00] atorvastatin 40 mg tablet 40 mg PO QDAY #90 tab 08/15/19 [Rx Confirmed 02/20/20 Last Taken 02/18/20 18:00] lansoprazole 30 mg capsule,delayed release 30 mg PO QDAY #90 cap 08/15/19 [Rx Confirmed 02/20/20 Last Taken 02/18/20 18:00] nadolol 40 mg tablet 40 mg PO QDAY #90 tab 08/15/19 [Rx Confirmed 02/20/20 Last Taken 02/18/20 18:00] sertraline 50 mg tablet 50 mg PO QDAY #90 tab 08/15/19 [Rx Confirmed 02/20/20 Last Taken 02/18/20 18:00] digoxin 125 mcg PO DAILY@1400 #30 tab 03/01/20 [Rx Last Taken Unknown] diltiazem HCl [Cardizem CD] 120 mg PO QAM #30 cap 03/01/20 [Rx Last Taken Unknown] furosemide 20 mg PO DAILY #30 tab 03/01/20 [Rx Last Taken Unknown] lisinopril 10 mg PO HS #30 tab 03/01/20 [Rx Last Taken Unknown] metoprolol tartrate 75 mg PO BID #30 tab 03/01/20 [Rx Last Taken Unknown] rivaroxaban [Xarelto] 15 mg PO BIDCC #40 tab 03/01/20 [Rx Last Taken Unknown] thiamine mononitrate (vit B1) 100 mg PO DAILY #30 tab 03/01/20 [Rx Last Taken Unknown] COURSE Hospital Course Hospital course: . Discharge diagnosis: . Time Spent with Patient Time attestation: Total time spent providing and/or coordinating discharge services: EXAM Constitutional Vitals: Temp Pulse Resp BP Pulse Ox 97.6 F 96 H 22 122/78 94 03/01/20 07:59 03/01/20 07:59 03/01/20 07:59 03/01/20 07:59 03/01/20 07:59 Discharge Data Data Completed and Pending Labs on day of discharge: Labs from last 24 hours 03/01/20 03/01/20 05:18 05:18 WBC 5.6 RBC 3.17 L Hgb 11.2 L Hct 33.9 L MCV 106.9 H MCH 35.3 H MCHC 33.0 RDW 14.6 H Plt Count 268 MPV 10.9 H Neut % (Auto) 70.3 Lymph % (Auto) 12.8 L [place] % (Auto) 14.6 H Eos % (Auto) 1.6 Baso % (Auto) 0.7 Lymph # (Auto) 0.72 L [place] # (Auto) 0.82 Eos # (Auto) 0.09 Baso # (Auto) 0.04 Absolute Neutrophils 3.95 Sodium 139 Potassium 3.3 Chloride 96 Carbon Dioxide 33 H Anion Gap 10.0 BUN 9 Creatinine 0.8 GFR Calculation 91 Glucose 105 Calcium 9.7 Total Bilirubin 0.4 AST 51 H ALT 49 H Alkaline Phosphatase 110 Total Protein 5.8 L Albumin 2.8 L Globulin 3.0 Albumin/Globulin Ratio 0.9 L Discharge Plan Patient/Caregiver Discharge Instructions Activity: ambulate only with your walker Diet: Regular Diet Activity Restrictions/Additional Instructions: Follow-up PCP in [5] days I recommend primary care physician to check CBC BMP UA as a posthospital follow- up in 1 week. Rivaroxaban for CVA prophylaxis 15 mg twice daily for 20 days followed by 20 g daily Continue Cardizem 120 CD/lisinopril/digoxin. Discontinue thiazide/losartan combination and amlodipine. Continue aggressive bowel regimen to prevent constipation Maintain fall precautions Daily weights measurements High protein calorie supplements All meals on chair sitting upright at 90 degrees to prevent aspiration Return to ER if concerning symptoms noted including worsening shortness of breath, fever chills, neurological changes, diarrhea, bleeding Reviewed risk and side effect profile of medications including anticoagulants. Side effect may include mild to severe reaction including life- threatening/intracranial bleed and even which can be prevented by close follow-up with PCP and monitoring for side effects Refrain from smoking and alcohol Continue diet and activity as advised Discussed importance of medication adherence Please review medication list with patient prior to discharge Please schedule follow-up with PCP/Providers prior to discharge and provide printouts Prescriptions: New lisinopril 10 mg Tablet 10 mg PO HS Qty: 30 RF: 0 digoxin 125 mcg (0.125 mg) Tablet 125 mcg PO DAILY@1400 Qty: 30 RF: 0 furosemide 20 mg Tablet 20 mg PO DAILY Qty: 30 RF: 0 metoprolol tartrate 25 mg Tablet 75 mg PO BID Qty: 30 RF: 0 thiamine mononitrate (vit B1) 100 mg Tablet 100 mg PO DAILY Qty: 30 RF: 0 Xarelto 15 mg Tablet 15 mg PO BIDCC Qty: 40 RF: 0 diltiazem HCl [Cardizem CD] 120 mg capsule,extended release 24hr 120 mg PO QAM Qty: 30 RF: 0 Continued amlodipine 10 mg tablet 10 mg PO QDAY Qty: 90 RF: 3 atorvastatin 40 mg tablet 40 mg PO QDAY Qty: 90 RF: 3 lansoprazole 30 mg capsule,delayed release(DR/EC) 30 mg PO QDAY Qty: 90 RF: 3 sertraline 50 mg tablet 50 mg PO QDAY Qty: 90 RF: 3 Discontinued losartan-hydrochlorothiazide 100-25 mg tablet 1 tab PO QDAY Qty: 90 RF: 3 No Action nadolol 40 mg tablet 40 mg PO QDAY Qty: 90 RF: 3 Follow Up Plan Follow up with: Scott Jasso DO [Primary Care Provider] - Patient Disposition: Xfer SNF Rehab Potential: Fair I certify that the patient requires SNF services: Yes Overall status at discharge: patient is not back to baseline Discharge Orders: Discharge Order (Routine); Ordered 03/01/20 Ordered By: Yuriy LUNDBERG VTE Deep Vein Thrombosis/Pulmonary Embolism Present on Admission: No
== END 2020-03-01 11:47 | DRG 308 ==
LOC: ED 09:42 → ICU 16:15 → MEDSUR 02-29 13:03
PROVIDERS: ADMIT Internal Medicine; ATTEND Internal Medicine